=== PATIENT | male | born 1945 | race Caucasian/White ===

== ENCOUNTER 2020-09-08 10:10 | Outpatient (CLI) | payer MEDICARE, SELFPAY | END 2020-09-08 10:11 | disposition home or self-care (01) | LOC: ANHCOVIDVC 10:10 | PROVIDERS: PCP Family Medicine | DX: Z23 Encounter for immunization (principal) | CPT/HCPCS: 0001A; 91300 ==

== ENCOUNTER 2020-09-29 10:01 | Outpatient (CLI) | payer MEDICARE, SELFPAY | END 2020-09-29 10:02 | disposition home or self-care (01) | LOC: ANHCOVIDVC 10:01 | PROVIDERS: PCP Family Medicine | DX: Z23 Encounter for immunization (principal) | CPT/HCPCS: 0002A; 91300 ==

== ENCOUNTER → 2020-11-18 06:29 | Outpatient (CLI) | payer MEDICARE, SELFPAY ==
[2020-11-21 12:21] LABS: SARS-CoV-2 RNA PCR Positive
== END ==
PROVIDERS: PCP Family Medicine; Visit Provider Family Medicine
DX: U07.1 COVID-19 (principal)
CPT/HCPCS: C9803; U0003; U0005

== ENCOUNTER → 2021-01-30 07:10 | Outpatient (CLI) | payer MEDICARE, SELFPAY ==
[2021-01-30 18:17] LABS: SARS-CoV-2 RNA PCR Negative
== END ==
PROVIDERS: PCP Family Medicine; Visit Provider Family Medicine
DX: R05 Cough (principal); Z20.822 Contact with and (suspected) exposure to COVID-19
CPT/HCPCS: C9803; U0003; U0005

== ENCOUNTER → 2021-07-16 14:21 | Outpatient (CLI) | payer MEDICARE, SELFPAY ==
--- NOTE | ~2021-07-16 | XR_ITS ---
EXAMINATION: XR chest 2V DATE: 07/16/2021 14:53 INDICATION: Cough. TECHNIQUE: Frontal and lateral views of the chest were obtained. COMPARISON: Chest single view 10/08/2018, PET CT 08/11/2013 FINDINGS: There are small pleural effusions. There are airspace opacities in right lung base. No pneu mothorax. Cardiomegaly is noted. Median sternotomy wires and mediastinal surgical clips are seen, lik rod from prior coronary artery bypass grafting. There is a left chest wall pacer with leads in the ri ght atrium and right ventricle. There are healed right rib fractures. There is mild chronic anterior wedging of multiple thoracic vertebral bodies. IMPRESSION: 1. Small pleural effusions. 2. Airspace opacities at right lung base, consistent with atelectasis versus pneumonia. 3. Cardiomegaly. Reviewed, dictated and finalized at location A. HATCHERY SPECIALIST IMPRESSION: 1. Small pleural effusions. 2. Airspace opacities at right lung base, consistent with atelectasis versus pn eumonia. 3. Cardiomegaly.
== END ==
PROVIDERS: PCP Family Medicine; Visit Provider Family Medicine
DX: R05.9 Cough, unspecified (principal); J90 Pleural effusion, not elsewhere classified; I51.7 Cardiomegaly; R91.8 Other nonspecific abnormal finding of lung field
CPT/HCPCS: 71046

== ENCOUNTER 2021-11-19 13:16 | Inpatient (IN) | payer MEDICARE, SELFPAY ==
[2021-11-19] VITALS (13 sets, daily range): BP systolic 102–117; BP diastolic 66–85; PULSE 68–81; RESP 13–24; TEMP 35.7–36.8; O2SAT 88–100; BMI 26.9
--- NOTE | ~2021-11-19 | CT_ITS ---
EXAMINATION: CT chest abdomen pelvis w con DATE: 11/19/2021 16:15 INDICATION: Rule out pneumonia, ascites . TECHNIQUE: Computed tomography (CT) of the chest, abdomen, and pelvis was performed with 75 mL Omnipa que 300 intravenous contrast. Automated exposure control and iterative reconstruction technique were employed. The dose-length product was 1019.50 mGy-cm. COMPARISON: PET CT 08/11/2013. FINDINGS: Early phase of contrast injection, with prominent right heart and pulmonary arterial enhancement. Braenna m hardening artifact from arm down positioning. Thoracic aorta: 4.7 cm fusiform ascending thoracic aortic aneurysm. Atherosclerotic arch calcificatio ns. Mild ectasia. Lung parenchyma and airways: Emphysematous and senescent changes. Right lower lobe mass, stable since 2013. Mild bibasilar atelectasis. Thoracic inlet, axillae and chest wall: No thyroid or sofft tissue mass. No axillary lymphadenopathy. Mediastinum: No mass or lymphadenopathy. Pulmonary arteries are well opacified without embolus. Pulmo nary artery dilation as can be seen with pulmonary arterial hypertension. Heart and pericardium: Cardiomegaly. No pericardial effusion. Prior CABG. Coronary artery calcifications: Heavy. Pleura: Small bilateral effusions. Thoracic bones: No acute osseous finding in the chest. ABDOMEN/PELVIS: There is essentially no contrast enhancement in the abdomen. Beam hardening artifact from arm positio n. Liver: Faint arterial phase enhancement. Hepatic vein reflux. Left lobe cyst. Biliary/Gallbladder: Gallbladder is absent. No bile duct dilation. Pancreas: No mass or duct dilation. Spleen: Normal. Adrenals:No mass. Kidneys: Multiple right renal cysts. No stone or hydronephrosis. GI tract: No small or large bowel dilation. Normal appendix. Mesentery/Peritoneum: Moderate volume intraperineal fluid. Retroperitoneum: No mass. Heavy abdominal aortic calcification. 3.5 cm fusiform abdominal aortic aneu rysm. Bilateral common iliac artery aneurysms measuring 3.4 cm on the left and 2.3 cm on the right. L arge left internal iliac artery aneurysm measuring 5.7 cm transverse by 7.[address] ents at the bifurcation feeding aortobifemoral graft, patency not assessed. IVC filter. Pelvis: Uterus not visualized. Bilateral common femoral artery aneurysms with heavy femoral artery ca lcifications and aortobifemoral grafts. Graft patency not assessed. Soft Tissues: Diffuse body wall edema. Left gluteal intramuscular lipoma measuring 11.6 cm in greates t dimension. Abdominopelvic bones: No acute osseous finding in the abdomen/pelvis. IMPRESSION: 1. Limited examinations of the chest and abdomen as described above. 2. No definite CT evidence of pneumonia 3. 4.7 cm ascending thoracic aortic aneurysm, consider CT angiography of the chest in 2-3 years to as sess stability 4. Small bilateral pleural effusions 5. Cardiomegaly with evidence of right heart failure and pulmonary arterial hypertension. 6. Anasarca with moderate ascites. 7. 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 8. 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 Reviewed, dictated and finalized at location K. IMPRESSION: 1. Limited examinations of the chest and abdomen as described above. 2. No definite CT evidence of pneumonia 3. 4.7 cm ascending thoracic aortic aneurysm, consider CT angiography of the ch est in 2-3 years to assess stability 4. Small bilateral pleural effusions 5. Cardiomegaly with evidence of right heart failure and pulmonary arterial hyp ertension. 6. Anasarca with moderate ascites. 7. 5.7 x 7.4 cm left internal iliac aneurysm, consider surgica
--- NOTE | ~2021-11-19 | XR_ITS ---
XR chest 2V 11/24/2021 16:19 Indication: CHF Procedure: PA and lateral views of the chest Comparison: Comparison to multiple prior studies sequentially, with oldest reviewed study dated 02/2012. Findings: Status post median sternotomy for CABG. Moderate cardiomegaly. Pacemaker leads are stable. Chronic right pleural effusion versus pleural thickening. There is right basilar airspace disease whi ch may represent atelectasis, scarring or pneumonia. Multiple healed right rib fractures. The lungs are hyperinflated which is consistent with, but not diagnostic of chronic obstructive pulmo nary disease. There is a partially visualized IVC filter in the upper abdomen. Impression: 1: Right basilar airspace disease is not significantly changed, most likely atelectasis/scarring. Pne umonia less favored. 2: Small right pleural effusion versus pleural thickening. Reviewed, dictated and finalized at location A. Impression: 1: Right basilar airspace disease is not significantly changed, most likely ate lectasis/scarring. Pneumonia less favored. 2: Small right pleural effusion versus pleural thickening.
--- NOTE | ~2021-11-19 | US_ITS ---
EXAMINATION: US paracentesis abd w/image DATE: 11/20/2021 11:41 INDICATION: Ascites. TECHNIQUE: The procedure and its risks, benefits, and alternatives were discussed with the patient. P otential risks discussed included bleeding and infection. The skin was prepped and draped in sterile fashion. 1% lidocaine was used for local anesthesia. Under ultrasound guidance, a 5 Fr catheter with trochar was advanced into the ascites in the left lower quadrant. Fluid was aspirated. The catheter w as removed, and a dressing was applied. There were no immediate complications. FINDINGS: Ultrasound images demonstrate ascites and the catheter within the fluid. IMPRESSION: 1. Successful ultrasound-guided paracentesis yielding 1800 mL of clear, yellow fluid. Reviewed, dictated and finalized at location A.
--- NOTE | ~2021-11-19 | XR_ITS ---
EXAMINATION: XR chest 1V portable DATE: 11/19/2021 13:47 INDICATION: Shortness of breath TECHNIQUE: frontal view of the chest was obtained. COMPARISON: Chest radiograph dated 07/16/2021 FINDINGS: Cardiomegaly. Median sternotomy wires and mediastinal surgical clips are seen, likely from prior lamar nary artery bypass grafting. Three lead pacemaker/AICD seen with leads projecting over the expected l ocations of the right atrial appendage, apex of the right ventricle and overlying the left ventricle likely having traversed the coronary sinus. Slight increase in opacities in the right mid and lower lung zone with blunting at the costophrenic a ngle consistent with decreasing small left pleural effusion with associated atelectasis or pneumonia. Left lung remains clear with no pleural effusion. No pneumothorax. Multiple old right rib fractures. IMPRESSION: 1. Increasing small right pleural effusion with associated atelectasis or pneumonia in the mid and lo wer lung zones. 2. Cardiomegaly. Reviewed, dictated and finalized at location B. IMPRESSION: 1. Increasing small right pleural effusion with associated atelectasis or pneum onia in the mid and lower lung zones. 2. Cardiomegaly.
--- NOTE | 2021-11-19 13:31 | ECG_ITS ---
Measurements Intervals [place] Rate: 73 P: PA: 0 QRS: -22 QRSD: 181 T: 151 QT: 493 QTc: 546 Interpretive Statements ELECTRONIC VENTRICULAR PACEMAKER VENTRICULAR PREMATURE COMPLEX BASELINE ARTIFACT- I, II, III, AVR, AVL NO FURTHER INTERPRETATION IS POSSIBLE ATYPICAL ECG Electronically Signed On 11-19-2021 14:09:42 CDT by Jon Carlos D.O.
[2021-11-19 14:01] LABS: Basophils Percent Auto 0.5 % (0.2-1.2); Eosinophils Percent Auto 0.7 % (0-4.4); Hematocrit 35.2 % (42.0-52.0); Hemoglobin 11.6 g/dL (14.0-18.0); Immature Granulocyte Absolute 0.03 K/mm3 (0.00-0.031); Immature Granulocyte Percent A 0.5 % (0-0.5); Lymphocytes Absolute Auto 0.25 K/mm3 (0.9-3.2); Lymphocytes Percent Auto 4.2 % (18.3-44.2); Mean Corpuscular Hemoglobin 35.6 pg (26-34); Mean Platelet Volume 10.1 fl (7.4-10.4); Monocytes Absolute Auto 0.9 K/mm3 (0.1-0.6); Monocytes Percent Auto 15.1 % (2.6-8.5); Neutrophils Absolute Auto 4.8 K/mm3 (1.3-6.7); Platelet Count Result 155 k/mm3 (150-375); Red Blood Count 3.26 M/mm3 (4.6-6.20); Red Cell Distribution Width 15.9 % (11.5-14.5)
[2021-11-19 14:12] LABS: Alanine Aminotransferase 23 U/L (6-50); Albumin Level 3.6 g/dL (3.5-5.1); Alkaline Phosphatase 123 U/L (38-126); Anion Gap 5 mmol/L (8-16); Aspartate Amino Transferase 38 U/L (17-59); Blood Urea Nitrogen 28 mg/dL (9-20); Calcium 8.3 mg/dL (8.4-10.2); Carbon Dioxide 31 mmol/L (22-30); Chloride 95 mmol/L (98-107); Estimated Glomerular Filt Rate > 60; Glucose 121 mg/dL (65-110); Potassium 4.6 mmol/L (3.4-5.0); Sodium 131 mmol/L (137-145)
--- NOTE | 2021-11-19 14:16 | ED.GENADULT ---
HPI - General Adult General Chief complaint: Weakness Stated complaint: short of breath Time Seen by Provider: 11/19/21 13:28 Source: patient and family Limitations: no limitations History of Present Illness HPI narrative: Patient is 76 years old white male presented to the ED with gradual progression of shortness of breath on exertion, swelling of the lower extremities, spells of coughing lasted 10 to 15 minutes. Patient was seen his family physician 1 week ago, Lasix was increased and spironolactone was started. History of COVID infection March 2020, hypertension, hyperlipidemia, CABG x2, 8 stent lower extremity and aortic aneurysm. Patient currently on Plavix, he does not smoke and drinks occasionally. He denies any fever, chills, nausea, vomiting, diarrhea, constipation. Related Data Home Medications Medication Instructions Recorded Confirmed carvedilol 11/19/21 clopidogrel 11/19/21 dapagliflozin [Farxiga] mg 11/19/21 furosemide 11/19/21 nitroglycerin mg 11/19/21 pantoprazole PO 11/19/21 simvastatin mg 11/19/21 spironolactone 11/19/21 Allergies Allergy/AdvReac Type Severity Reaction Status Date / Time No Known Allergies Allergy Unknown Verified 11/19/21 13:34 Review of Systems Review of Systems: All systems reviewed & are unremarkable except as noted in HPI and below PMFSH Past Medical History Medical History AAA (abdominal aortic aneurysm) 07/1998 Surgical History Surgical History History of coronary artery bypass graft History of endarterectomy Social History Social History Smoking status: Never smoker Alcohol intake: current Substance use: never Substance use type: does not use Exam Narrative: General appearance: Well-developed, well-nourished Skin: Normal color, 4+ edema lower extremity bilaterally Head: Normocephalic, nontraumatic Eyes: Clear conjunctiva ENT: Oropharynx normal, ears normal, nose normal Neck: Supple, nontender Chest and respiratory: Airway patent, no respiratory distress, no accessory muscle use Heart: Regular rate/rhythm Abdomen: Soft, nontender, no organomegaly, quiet bowel sounds, large ascites Vascular: Normal peripheral pulses, normal capillary refill. Musculoskeletal: Normal range of motion, nontender back Neurologic: Alert and oriented ?3, [employer] is normal as tested, no gross motor deficit Course Vital Signs Vital signs: Vital Signs Temperature 35.7 C L 11/19/21 13:19 Pulse Rate 68 11/19/21 13:19 Respiratory Rate 24 H 11/19/21 13:19 Blood Pressure 103/71 11/19/21 13:19 Pulse Oximetry 88 L 11/19/21 13:19 Temperature 35.7 C L 11/19/21 13:19 Pulse Rate 71 11/19/21 16:34 Respiratory Rate 20 11/19/21 16:34 Blood Pressure 107/74 11/19/21 16:34 Pulse Oximetry 100 11/19/21 16:34 Medical Decision Making Vital Signs Vital Signs: Vital Signs Temperature 35.7 C L 11/19/21 13:19 Pulse Rate 68 11/19/21 13:19 Respiratory Rate 24 H 11/19/21 13:19 Blood Pressure 103/71 11/19/21 13:19 Pulse Oximetry 88 L 11/19/21 13:19 Temperature 35.7 C L 11/19/21 13:19 Pulse Rate 71 11/19/21 16:34 Respiratory Rate 20 11/19/21 16:34 Blood Pressure 107/74 11/19/21 16:34 Pulse Oximetry 100 11/19/21 16:34 Lab Data Result diagrams: 11/19/21 13:51 11/19/21 13:51 Labs: Lab Results 11/19/21 11/19/21 11/19/21 Range/Units 13:51 13:51 13:51 WBC 6.0 (4.5-10.0) K/mm3 RBC 3.26 L (4.6-6.20) M/mm3 Hgb 11.6 L (14.0-18.0) g/d
[2021-11-19 14:20] LABS: INR 1.4; NT Pro B Type Natriuretic Pept 23100 pg/mL (5-100); Partial Thromboplastin Time 37.2 SECONDS (22.3-36.8); Prothrombin Time 16.5 Seconds (11.1-14.7)
[2021-11-19 14:26] LABS: Troponin I 0.015 ng/mL (0.000-0.034)
[2021-11-19 14:35] LABS: Alveolar/Arterial O2 Gradient 21.8 mmHg; Base Excess ABG 1.4 mEq/l (+/-2.0); Fractional Inspired Oxygen 21 %; HCO3 ABG 25.7 mEq/l (22.0-26.0); Oxygen Content ABG 16.5 %vol (16.0-22.0); Oxygen Saturation ABG 96.2 % (95.0-100.0); Oxyhemoglobin 94.2 % THb (90.0-100.0); PCO2 ABG 39.6 mmHg (35.0-45.0); PO2 ABG 80.5 mmHg (80.0-100.0); PO2 FiO2 Ratio Arterial Blood 3.83 %; Total Hemoglobin 12.4 g/dL (12.0-18.0)
[2021-11-19 15:02] LABS: Appearance Urine Clear (Clear); Bilirubin Urine Negative (Negative); Blood Urine Negative (Negative); Color Urine Yellow (Yellow); Glucose Urine UA 1+ mg/dL (Negative); Ketones Urine Negative (Negative); Leukocyte Esterase Ur Negative LEU/UL (Negative); Nitrate Urine Negative (Negative); Protein Urine Negative (Negative); Urobilinogen Urine 0.2 mg/dL (<2.0)
[2021-11-19 15:04] LABS: Add Urine Microscopic? NO
[2021-11-19 15:07] LABS: SARS-CoV-2 RNA PCR Negative
[2021-11-19] MEDS: FUROSEMIDE INJ 40 MG/4 ML VIAL 60 MG IV PUSH (15:21)
[2021-11-19 15:35] LABS: CRP < 0.5 mg/dL (<1.0)
[2021-11-19 16:03] LABS: Lactic Acid Reflex 1.2 mmol/L (0.7-2.0)
[2021-11-19 17:19] LABS: Troponin I 0.014 ng/mL (0.000-0.034)
--- NOTE | 2021-11-19 19:00 | ADMGEN ---
This patient, Bairon Rodas, was admitted to IMU Room 201-01. Patient/family oriented to hospital policies and general routines including ID bracelet, bed and alarms, visiting hours, pain management, procedures, bathroom and other care routines, personal items, smoking policy, room service/diet, and visiting hours. Information on how to activate the Rapid Response Team has been discussed. Patient/Family are encouraged to report perceived risks to care and to ask questions if they do not understand what they are told or what they should do.
[2021-11-19 19:50] LABS: Troponin I 0.021 ng/mL (0.000-0.034)
--- NOTE | 2021-11-19 21:13 | PM.IMHP ---
H&P: HPI History of Present Illness Date/Time: 11/19/21 21:13 Chief Complaint: Shortness of breath. Narrative: This is a 76-year-old male with past medical history significant for systolic heart failure ejection fraction calculated 15% to 18%, AICD, peripheral arterial vascular disease, abdominal aortic aneurysm, coronary artery disease status post coronary artery bypass graft, type 2 diabetes mellitus, GERD. Patient presents to the emergency room due to shortness of breath which is present at rest initially present only at exertion but then with minimal activity now at rest, PND, orthopnea, patient reclines in his bed, bilateral lower extremity swelling, increased abdominal girth, which has made the patient very uncomfortable. Patient denies any chest pain, cough, sputum production, fevers, chills, rigors, syncope, near syncope, dizziness, lightheadedness. Preliminary workup was significant for brain natriuretic peptide 23 cell sent, CT of abdomen and pelvis with moderate amount of ascites. Patient has been admitted for further evaluation management and treatment. Review of Systems Review of Systems: Bilateral lower extremity swelling, increased abdominal girth, PND, orthopnea, shortness of breath. Constitutional: Comments: No fevers, no rigors, no chills, weight gain. Eyes: Comments: Denies any vision changes ENT: Denies dysphagia, Denies vertigo, Denies dizziness, Denies dry mouth, Denies nasal congestion, Denies nasal discharge, Denies neck pain, Denies odynophagia and Denies sore throat Comments: Denies Cardiovascular: Cardiovascular: Denies chest pain, Denies syncope, Reports pedal edema, Reports edema, Denies irregular heart rhythm, Denies claudication, Reports leg edema, Denies lightheadedness, Denies radiating jaw, neck or arm pain, Reports dyspnea, Reports dyspnea on exertion, Reports orthopnea and Reports paroxysmal nocturnal dyspnea Respiratory: Respiratory: Denies change in phlegm color, Denies chest congestion, Reports cough and Denies excessive phlegm production Gastrointestinal: Gastrointestinal: Reports bloating, Denies dyspepsia, Denies heartburn, Denies diarrhea, Denies nausea and Denies vomiting Genitourinary: Genitourinary: Denies dysuria Musculoskeletal: Musculoskeletal: Denies myalgias Integumentary/Breasts: Skin/Breast: Denies rash Neurologic: Denies vertigo, Denies dizziness, Denies focal weakness and Denies Sensory deficit (Neuro) Endocrine: Endocrine: Denies cold intolerance, Denies fatigue, Denies flushing, Denies heat intolerance, Denies polyphagia, Denies polydipsia, Denies polyuria and Denies palpitations Hematologic/Lymphatic: Hematologic/Lymphatic: Reports no additional hematologic/lymphatic complaints and Reports as per HPI Allergic/Immunologic: Allergic/Immunologic: Reports no additional allergic/immunologic complaints and Reports as per HPI PMFSH Past Medical History Medical History (Updated 11/20/21 @ 12:16 by Kenneth Mcclain MD) AAA (abdominal aortic aneurysm) 07/1998 CAD (coronary artery disease) CHF (congestive heart failure) Surgical History Surgical History History of coronary artery bypass graft History of endarterectomy Social History Social History Smoking packs per day: 2 Smoking cigarettes per day: 40.0 Years smoked: 30 Smoking pack-years: 60.00 Smoking status: Former smoker Tobacco type: cigarettes Alcohol intake: current Drinks per week: 7 Substance use: never Substance use type: does not use Spiritual care concerns: Yes (Rastafarian) Meds Home Medications and Allergies Home Medications Medication Instructions Recorded Confirmed Type carvedilol 12.5 mg tablet (Coreg) 12.5 mg PO DAILY 11/19/21 11/19/21 History carvedilol 25 mg tablet 25 mg PO HS 11/19/21 11/19/21 History clopidogrel 75 mg tablet 75 mg PO HS 11/19/21 11/19/21 Histor
[2021-11-19] MEDS: FUROSEMIDE INJ 40 MG/4 ML VIAL IV PUSH (22:00)
[2021-11-19] MEDS: carvediloL 25 MG TABLET PO (23:38)
[2021-11-19] MEDS: TIZANIDINE HCL 4 MG TABLET PO (23:38)
[2021-11-19] MEDS: SIMVASTATIN 20 MG TABLET PO (23:38)
[2021-11-19] MEDS: CLOPIDOGREL BISULFATE 75 MG TABLET PO (23:39)
[2021-11-19] MEDS: SACUBITRIL/VALSARTAN 24-26 MG TABLET 1 TAB PO (23:39)
[2021-11-20] VITALS (19 sets, daily range): BP systolic 99–108; BP diastolic 58–74; PULSE 70–82; RESP 16–26; TEMP 36.3–37.2; O2SAT 91–99
--- NOTE | 2021-11-20 | ECHO_ITS ---
Patient Info Name: Bairon Rodas Age: 76 years : 1945 Gender: Male Ht: 70 in Wt: 187 lbs BSA: 2.06 m2 HR: 71 bpm BP: 102 / 68 mmHg Heart Rhythm: Sinus Arrhythmia Technical Quality: Fair Exam Date: 11/20/2021 7:46 AM Exam Location: [facility] Patient Status: Inpatient Admit Date: 11/19/2021 Staff Ordering Physician: Monica Fountain MD Chief Information Security Officer: Judy Pierce RDCS Attending Provider: Elmer Tobias MD Referring Physician: Essie LUCIANO; Exam Type: CA echo doppler color flow Study Info Indications - CHF Complete two-dimensional, color flow and Doppler transthoracic echocardiogram is performed. Summary 1. Complete two-dimensional, color flow and Doppler transthoracic echocardiogram is performed. 2. Moderate to severe LV enlargement, mild LVH, severe global LV systolic dysfunction, ejection fraction less than 15%. Diastolic dysfunction with elevated left atrial pressures. RV enlargement with systolic dysfunction. Severe biatrial enlargement. ICD/pacemaker leads in RA/RV. Mitral valve leaflets mildly thickened, mild MR. Normal aortic valve, no stenosis, mild aortic regurgitation. Moderate tricuspid regurgitation, moderate pulmonary hypertension, RVSP 46 mmHg. Mild pulmonic regurgitation. Dilated IVC without respiratory collapse. Left pleural effusion. Left Ventricle Left ventricular chamber dimension is moderately enlarged. Left ventricular systolic function is severely reduced, estimated at <15%. There is mildly increased left ventricular wall thickness. The left ventricular diastolic function is abnormal. E/e' 21.4 is abnormal. Right Ventricle Right ventricular chamber dimension is moderately enlarged. Linear artifact in right ventricle suggestive of catheter(s), pacemaker lead(s), or ICD lead(s). Left Atria Left atrial chamber dimension is severely enlarged. Right Atria Right atrial chamber dimension is moderately enlarged. Linear artifact in the right atrium suggestive of catheter(s), pacemaker lead(s), or ICD lead(s). Aortic Valve The aortic valve is normal. There is mild aortic valve stenosis with a peak velocity of 109 cm/s, mean gradient of 3 mmHg, and aortic valve area of 2.0 cm2. There is trace aortic valve regurgitation. Pulmonic Valve The pulmonic valve is not well visualized. There is mild pulmonic regurgitation. Mitral Valve The mitral valve has thickened leaflets. There is mild mitral valve regurgitation. Tricuspid Valve The tricuspid valve leaflets are normal. There is moderate tricuspid valve regurgitation. Moderate pulmonary hypertension, estimated pulmonary arterial systolic pressure is 46 mmHg. Pericardium/Pleural The pericardium appears normal. There is no pericardial effusion. Inferior Vena Cava Dilated inferior vena cava with no collapse upon inspiration consistent with elevated right atrial pressure, 15 mmHg. Aorta The aortic root size at the sinus of Valsalva is normal. Left Ventricular Outflow Tract Name Value Normal LVOT 2D LVOT Diameter 2.4 cm LVOT Doppler LVOT Peak Gradient 1 mmHg LVOT
[2021-11-20 06:40] LABS: Anion Gap 6 mmol/L (8-16); Blood Urea Nitrogen 31 mg/dL (9-20); Calcium 8.4 mg/dL (8.4-10.2); Carbon Dioxide 31 mmol/L (22-30); Chloride 93 mmol/L (98-107); Estimated CRCL calculation 56 ml/min; Estimated Glomerular Filt Rate 59; Glucose 97 mg/dL (65-110); Potassium 4.1 mmol/L (3.4-5.0); Sodium 130 mmol/L (137-145)
[2021-11-20 07:37] LABS: Device ROOM AIR; Modified Allen's Test Pass; Site Drawn RIGHT RADIAL
--- NOTE | 2021-11-20 08:18 | PM.CNCAR ---
Assessment and Plan Assessment and plan (1) Acute on chronic systolic CHF (congestive heart failure), NYHA class 4: Code(s): I50.23 - Acute on chronic systolic (congestive) heart failure Status: Acute Assessment and Plan: 76-year-old male with CAD, history of CABG x2 in November 1998 at [facility] (unknown grafts, operative report not available); history of PCI/stenting; CHF with severely reduced ejection fraction status post Bi V ICD placement; PAD, history of AAA repair/aortobifemoral bypass graft; history of tobacco abuse. Patient has baseline NYHA functional class III symptoms, admitted to the hospital with acute on chronic CHF with reduced ejection fraction with symptoms of worsening shortness of breath, abdominal distention and lower extremity swelling. Bedside echocardiogram on my preliminary evaluation shows severe biventricular enlargement and systolic dysfunction. Symptoms of dyspnea have modestly improved with IV diuresis. -continue IV diuresis with furosemide. May need ionotropic support if necessary. -decrease dose of carvedilol to 6.25 mg p.o. b.i.d. for now, may optimize dose when patient is out of decompensated state. -continue sacubitril/valsartan, spironolactone. Resume SGLT2 inhibitor. -discussed with patient about his severe ischemic cardiomyopathy. He has severe biventricular failure with baseline functional class III symptoms. His previous MPI has shown severe LV systolic dysfunction with fixed defect. May consider outpatient viability test to see if there is any salvageable myocardium. Once patient is out of decompensated state, it would be reasonable to refer patient to Heart failure Clinic at a tertiary care center to check his candidacy for mechanical support device (destination versus bridge). Patient's prognosis guarded. (2) CAD (coronary artery disease): Code(s): I25.10 - Atherosclerotic heart disease of [place] coronary artery without angina pectoris Status: Acute Assessment and Plan: Continue clopidogrel, statin. (3) PAD (peripheral artery disease): Code(s): I73.9 - Peripheral vascular disease, unspecified Status: Acute Assessment and Plan: Continue clopidogrel, statin. Additional Plan DVT prophylaxis. History of Present Illness History of Present Illness Consult date/time: 11/20/21 08:18 DATE OF CONSULT: 11/20/2021 REASON FOR CONSULT: CHF REQUESTING PHYSICIAN:Bhakti Chun MD CHIEF COMPLAINT: Worsening shortness of breath HPI: 76-year-old male with CAD, history of CABG x2 in November 1998 at [facility] (unknown grafts, operative report not available); history of PCI/stenting; CHF with severely reduced ejection fraction status post Bi V ICD placement; PAD, history of AAA repair/aortobifemoral bypass graft; history of tobacco abuse. Patient follows-up with Dr. Stark for cardiovascular care. He [facility] Room on 11/19/2021 with complaints of worsening shortness of breath, abdominal distension and lower extremity swelling. At baseline, patient has NYHA functional class 3 symptoms. He has dyspnea with minimal exertion. He reports worsening dyspnea for last 6 weeks with dyspnea at rest associated with weight gain. He denies chest pain. He denies palpitations, dizziness or syncope. Denies any ICD shocks. Patient states that he was on anticoagulation in the past for AFib but stopped taking it for some unknown reasons, and has been only on single antiplatelet treatment with clopidogrel. EKG on my personal evaluation showed ventricular paced rhythm. Serial troponins [place] [id number]. Chest x-ray shows increasing small right pleural effusion with associated atelectasis or pneumonia in the mid and lower lung zones, cardiomegaly. CT chest abdomen, pelvis shows 4.7 cm ascending thoracic aortic aneurysm,small bilateral pleural effusion, cardiomegaly with evidence of ri
[2021-11-20] MEDS: SACUBITRIL/VALSARTAN 24-26 MG TABLET 1 TAB PO ×2 (09:13→20:20)
[2021-11-20] MEDS: SPIRONOLACTONE 25 MG TABLET PO (09:13)
[2021-11-20] MEDS: FUROSEMIDE INJ 40 MG/4 ML VIAL IV PUSH ×2 (09:13→20:19)
[2021-11-20] MEDS: PANTOPRAZOLE 40 MG TABLET PO (09:13)
[2021-11-20 09:22] LABS: Alanine Aminotransferase 20 U/L (6-50); Albumin Level 3.2 g/dL (3.5-5.1); Alkaline Phosphatase 113 U/L (38-126); Aspartate Amino Transferase 32 U/L (17-59); Bilirubin,Total 1.2 mg/dL (0.2-1.3)
--- NOTE | 2021-11-20 10:52 | PC.NURSE ---
Patient transporting to ultrasound for paracentesis. Physician order that nurse does not have to accompany.
--- NOTE | 2021-11-20 11:46 | PC.NURSE ---
[facility] flyer was given to patient.
--- NOTE | 2021-11-20 12:01 | PM.IMPN ---
Progress Note: A&P Assessment and Plan (1) CHF (congestive heart failure): Qualifiers: Heart failure chronicity: unspecified Heart failure type: unspecified Qualified Code(s): I50.9 - Heart failure, unspecified Code(s): I50.9 - Heart failure, unspecified Status: Acute Assessment and Plan: Patient with Acute on Chronic Systolic and Diastolic CHF exacerbation. Patient presents with weakness, abdominal bloating leg edema consistent with fluid overload. Chest x-ray showing increasing right pleural effusion and cardiomegaly. CT of the chest, abdomen pelvis was performed which did have some limitations showing small bilateral pleural effusions and ascites. BNP was 23K. Troponin negative x3. EKG showed paced rhythm. Echocardiogram showed severe LV enlargement with severe global LV systolic dysfunction and EF of less than 15% as well as abnormal diastolic function. He also has RV enlargement with right ventricular systolic dysfunction and severe biatrial enlargement. Mild valvular disease as well as moderate TR and moderate pulmonary hypertension. Patient on admission was on spironolactone, Entresto, Lasix, dapagliflozin and Coreg. Patient has been started on IV diuretics. He is having clinical improvement. Monitor renal function closely given the high risk for cardiorenal syndrome. PT/OT (2) Anasarca: Code(s): R60.1 - Generalized edema Status: Acute Assessment and Plan: Patient with anasarca. This is related to CHF. Renal functions normal so doubt related kidney issues. Liver appears normal on imaging. Albumin is 3.2 so felt unlikely that his anasarca is related to liver failure. patient noted to have ascites again felt related to the CHF. Paracentesis has been ordered. Will add labs to this. Follow-up on these results but suspect this will be transudative from his CHF. Continue current diuresis. Monitor closely. (3) AAA (abdominal aortic aneurysm): Code(s): I71.4 - Abdominal aortic aneurysm, without rupture Status: Inactive Assessment and Plan: CT of the chest on admission shows a 4.7 cm fusiform ascending thoracic aortic aneurysm. Given the severity of his cardiac condition however, it is unlikely that this will be repaired given the high risk. Blood pressure remains well controlled. 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 Also of note is the aortobifemoral graft but patency was not assessed this imaging study. 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 Surgical referral was recommended but patient is being followed by Cardiology. He may be able to undergo stent placement but will defer to Cardiology. Continue Plavix and Zocor. (5) CAD (coronary artery disease): Code(s): I25.10 - Atherosclerotic heart disease of [place] coronary artery without angina pectoris Status: Acute Assessment and Plan: Stable. Most recent Lexiscan was in 2019 showed no reversible ischemia did have fixed inferior defect and his EF was 26%. He has a history of [place] 1998 with another one at some later but not certain time. Underwent 2 vessel CABG in 1998 with MIXON to the LAD and a vein graft to the occluded RCA. He did have severe LV dysfunction at that time but it improved. unclear if ischemia is contributing to his worsening EF but troponin is negative and no complaints of chest pain. EKG showing paced rhythm. Subjective Date/time seen: 11/20/21 12:01 Interval history: 76yo male with CHF, PAD and CAD here for weakness, abdominal bloating and leg edema. He has been havi
[2021-11-20 12:37] LABS: Appearance Peritoneal Fluid Cloudy (Clear); Source Peritoneal Fluid Peritoneal Fluid
[2021-11-20 12:38] LABS: Color Peritoneal Fluid Brown (Colorless); Lymphocytes Peritoneal Fluid 57 %; Macrophages Peritoneal Fluid 7 %; Mesothelial Cells Peritoneal Fluid 1 %; Monocytes Peritoneal Fluid 13 %; Neutrophils Peritoneal Fluid 22 % (0-25); Nucleated Cells Peritoneal Flu 72 /uL (0-500); RBC Peritoneal Fluid 2370 /uL (0-100000)
[2021-11-20] MEDS: CLOPIDOGREL BISULFATE 75 MG TABLET PO (20:19)
[2021-11-20] MEDS: SIMVASTATIN 20 MG TABLET PO (20:19)
[2021-11-20] MEDS: carvediloL 6.25 MG TABLET PO (20:19)
[2021-11-21] VITALS (16 sets, daily range): BP systolic 102–113; BP diastolic 64–83; PULSE 70–83; RESP 16–18; TEMP 36.1–37.1; O2SAT 92–100
[2021-11-21 04:45] LABS: Basophils Percent Auto 0.5 % (0.2-1.2); Eosinophils Percent Auto 0.5 % (0-4.4); Hematocrit 33.9 % (42.0-52.0); Hemoglobin 11.4 g/dL (14.0-18.0); Immature Granulocyte Absolute 0.04 K/mm3 (0.00-0.031); Immature Granulocyte Percent A 0.7 % (0-0.5); Lymphocytes Percent Auto 7.1 % (18.3-44.2); Mean Corpuscular HGB Conc 33.6 g/dl (32-36); Mean Corpuscular Hemoglobin 35.5 pg (26-34); Mean Corpuscular Volume 105.6 fl (80-100); Mean Platelet Volume 9.9 fl (7.4-10.4); Monocytes Percent Auto 17.3 % (2.6-8.5); Neutrophils Absolute Auto 4.1 K/mm3 (1.3-6.7); Neutrophils Percent Auto 73.9 % (45.5-73.1); Platelet Count Result 156 k/mm3 (150-375); Red Blood Count 3.21 M/mm3 (4.6-6.20); Red Cell Distribution Width 15.9 % (11.5-14.5); White Blood Count 5.6 K/mm3 (4.5-10.0)
[2021-11-21 04:57] LABS: Alanine Aminotransferase 20 U/L (6-50); Albumin Level 3.5 g/dL (3.5-5.1); Alkaline Phosphatase 115 U/L (38-126); Anion Gap 4 mmol/L (8-16); Aspartate Amino Transferase 33 U/L (17-59); Bilirubin,Total 1.5 mg/dL (0.2-1.3); Blood Urea Nitrogen 35 mg/dL (9-20); Calcium 8.6 mg/dL (8.4-10.2); Carbon Dioxide 31 mmol/L (22-30); Chloride 91 mmol/L (98-107); Estimated CRCL calculation 48 ml/min; Estimated Glomerular Filt Rate 50; Glucose 110 mg/dL (65-110); Potassium 4.5 mmol/L (3.4-5.0); Sodium 126 mmol/L (137-145)
[2021-11-21 06:05] LABS: Folic Acid 19.4 ng/mL (2.76->20)
--- NOTE | 2021-11-21 08:51 | PM.PNCARD ---
Progress Note: A&P Assessment and Plan (1) CHF (congestive heart failure): Qualifiers: Heart failure chronicity: unspecified Heart failure type: unspecified Qualified Code(s): I50.9 - Heart failure, unspecified Code(s): I50.9 - Heart failure, unspecified Status: Acute Plan 76-year-old man with profound ischemic cardiomyopathy. For a number of years he had been quite stable on good medical regimen with his Bi V ICD he now is decompensated for the last month or so with significant volume overload. I am going to start a low dose of IV dobutamine to try to facilitate his diuresis. Agree that he would benefit from referral to the Heart failure [facility] at [place]. Will facilitate this referral. Prognosis of course is guarded given his very poor ejection fraction/low output Elmer Stark MD [facility] Time Spent With Patient Time with patient: 15 - 25 minutes Subjective Date/time seen: Date of service: 11/21/21 08:51 Interval history: Follow-up visit in this 76-year-old man with: Profound ischemic cardiomyopathy despite appropriate medical therapy and Bi V ICD he presents with significant decompensation with volume overload. Feeling better following paracentesis of 1800 cc yesterday. Still has moderate lower extremity edema. Sitting in the chair at the bedside otherwise essentially comfortable Exam Const: General: comfortable and no acute distress HENMT: Mouth: Yes moist mucous membranes Eyes: Sclera: sclerae normal Pupils: Equal, round and reactive pupils present Neck: Neck: supple Other: Normal carotid upstrokes diminished volume. About 3 cm of jugular venous distention noted Resp: Effort & Inspection: normal respiratory effort Other: Rales noted at the left base Cardio: Rate: regular rate Rhythm: regular rhythm Other: PMI enlarged and laterally displaced, no audible murmur GI: GI Palp: Yes Soft to palpation Auscultation: normal bowel sounds Skin: General skin exam: normal color Neuro: Other: Normal cognition Extrem: Other: 2 to 3+ soft pitting edema up to the knees Objective Data Vital Signs Vital Signs: Vital Signs - 24 hr 11/20/21 12:00 11/20/21 10:00 11/20/21 12:00 Temperature 37.2 C Pulse Rate 73 72 75 Respiratory Rate 16 Blood Pressure 102/58 L Pulse Oximetry 91 Oxygen Delivery Fraction of Inspired Oxygen 11/20/21 12:00 11/20/21 14:00 11/20/21 16:00 Temperature 37.0 C Pulse Rate 74 71 Respiratory Rate 16 Blood Pressure 103/66 Pulse Oximetry 91 Oxygen Delivery Room Air Fraction of Inspired Oxygen 11/20/21 16:00 11/20/21 16:00 11/20/21 18:00 Temperature Pulse Rate 73 82 Respiratory Rate Blood Pressure Pulse Oximetry Oxygen Delivery Room Air Fraction of Inspired Oxygen 11/20/21 20:00 11/20/21 20:19 11/20/21 20:00 Temperature 36.6 C Pulse Rate 75 73 73 Respiratory Rate 18 Blood Pressure 99/69 L Pulse Oximetry 99 Oxygen Delivery Fraction of Inspired Oxygen 11/20/21 20:00 11/20/21 21:44 11/20/21 21:52 Temperature Pulse Rate 71 79 Respiratory Rate 18 22 H Blood Pressure Pulse Oximetry 99 97 Oxygen Delivery Room Air CPAP Fraction of Inspired Oxygen 11/20/21 21:53 11/20/21 23:33 11/20/21 23:33 Temperature Pulse Rate 71 79 Respiratory Rate 22 H Blood Pressure Pulse Oximetry 97 97 Oxygen Delivery CPAP Room Air Fraction of Inspired Oxygen 11/21/21 00:00 11/21/21 02:00 11/21/21 04:00 Temperature 36.1 C L Pulse Rate 74 72 73 Respiratory Rate 16 Blood Pressure 105/68 Pulse Oximetry 99 Oxygen Delivery Fraction of Inspired Oxygen 11/21/21 04:00 11/21/21 04:00 11/21/21 05:57 Temperature 36.2 C L Pulse Rate 73 73 72 Respiratory Rate 16 18 Blood Pressure 102/70 Pulse Oximetry 99 98 Oxygen Delivery Room Air Fraction of Inspired Oxygen 11/21/21 08:00 Temperature 36.4 C Pulse Rate 73
[2021-11-21] MEDS: SPIRONOLACTONE 25 MG TABLET PO (09:13)
[2021-11-21] MEDS: ENOXAPARIN 40 MG/0.4 ML SYRINGE SUB-Q (09:13)
[2021-11-21] MEDS: PANTOPRAZOLE 40 MG TABLET PO (09:14)
[2021-11-21] MEDS: SACUBITRIL/VALSARTAN 24-26 MG TABLET 1 TAB PO ×2 (09:14→20:26)
[2021-11-21] MEDS: carvediloL 6.25 MG TABLET PO ×2 (09:14→20:25)
[2021-11-21] MEDS: EMPAGLIFLOZIN 10 MG TABLET PO (09:14)
[2021-11-21] MEDS: FUROSEMIDE INJ 40 MG/4 ML VIAL IV PUSH ×2 (09:14→20:25)
[2021-11-21] MEDS: DOBUTamine 250 MG/D5W 250 ML 250 MG/250 ML BAG 12.21 MG IV CONT (10:14)
--- NOTE | 2021-11-21 11:50 | PM.IMPN ---
Progress Note: A&P Assessment and Plan (1) CHF (congestive heart failure): Qualifiers: Heart failure chronicity: unspecified Heart failure type: unspecified Qualified Code(s): I50.9 - Heart failure, unspecified Code(s): I50.9 - Heart failure, unspecified Status: Acute Assessment and Plan: Patient with Acute on Chronic Systolic and Diastolic CHF exacerbation. Patient presents with weakness, abdominal bloating leg edema consistent with fluid overload. Chest x-ray showing increasing right pleural effusion and cardiomegaly. CT of the chest, abdomen pelvis was performed which did have some limitations showing small bilateral pleural effusions and ascites. BNP was 23K. Troponin negative x3. EKG showed paced rhythm. Echocardiogram showed severe LV enlargement with severe global LV systolic dysfunction and EF of less than 15% as well as abnormal diastolic function. He also has RV enlargement with right ventricular systolic dysfunction and severe biatrial enlargement. Mild valvular disease as well as moderate TR and moderate pulmonary hypertension. Patient on admission was on spironolactone, Entresto, Lasix, dapagliflozin and Coreg. Patient was started on IV diuretics with good UOP and negative fluid balance. He is having clinical improvement. Cr up to 1.4 and Na down to 126. Monitor renal function closely given the high risk for cardiorenal syndrome. Dobutamine started at low dose. Continue to monitor. (2) Anasarca: Code(s): R60.1 - Generalized edema Status: Acute Assessment and Plan: Patient with anasarca. This is related to CHF. Renal function was normal aso doubt related to kidney issues. Liver appears normal on imaging, LFTs normal and Albumin is 3.2 so felt unlikely that his anasarca is related to liver failure. Patient noted to have ascites again felt related to the CHF. Paracentesis was performed 11/20 showing cloudy fluid but only 72 WBC. Peritoneal fluid pathology negative for malignancy. Blood cultures no growth to date. Peritoneal fluid culture pending. Continue current diuresis. Monitor closely. (3) AAA (abdominal aortic aneurysm): Code(s): I71.4 - Abdominal aortic aneurysm, without rupture Status: Inactive Assessment and Plan: CT of the chest on admission shows a 4.7 cm fusiform ascending thoracic aortic aneurysm. Given the severity of his cardiac condition however, it is unlikely that this will be repaired given the high risk. Blood pressure remains well controlled. 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 Also of note is the aortobifemoral graft but patency was not assessed with this imaging study. 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 Surgical referral was recommended but patient is being followed by Cardiology. He may be able to undergo stent placement in the future but will defer to Cardiology. Continue Plavix and Zocor. (5) CAD (coronary artery disease): Code(s): I25.10 - Atherosclerotic heart disease of [place] coronary artery without angina pectoris Status: Acute Assessment and Plan: Stable. Most recent Lexiscan was in 2019 showed no reversible ischemia did have fixed inferior defect and his EF was 26%. He has a history of [place] 1998 with another one at some later but not certain time. Underwent 2 vessel CABG in 1998 with MIXON to the LAD and a vein graft to the occluded RCA. He did have severe LV dysfunction at that time but it improved. unclear if ischemia is contributing to his worsening EF this admission but troponin is negative and no complaints o
[2021-11-21] MEDS: PROMETHAZINE HCL 12.5 MG TABLET PO (16:49)
[2021-11-21] MEDS: CLOPIDOGREL BISULFATE 75 MG TABLET PO (20:26)
[2021-11-21] MEDS: SIMVASTATIN 20 MG TABLET PO (20:26)
--- NOTE | 2021-11-21 22:54 | PCRCNOTE ---
Pt refusing CPAP. Pt states that the mask is uncomfortable and he is not able to sleep with it on. Pt was advised to let his nurse know if he changes his mind or notices any trouble with his breathing.
[2021-11-22] VITALS (18 sets, daily range): BP systolic 89–124; BP diastolic 52–76; PULSE 70–82; RESP 16–18; TEMP 36–36.7; O2SAT 90–100
[2021-11-22] MEDS: DOBUTamine 250 MG/D5W 250 ML 250 MG/250 ML BAG 12.21 MG IV CONT ×2 (03:55→23:21)
[2021-11-22 05:15] LABS: Hematocrit 31.7 % (42.0-52.0); Immature Platelet Fraction Pct 5.4 % (0.9-11.2); Mean Corpuscular HGB Conc 34.7 g/dl (32-36); Mean Corpuscular Hemoglobin 36.2 pg (26-34); Mean Corpuscular Volume 104.3 fl (80-100); Mean Platelet Volume 10.3 fl (7.4-10.4); Platelet Count Result 150 k/mm3 (150-375); Red Blood Count 3.04 M/mm3 (4.6-6.20); Red Cell Distribution Width 15.6 % (11.5-14.5); White Blood Count 5.5 K/mm3 (4.5-10.0)
[2021-11-22 05:22] LABS: Albumin Level 3.3 g/dL (3.5-5.1); Anion Gap 5 mmol/L (8-16); Blood Urea Nitrogen 38 mg/dL (9-20); Calcium 8.6 mg/dL (8.4-10.2); Carbon Dioxide 30 mmol/L (22-30); Chloride 93 mmol/L (98-107); Estimated CRCL calculation 43 ml/min; Estimated Glomerular Filt Rate 50; Glucose 93 mg/dL (65-110); Magnesium 2.1 mg/dL (1.6-2.3); Phosphorus 3.7 mg/dL (2.5-4.5); Potassium 4.1 mmol/L (3.4-5.0); Sodium 128 mmol/L (137-145)
--- NOTE | 2021-11-22 08:21 | PM.PNCARD ---
Progress Note: A&P Assessment and Plan (1) CHF (congestive heart failure): Qualifiers: Heart failure chronicity: unspecified Heart failure type: unspecified Qualified Code(s): I50.9 - Heart failure, unspecified Code(s): I50.9 - Heart failure, unspecified Status: Acute Assessment and Plan: Severe ischemic cardiomyopathy, EF 15%. Presents in decompensated heart failure. Improving with addition of inotrope to augment diuresis Continue low dose Dobutamine at 2.5mcg/kg/min Continue IV lasix 40mg b.i.d Will give metolazone 2.5mg x1 with evening dose of lasix 1.8L fluid restriction ELLIOTT hose Daily standing weight Closely monitor renal function and electrolytes with daily BMP Referral to the Advanced Heart Failure clinic has been initiated for consideration of advanced heart failure therapies. (2) CAD (coronary artery disease): Code(s): I25.10 - Atherosclerotic heart disease of [place] coronary artery without angina pectoris Status: Acute Assessment and Plan: Continue plavix, statin (3) PAD (peripheral artery disease): Code(s): I73.9 - Peripheral vascular disease, unspecified Status: Acute Assessment and Plan: Continue plavix, statin Subjective Date/time seen: 11/22/21 08:21 Interval history: Follow-up visit in this 76-year-old man with: Profound ischemic cardiomyopathy despite appropriate medical therapy and Bi V ICD he presents with significant decompensation with volume overload. Feeling better following paracentesis of 1800 cc yesterday. Still has moderate lower extremity edema. Sitting in the chair at the bedside otherwise essentially comfortable Date of service 11/22/2021: Feels okay this morning - didn't sleep well last night because he was up frequently to urinate. He is diuresing well. Still has significant LE edema but improving. No chest pain, palpitations. Has BEAR Exam Const: General: comfortable and no acute distress Other: Elderly gentleman lying comfortably in bed in no distress HENMT: Mouth: Yes moist mucous membranes Eyes: Sclera: sclerae normal Pupils: Equal, round and reactive pupils present Neck: Neck: supple Carotids: no bruits Resp: Effort & Inspection: normal respiratory effort Auscultation: rales (bases) bilateral Cardio: Jugular venous distension: JVD Rate: regular rate Rhythm: regular rhythm GI: Auscultation: normal bowel sounds Skin: General skin exam: normal color Neuro: Cranial nerves: Yes Equal, round and reactive pupils present Other: Normal cognition Extrem: Other: 2 to 3+ soft pitting edema up to the knees Objective Data Vital Signs Vital Signs: Vital Signs - 24 hr 11/21/21 09:14 11/21/21 10:14 11/21/21 10:00 Temperature Pulse Rate 75 70 72 Respiratory Rate Blood Pressure Pulse Oximetry Oxygen Delivery Fraction of Inspired Oxygen 11/21/21 09:10 11/21/21 12:00 11/21/21 12:35 Temperature 36.2 C L Pulse Rate 70 Respiratory Rate 18 Blood Pressure 113/64 Pulse Oximetry 98 Oxygen Delivery Room Air Room Air Fraction of Inspired Oxygen 11/21/21 12:00 11/21/21 14:00 11/21/21 16:06 Temperature Pulse Rate 71 76 71 Respiratory Rate Blood Pressure Pulse Oximetry Oxygen Delivery Fraction of Inspired Oxygen 11/21/21 16:00 11/21/21 16:00 11/21/21 16:00 Temperature 36.1 C L Pulse Rate 72 79 Respiratory Rate 18 Blood Pressure 105/67 Pulse Oximetry 98 Oxygen Delivery Room Air Fraction of Inspired Oxygen 11/21/21 20:00 11/21/21 20:25 11/21/21 20:00 Temperature 37.1 C Pulse Rate 75 73 83 Respiratory Rate 16 Blood Pressure 103/83 Pulse Oximetry 100 Oxygen Delivery Fraction of Inspired Oxygen 11/21/21 20:00 11/21/21 21:16 11/21/21 22:54 Temperature Pulse Rate 83 80 73 Respiratory Rate 16 Blood Pressure Pulse Oximetry 100 92 Oxygen Delivery Room Air Room Air Fract
[2021-11-22] MEDS: SPIRONOLACTONE 25 MG TABLET PO (08:45)
[2021-11-22] MEDS: carvediloL 6.25 MG TABLET PO ×2 (08:45→20:18)
[2021-11-22] MEDS: SACUBITRIL/VALSARTAN 24-26 MG TABLET 1 TAB PO ×2 (08:46→20:18)
[2021-11-22] MEDS: FUROSEMIDE INJ 40 MG/4 ML VIAL IV PUSH ×2 (08:46→21:15)
[2021-11-22] MEDS: ENOXAPARIN 40 MG/0.4 ML SYRINGE SUB-Q (08:46)
[2021-11-22] MEDS: PANTOPRAZOLE 40 MG TABLET PO (08:46)
[2021-11-22] MEDS: EMPAGLIFLOZIN 10 MG TABLET PO (08:46)
--- NOTE | 2021-11-22 10:34 | PM.IMPN ---
Progress Note: A&P Assessment and Plan (1) CHF (congestive heart failure): Qualifiers: Heart failure chronicity: unspecified Heart failure type: unspecified Qualified Code(s): I50.9 - Heart failure, unspecified Code(s): I50.9 - Heart failure, unspecified Status: Acute Assessment and Plan: Patient with Acute on Chronic Systolic and Diastolic CHF exacerbation with a component of right sided failure. Patient presents with weakness, abdominal bloating leg edema consistent with fluid overload.? Chest x-ray showing increasing right pleural effusion and cardiomegaly.? CT of the chest, abdomen pelvis was performed which did have some limitations showing small bilateral pleural effusions and ascites.? BNP was 23K.? Troponin negative x3.? EKG showed paced rhythm.? Echocardiogram showed severe LV enlargement with severe global LV systolic dysfunction and EF of less than 15% as well as abnormal diastolic function.? He also has RV enlargement with right ventricular systolic dysfunction and severe biatrial enlargement.? Mild valvular disease as well as moderate TR and moderate pulmonary hypertension.? Patient on admission was on spironolactone, Entresto, Lasix, dapagliflozin and Coreg.? Patient was started on IV diuretics with good UOP and negative fluid balance (-4.8L thus far). He is having clinical improvement. Cr up to 1.4 but stable. Na better at 128. Monitor renal function closely given the high risk for cardiorenal syndrome. Continue Dobutamine. Continue to monitor. Appreciate Cardiology input. (2) Anasarca: Code(s): R60.1 - Generalized edema Status: Acute Assessment and Plan: Patient with anasarca and ascites related to CHF. Renal functions normal so doubt related kidney issues. Liver appears normal on imaging and Albumin 3.2 so felt unlikely that his anasarca is related to liver failure. Paracentesis was performed 11/20 showing cloudy fluid but only 72 WBC. Peritoneal fluid pathology negative for malignancy.? Blood cultures no growth to date.? Peritoneal fluid culture NGTD. Continue current diuresis.? Monitor closely. Abx remain on hold. (3) AAA (abdominal aortic aneurysm): Code(s): I71.4 - Abdominal aortic aneurysm, without rupture Status: Inactive Assessment and Plan: CT of the chest on admission shows a 4.7 cm fusiform ascending thoracic aortic aneurysm.? Given the severity of his cardiac condition however, it is unlikely that this will be repaired given the high risk.? Blood pressure remains well controlled. 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 Also of note is the aortobifemoral graft but patency was not assessed with this imaging study. 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 Surgical referral was recommended but patient is being followed by Cardiology. He may be able to undergo stent placement in the future but will defer to Cardiology. Continue Plavix and Zocor. (5) CAD (coronary artery disease): Code(s): I25.10 - Atherosclerotic heart disease of [place] coronary artery without angina pectoris Status: Acute Assessment and Plan: Stable.? Most recent Lexiscan was in 2019 showed no reversible ischemia did have fixed inferior defect and his EF was 26%.? He has a history of [place] 1998 with another one at some later but not certain time.? Underwent 2 vessel CABG in 1998 with MIXON to the LAD and a vein graft to the occluded RCA.? He did have severe LV dysfunction at that time but it improved. unclear if ischemia is contributing to his worsening EF this admission but troponin is negative
[2021-11-22 11:25] LABS: Anion Gap 7 mmol/L (8-16); Blood Urea Nitrogen 37 mg/dL (9-20); Calcium 8.8 mg/dL (8.4-10.2); Carbon Dioxide 31 mmol/L (22-30); Chloride 91 mmol/L (98-107); Estimated CRCL calculation 40 ml/min; Estimated Glomerular Filt Rate 46; Glucose 139 mg/dL (65-110); Potassium 4.2 mmol/L (3.4-5.0); Sodium 129 mmol/L (137-145)
[2021-11-22] MEDS: CLOPIDOGREL BISULFATE 75 MG TABLET PO (20:17)
[2021-11-22] MEDS: metOLazone 2.5 MG TABLET PO (20:17)
[2021-11-22] MEDS: SIMVASTATIN 20 MG TABLET PO (20:18)
[2021-11-23] VITALS (18 sets, daily range): BP systolic 100–136; BP diastolic 57–98; PULSE 55–79; RESP 16–20; TEMP 36.1–36.8; O2SAT 94–100
[2021-11-23 04:55] LABS: Hematocrit 32.5 % (42.0-52.0); Hemoglobin 11.1 g/dL (14.0-18.0); Immature Platelet Fraction Pct 4.9 % (0.9-11.2); Mean Corpuscular HGB Conc 34.2 g/dl (32-36); Mean Corpuscular Hemoglobin 35.4 pg (26-34); Mean Corpuscular Volume 103.5 fl (80-100); Mean Platelet Volume 10.1 fl (7.4-10.4); Platelet Count Result 153 k/mm3 (150-375); Red Blood Count 3.14 M/mm3 (4.6-6.20); Red Cell Distribution Width 15.6 % (11.5-14.5); White Blood Count 5.3 K/mm3 (4.5-10.0)
[2021-11-23 05:06] LABS: Alanine Aminotransferase 19 U/L (6-50); Albumin Level 3.4 g/dL (3.5-5.1); Alkaline Phosphatase 99 U/L (38-126); Aspartate Amino Transferase 37 U/L (17-59); Bilirubin,Total 1.4 mg/dL (0.2-1.3); Magnesium 2.1 mg/dL (1.6-2.3)
[2021-11-23 07:03] LABS: Anion Gap 6 mmol/L (8-16); Blood Urea Nitrogen 41 mg/dL (9-20); Calcium 8.9 mg/dL (8.4-10.2); Carbon Dioxide 31 mmol/L (22-30); Chloride 89 mmol/L (98-107); Estimated CRCL calculation 38 ml/min; Estimated Glomerular Filt Rate 42; Glucose 100 mg/dL (65-110); Sodium 126 mmol/L (137-145)
--- NOTE | 2021-11-23 08:13 | PM.IMPN ---
Progress Note: A&P Assessment and Plan (1) CHF (congestive heart failure): Qualifiers: Heart failure chronicity: unspecified Heart failure type: unspecified Qualified Code(s): I50.9 - Heart failure, unspecified Code(s): I50.9 - Heart failure, unspecified Status: Acute Assessment and Plan: Patient with Acute on Chronic Systolic and Diastolic CHF exacerbation with a component of right sided failure. Patient presents with weakness, abdominal bloating leg edema consistent with fluid overload.? Chest x-ray showing increasing right pleural effusion and cardiomegaly.?CT of the chest, abdomen pelvis was performed with contrast which did have some limitations showing small bilateral pleural effusions and ascites.?BNP was 23K.?Troponin negative x3.? EKG showed paced rhythm.? Echo showed severe LV enlargement with severe global LV systolic dysfunction and EF of less than 15% as well as abnormal diastolic function.? He also has RV enlargement with right ventricular systolic dysfunction and severe biatrial enlargement.? Mild valvular disease as well as moderate TR and moderate pulmonary hypertension.? Patient on admission was on spironolactone, Entresto, Lasix, dapagliflozin and Coreg.? Patient was started on IV diuretics with good UOP. Metolazone added x 2 doses with excellent response. Negative fluid balance -7.6L thus far. He is having clinical improvement. Cr up to 1.6 and Na down again to 126 but not unexpected given the severity of his heart condition. Monitor renal function closely given the high risk for cardiorenal syndrome. Continue Dobutamine. Continue to monitor. Appreciate Cardiology input. (2) MORAIMA (acute kidney injury): Code(s): N17.9 - Acute kidney failure, unspecified Status: Acute Assessment and Plan: As above. Cr up to 1.6 related to diuresis and poor EF. Not unexpected as he is diuresed. Follow closely. (3) Hyponatremia: Code(s): E87.1 - Hypo-osmolality and hyponatremia Status: Acute Assessment and Plan: Patient with chronic hyponatremia. Na low on admission at 131 felt related to poor renal perfusion from his poor EF. Na dropped to 126 related to above. Follow for now. (4) Anasarca: Code(s): R60.1 - Generalized edema Status: Acute Assessment and Plan: Patient with anasarca and ascites related to CHF. Renal functions normal so doubt related kidney issues. Liver appears normal on imaging and Albumin 3.2 so felt unlikely related to liver failure. Paracentesis was performed 11/20 showing cloudy fluid but only 72 WBC. Peritoneal fluid pathology negative for malignancy.? Blood cultures no growth to date.? Peritoneal fluid culture NGTD. Continue current diuresis.? Monitor closely. (5) AAA (abdominal aortic aneurysm): Code(s): I71.4 - Abdominal aortic aneurysm, without rupture Status: Inactive Assessment and Plan: CT of the chest on admission shows a 4.7 cm fusiform ascending thoracic aortic aneurysm.? Given the severity of his cardiac condition however, it is unlikely that this will be repaired given the high risk.? Blood pressure remains well controlled. 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 Also of note is the aortobifemoral graft but patency was not assessed with this imaging study. 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 Surgical referral was recommended but patient is being followed by Cardiology. He may be able to undergo stent placement in the future but will defer to Cardiology. Continue Plavix and Zocor. (7) CAD (coronary artery disea
[2021-11-23] MEDS: SACUBITRIL/VALSARTAN 24-26 MG TABLET 1 TAB PO ×2 (09:07→21:34)
[2021-11-23] MEDS: ENOXAPARIN 40 MG/0.4 ML SYRINGE SUB-Q (09:07)
[2021-11-23] MEDS: carvediloL 6.25 MG TABLET PO ×2 (09:07→21:34)
[2021-11-23] MEDS: FUROSEMIDE INJ 40 MG/4 ML VIAL IV PUSH ×2 (09:07→21:34)
[2021-11-23] MEDS: EMPAGLIFLOZIN 10 MG TABLET PO (09:07)
[2021-11-23] MEDS: PANTOPRAZOLE 40 MG TABLET PO (09:08)
[2021-11-23] MEDS: SPIRONOLACTONE 25 MG TABLET PO (09:08)
[2021-11-23 15:48] LABS: Glucose Peritoneal Fluid 96 mg/dL; LDH Peritoneal Fluid 91 U/L (<63); Total Protein Peritoneal Fluid 3.6 g/dL
--- NOTE | 2021-11-23 16:47 | PM.PNCARD ---
Progress Note: A&P Assessment and Plan (1) CHF (congestive heart failure): Qualifiers: Heart failure chronicity: unspecified Heart failure type: unspecified Qualified Code(s): I50.9 - Heart failure, unspecified Code(s): I50.9 - Heart failure, unspecified Status: Acute Plan Patient is nearing a state of volume optimization. Will plan on stopping the dobutamine infusion tomorrow morning and consider discharge in the next 24-48 hours. The heart failure center at [place] has contacted him for short interval referral there was a new patient to consider advanced support measures. Elmer Stark MD [facility] Subjective Date/time seen: Date of service: 11/23/21 16:47 Interval history: Follow-up visit in this 76-year-old man with severe ischemic cardiomyopathy despite good medical therapy presented with decompensated volume overload/CHF. Patient has been responding very well to IV furosemide in combination with low-dose dobutamine. Continues to feel better day by day still noticing some lower extremity edema also treating that with compression hose. I 0 continues to be significantly negative more than 5 L in the last 24 hours Exam Const: General: comfortable and no acute distress Other: Patient ambulating in his room with his dobutamine infusion does not appear to be in any distress at all offers no other complaints HENMT: Mouth: Yes moist mucous membranes Eyes: Sclera: sclerae normal Pupils: Equal, round and reactive pupils present Neck: Neck: supple Other: Jugular veins are no longer distended Resp: Effort & Inspection: normal respiratory effort Other: Breath sounds are largely clear they may be a few scant crackles remaining Cardio: Rate: regular rate Rhythm: regular rhythm Other: Paced rhythm GI: GI Palp: Yes Soft to palpation Auscultation: normal bowel sounds Neuro: Other: Normal cognition Extrem: Other: Mild bilateral edema persists Objective Data Vital Signs Vital Signs: Vital Signs - 24 hr 11/22/21 18:00 11/22/21 20:00 11/22/21 20:18 Temperature 36.3 C L Pulse Rate 82 71 72 Respiratory Rate 16 Blood Pressure 124/73 Pulse Oximetry 100 Oxygen Delivery Fraction of Inspired Oxygen 11/22/21 20:00 11/22/21 20:00 11/22/21 21:51 Temperature Pulse Rate 74 74 72 Respiratory Rate 16 Blood Pressure Pulse Oximetry 100 Oxygen Delivery Room Air Fraction of Inspired Oxygen 11/22/21 23:21 11/22/21 23:42 11/22/21 23:42 Temperature Pulse Rate 72 71 72 Respiratory Rate 16 Blood Pressure Pulse Oximetry 100 Oxygen Delivery CPAP Fraction of Inspired Oxygen 11/23/21 00:00 11/23/21 01:58 11/23/21 04:00 Temperature 36.4 C Pulse Rate 70 72 70 Respiratory Rate 16 Blood Pressure 107/67 Pulse Oximetry 99 Oxygen Delivery Fraction of Inspired Oxygen 11/23/21 04:00 11/23/21 04:00 11/23/21 05:36 Temperature 36.2 C L Pulse Rate 70 68 76 Respiratory Rate 16 16 Blood Pressure 100/64 Pulse Oximetry 99 100 Oxygen Delivery CPAP Fraction of Inspired Oxygen 11/23/21 08:00 11/23/21 09:07 11/23/21 08:00 Temperature 36.1 C L Pulse Rate 55 L 73 71 Respiratory Rate 16 Blood Pressure 105/57 L Pulse Oximetry 94 Oxygen Delivery Fraction of Inspired Oxygen 11/23/21 10:00 11/23/21 08:00 11/23/21 12:00 Temperature 36.3 C L Pulse Rate 77 79 Respiratory Rate 18 Blood Pressure 105/71 Pulse Oximetry 100 Oxygen Delivery Room Air Fraction of Inspired Oxygen 11/23/21 12:00 11/23/21 14:00 11/23/21 12:00 Temperature Pulse Rate 74 74 Respiratory Rate Blood Pressure Pulse Oximetry Oxygen Delivery Room Air Fraction of Inspired Oxygen 11/23/21 16:00 Temperature 36.1 C L Pulse Rate 71 Respiratory Rate 20 Blood Pressure 105/65 Pulse Oximetry 100 Oxygen Delivery Fraction of Inspired Oxygen Intake/Output Intake/Output: Intake
[2021-11-23] MEDS: DOBUTamine 250 MG/D5W 250 ML 250 MG/250 ML BAG 12.21 MG IV CONT (16:53)
[2021-11-23] MEDS: CLOPIDOGREL BISULFATE 75 MG TABLET PO (21:34)
[2021-11-23] MEDS: SIMVASTATIN 20 MG TABLET PO (21:34)
[2021-11-24] VITALS (18 sets, daily range): BP systolic 75–113; BP diastolic 51–76; PULSE 69–80; RESP 18–20; TEMP 35.5–36.6; O2SAT 87–100
[2021-11-24 05:16] LABS: Anion Gap 4 mmol/L (8-16); Blood Urea Nitrogen 47 mg/dL (9-20); Calcium 9.1 mg/dL (8.4-10.2); Carbon Dioxide 35 mmol/L (22-30); Chloride 85 mmol/L (98-107); Estimated CRCL calculation 40 ml/min; Estimated Glomerular Filt Rate 46; Glucose 102 mg/dL (65-110); Potassium 4.1 mmol/L (3.4-5.0); Sodium 124 mmol/L (137-145)
[2021-11-24] MEDS: PANTOPRAZOLE 40 MG TABLET PO (08:35)
[2021-11-24] MEDS: SACUBITRIL/VALSARTAN 24-26 MG TABLET 1 TAB PO ×2 (08:37→20:32)
[2021-11-24] MEDS: EMPAGLIFLOZIN 10 MG TABLET PO (08:37)
[2021-11-24] MEDS: TIZANIDINE HCL 4 MG TABLET PO (08:37)
[2021-11-24] MEDS: SPIRONOLACTONE 25 MG TABLET PO (08:37)
[2021-11-24] MEDS: ENOXAPARIN 40 MG/0.4 ML SYRINGE SUB-Q (08:38)
[2021-11-24] MEDS: carvediloL 6.25 MG TABLET PO ×2 (08:38→20:32)
[2021-11-24] MEDS: FUROSEMIDE INJ 40 MG/4 ML VIAL IV PUSH ×2 (08:38→17:31)
--- NOTE | 2021-11-24 11:25 | PM.IMPN ---
Progress Note: A&P Assessment and Plan (1) CHF (congestive heart failure): Qualifiers: Heart failure chronicity: acute on chronic Heart failure type: systolic Qualified Code(s): I50.23 - Acute on chronic systolic (congestive) heart failure Code(s): I50.9 - Heart failure, unspecified Status: Acute Assessment and Plan: Patient with Acute on Chronic Systolic and Diastolic CHF exacerbation with a component of right sided failure. Patient presents with weakness, abdominal bloating leg edema consistent with fluid overload.? Chest x-ray showing increasing right pleural effusion and cardiomegaly.?CT of the chest, abdomen pelvis was performed with contrast which did have some limitations showing small bilateral pleural effusions and ascites.?BNP was 23K.?Troponin negative x3.? EKG showed paced rhythm.? Echo showed severe LV enlargement with severe global LV systolic dysfunction and EF of less than 15% as well as abnormal diastolic function.? He also has RV enlargement with right ventricular systolic dysfunction and severe biatrial enlargement.? Mild valvular disease as well as moderate TR and moderate pulmonary hypertension.? Patient on admission was on spironolactone, Entresto, Lasix, dapagliflozin and Coreg.? Patient was started on IV diuretics with good UOP. Metolazone added x 2 doses with excellent response. Negative fluid balance -7.6L thus far. He is having clinical improvement. Cr up to 1.6 and Na down again to 126 but not unexpected given the severity of his heart condition. Monitor renal function closely given the high risk for cardiorenal syndrome. Continue Dobutamine. Continue to monitor. Appreciate Cardiology input. (2) MORAIMA (acute kidney injury): Code(s): N17.9 - Acute kidney failure, unspecified Status: Acute Assessment and Plan: As above. Cr up to 1.6 related to diuresis and poor EF. Not unexpected as he is diuresed. Follow closely. (3) Hyponatremia: Code(s): E87.1 - Hypo-osmolality and hyponatremia Status: Acute Assessment and Plan: Patient with chronic hyponatremia. Na low on admission at 131 felt related to poor renal perfusion from his poor EF. Na dropped to 126 related to above. Follow for now. (4) Anasarca: Code(s): R60.1 - Generalized edema Status: Acute Assessment and Plan: Patient with anasarca and ascites related to CHF. Renal functions normal so doubt related kidney issues. Liver appears normal on imaging and Albumin 3.2 so felt unlikely related to liver failure. Paracentesis was performed 11/20 showing cloudy fluid but only 72 WBC. Peritoneal fluid pathology negative for malignancy.? Blood cultures no growth to date.? Peritoneal fluid culture NGTD. Continue current diuresis.? Monitor closely. (5) AAA (abdominal aortic aneurysm): Code(s): I71.4 - Abdominal aortic aneurysm, without rupture Status: Inactive Assessment and Plan: CT of the chest on admission shows a 4.7 cm fusiform ascending thoracic aortic aneurysm.? Given the severity of his cardiac condition however, it is unlikely that this will be repaired given the high risk.? Blood pressure remains well controlled. 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 Also of note is the aortobifemoral graft but patency was not assessed with this imaging study. 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 Surgical referral was recommended but patient is being followed by Cardiology. He may be able to undergo stent placement in the future but will defer to Cardiology. Continue Plavix and Zocor. (
[2021-11-24 12:36] LABS: Albumin Peritoneal Fluid 2.1 g/dL
--- NOTE | 2021-11-24 14:54 | PM.PNCARD ---
Progress Note: A&P Assessment and Plan (1) CHF (congestive heart failure): Qualifiers: Heart failure chronicity: acute on chronic Heart failure type: systolic Qualified Code(s): I50.23 - Acute on chronic systolic (congestive) heart failure Code(s): I50.9 - Heart failure, unspecified Status: Acute Assessment and Plan: Discontinue dobutamine. Monitor volume status closely. Continue accurate input and output, daily weight. Continue IV Lasix. Move evening Lasix to approximately 3:00 p.m. in order to allow patient less interrupted sleep. Discussed implication if volume status worsens off dobutamine. Outpatient referral to Heart failure Clinic at [place]. Severe LV systolic dysfunction. Continue spironolactone, carvedilol, Jardiance, Entresto. Remains on clopidogrel. DVT prophylaxis. Thus far he is -14.3 L very nice response thus far. Discussed at length plan of care. Patient verbalized understanding and agreed. (2) PAD (peripheral artery disease): Code(s): I73.9 - Peripheral vascular disease, unspecified Status: Acute Assessment and Plan: Stable, denies claudication. Continue medical therapy. (3) CAD (coronary artery disease): Qualifiers: Coronary Disease-Associated Artery/Lesion type: [place] artery [place] vs. transplanted heart: [place] heart Associated angina: without angina Qualified Code(s): I25.10 - Atherosclerotic heart disease of [place] coronary artery without angina pectoris Code(s): I25.10 - Atherosclerotic heart disease of [place] coronary artery without angina pectoris Status: Acute Assessment and Plan: No angina. Continue medical therapy. Statin, clopidogrel for (4) Chronic kidney disease, stage 3: Code(s): N18.30 - Chronic kidney disease, stage 3 unspecified Status: Acute Assessment and Plan: Renal function stable. Monitor BMP. Will monitor response to diuretic therapy off dobutamine. Subjective Date/time seen: Date of service: 11/24/21 14:54 Interval history: Follow-up visit in this 76-year-old man with severe ischemic cardiomyopathy despite good medical therapy presented with decompensated volume overload/CHF. Patient has been responding very well to IV furosemide in combination with low-dose dobutamine. States he continues to feel better although notes fullness in his abdomen. Edema was better while lying down worse upright. Walking around much better without significant shortness of breath. Denies significant dizziness, chest pain. Still making good urine. Complained about receiving Lasix late at night making it very difficult to sleep. Review of Systems Review of Systems: All systems reviewed & are unremarkable except as noted in HPI and below Constitutional: Constitutional: Reports as per HPI and Reports no additional constitutional complaints Comments: No fevers, chills, palpitations chest pain. Eyes: Eyes: Reports as per HPI and Reports no additional eye complaints ENT: Reports system reviewed and no additional complaints, except as documented and Reports as per HPI Cardiovascular: Cardiovascular: Reports as per HPI and Reports no additional cardiovascular complaints Respiratory: Respiratory: Reports as per HPI and Reports no additional respiratory complaints Gastrointestinal: Gastrointestinal: Reports as per HPI and Reports no additional gastrointestinal complaints Genitourinary: Genitourinary: Reports no additional male genitourinary complaints and Reports as per HPI Musculoskeletal: Musculoskeletal: Reports no additional musculoskeletal complaints and Reports as per HPI Integumentary/Breasts: Skin/Breast: Reports system reviewed and no additional complaints, except as docu and Reports as per HPI Neurologic: Reports system reviewed and no additional complaints, except as documented and Reports as per HPI Psychiatric: Psychiatric: Reports no additional psychiatric complaints and Re
[2021-11-24] MEDS: CLOPIDOGREL BISULFATE 75 MG TABLET PO (20:32)
[2021-11-24] MEDS: SIMVASTATIN 20 MG TABLET PO (20:32)
[2021-11-25] VITALS (9 sets, daily range): BP systolic 018–106; BP diastolic 64–73; PULSE 70–92; RESP 16–18; TEMP 36.3–36.6; O2SAT 90
[2021-11-25 07:45] LABS: Anion Gap 3 mmol/L (8-16); Blood Urea Nitrogen 44 mg/dL (9-20); Carbon Dioxide 36 mmol/L (22-30); Chloride 85 mmol/L (98-107); Estimated CRCL calculation 43 ml/min; Estimated Glomerular Filt Rate 50; Glucose 87 mg/dL (65-110); Sodium 124 mmol/L (137-145)
[2021-11-25] MEDS: SPIRONOLACTONE 25 MG TABLET PO (09:00)
[2021-11-25] MEDS: SACUBITRIL/VALSARTAN 24-26 MG TABLET 1 TAB PO ×2 (09:00→20:32)
[2021-11-25] MEDS: EMPAGLIFLOZIN 10 MG TABLET PO (09:00)
[2021-11-25] MEDS: ENOXAPARIN 40 MG/0.4 ML SYRINGE SUB-Q (09:00)
[2021-11-25] MEDS: PANTOPRAZOLE 40 MG TABLET PO (09:01)
[2021-11-25] MEDS: carvediloL 6.25 MG TABLET PO ×2 (09:01→20:32)
[2021-11-25] MEDS: FUROSEMIDE INJ 40 MG/4 ML VIAL IV PUSH ×2 (09:04→17:38)
--- NOTE | 2021-11-25 09:10 | P.PNIM_ITS ---
Progress Note: A&P Assessment and Plan (1) CHF (congestive heart failure): Qualifiers: Heart failure chronicity: acute on chronic Heart failure type: systolic Qualified Code(s): I50.23 - Acute on chronic systolic (congestive) heart failure Code(s): I50.9 - Heart failure, unspecified Status: Acute Assessment and Plan: Patient with Acute on Chronic Systolic and Diastolic CHF exacerbation with a component of right sided failure. Patient presents with weakness, abdominal bloating leg edema consistent with fluid overload.? Chest x-ray showing increasing right pleural effusion and cardiomegaly.?CT of the chest, abdomen pelvis was performed with contrast which did have some limitations showing small bilateral pleural effusions and ascites.?BNP was 23K.?Troponin negative x3.? EKG showed paced rhythm.? Echo showed severe LV enlargement with severe global LV systolic dysfunction and EF of less than 15% as well as abnormal diastolic function.? He also has RV enlargement with right ventricular systolic dysfunction and severe biatrial enlargement.? Mild valvular disease as well as moderate TR and moderate pulmonary hypertension.? Patient on admission was on spironolactone, Entresto, Lasix, dapagliflozin and Coreg.? Patient was started on IV diuretics with good UOP. Metolazone added x 2 doses with excellent response. Negative fluid balance -7.6L thus far. He is having clinical improvement. Cr up to 1.6 and Na down again to 126 but not unexpected given the severity of his heart condition. Monitor renal function closely given the high risk for cardiorenal syndrome. Continue Dobutamine. Continue to monitor. Appreciate Cardiology input. (2) MORAIMA (acute kidney injury): Code(s): N17.9 - Acute kidney failure, unspecified Status: Acute Assessment and Plan: As above. Cr up to 1.6 related to diuresis and poor EF. Not unexpected as he is diuresed. Follow closely. (3) Hyponatremia: Code(s): E87.1 - Hypo-osmolality and hyponatremia Status: Acute Assessment and Plan: Patient with chronic hyponatremia. Na low on admission at 131 felt related to poor renal perfusion from his poor EF. Na dropped to 126 related to above. Follow for now. (4) Anasarca: Code(s): R60.1 - Generalized edema Status: Acute Assessment and Plan: Patient with anasarca and ascites related to CHF. Renal functions normal so doubt related kidney issues. Liver appears normal on imaging and Albumin 3.2 so felt unlikely related to liver failure. Paracentesis was performed 11/20 showing cloudy fluid but only 72 WBC. Peritoneal fluid pathology negative for malignancy.? Blood cultures no growth to date.? Peritoneal fluid culture NGTD. Continue current diuresis.? Monitor closely. (5) AAA (abdominal aortic aneurysm): Code(s): I71.4 - Abdominal aortic aneurysm, without rupture Status: Inactive Assessment and Plan: CT of the chest on admission shows a 4.7 cm fusiform ascending thoracic aortic aneurysm.? Given the severity of his cardiac condition however, it is unlikely that this will be repaired given the high risk.? Blood pressure remains well controlled. 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 Also of note is the aortobifemoral graft but patency was not
--- NOTE | 2021-11-25 13:37 | PM.PNCARD ---
Progress Note: A&P Assessment and Plan (1) CHF (congestive heart failure): Qualifiers: Heart failure chronicity: acute on chronic Heart failure type: systolic Qualified Code(s): I50.23 - Acute on chronic systolic (congestive) heart failure Code(s): I50.9 - Heart failure, unspecified Status: Acute Assessment and Plan: Doing well dobutamine thus far. Monitor volume status closely. Continue accurate input and output, daily weight. Discontinue IV Lasix after this evening's dose, transition to Lasix 80 mg p.o. b.i.d. starting tomorrow morning. Monitor tolerance. Outpatient referral to Heart failure Clinic at [place]. Severe LV systolic dysfunction. He remains on a good medical regimen including spironolactone, carvedilol, Jardiance, Entresto. DVT prophylaxis. Thus far he is >-15 L. Discussed at length plan of care. Patient verbalized understanding and agreed. Discussed metolazone is suboptimal response with oral Lasix. Bumex or torsemide off remain alternatives. Reassess volume status in a.m.. Anticipate discharge within the next 24 hours. Check BMP in a.m.. (2) Ischemic cardiomyopathy: Code(s): I25.5 - Ischemic cardiomyopathy Status: Acute Assessment and Plan: Severe LV systolic dysfunction EF 50%, status post biventricular ICD. Ventricular paced rhythm. (3) CAD (coronary artery disease): Qualifiers: Coronary Disease-Associated Artery/Lesion type: [place] artery [place] vs. transplanted heart: [place] heart Associated angina: without angina Qualified Code(s): I25.10 - Atherosclerotic heart disease of [place] coronary artery without angina pectoris Code(s): I25.10 - Atherosclerotic heart disease of [place] coronary artery without angina pectoris Status: Acute Assessment and Plan: No angina. Continue medical therapy. Statin, clopidogrel. (4) PAD (peripheral artery disease): Code(s): I73.9 - Peripheral vascular disease, unspecified Status: Acute Assessment and Plan: Stable, denies claudication. Continue medical therapy. (5) Chronic kidney disease, stage 3: Code(s): N18.30 - Chronic kidney disease, stage 3 unspecified Status: Acute Assessment and Plan: Renal function stable. Monitor BMP. Will monitor response to diuretic therapy off dobutamine. Subjective Date/time seen: Date of service: 11/25/21 10:37 Follow-up for CHF, cardiomyopathy Interval history: Follow-up visit in this 76-year-old man with severe ischemic cardiomyopathy despite good medical therapy presented with decompensated volume overload/CHF. Patient has been responding very well to IV furosemide in combination with low-dose dobutamine. Feels fairly well. Edema improved, abdomen LEs full. Ambulating with slightly less short of breath doing fairly well walk around on the floor. No dizziness lightheadedness. No chest pain. Dobutamine stopped yesterday. Telemetry Ventricular paced. Slept much better overnight less urination as his Lasix was given earlier in the afternoon which he greatly appreciated. Review of Systems Review of Systems: All systems reviewed & are unremarkable except as noted in HPI and below Constitutional: Constitutional: Reports as per HPI and Reports no additional constitutional complaints Eyes: Eyes: Reports as per HPI and Reports no additional eye complaints ENT: Reports system reviewed and no additional complaints, except as documented and Reports as per HPI Cardiovascular: Cardiovascular: Reports as per HPI and Reports no additional cardiovascular complaints Respiratory: Respiratory: Reports as per HPI and Reports no additional respiratory complaints Gastrointestinal: Gastrointestinal: Reports as per HPI and Reports no additional gastrointestinal complaints Genitourinary: Genitourinary: Reports no additional male genitourinary complaints and Reports as per HPI Musculoskeletal: Musculoskeletal:
--- NOTE | 2021-11-25 13:38 | PM.CNNEP ---
Assessment and Plan Assessment and plan (1) MORAIMA (acute kidney injury): Code(s): N17.9 - Acute kidney failure, unspecified Status: Acute Assessment and Plan: likely due to the necessity diuresis/IV diuretics suspect a possible component of cardiorenal syndrome decreased perfusion to kidneys due to depressed EF leading to chronic prerenal azotemia worsened by the necessity of diuretic therapy to maintain/achieve euvolemia I wonder if his admission creatinine of 1.1 - 1.2mg/dl are dilutional values and his current creatinine is his true creatinine when he is close to optimal volume status follow trend of repeat labs and UOP (2) Hyponatremia: Code(s): E87.1 - Hypo-osmolality and hyponatremia Status: Acute Assessment and Plan: acute on chronic seems to run 127 - 131mmol/L at best since at least 2019 probably a manifestation of his fluctuating volume status in relation to his CHF and need for diuresis HOWEVER, his previous dobutamine gtt was using D5W as a carrier fluid which might explain his drop in sodium as well could add salt tabs but hesitant to do so given #3 (3) Acute on chronic systolic CHF (congestive heart failure), NYHA class 4: Code(s): I50.23 - Acute on chronic systolic (congestive) heart failure Status: Acute Assessment and Plan: clinical improvement noted with interventions to date off inontropic support transitioning to oral diuretics tomorrow remains on entresto, spironolactone, and jardiance Cardiology following (4) Anasarca: Code(s): R60.1 - Generalized edema Status: Acute Assessment and Plan: due to #3 doing better with current interventions (dobutamine gtt, IV diuretics, paracentesis...etc) follow volume status I suspect it may take a few days for his sodium level to even out following this hospitalization requiring IV diuretics and multiple medication adjustments and interventions to try and optimize his volume status. Assuming his sodium level stays stable tomorrow, I would not be opposed discharge assuming he has close follow-up and repeat labs done in the next few days to ensure his sodium level remains stable if not improves. Will continue to follow. History of Present Illness Reason for Consult Consult date: 11/25/21 Reason for consult: acute renal failure and hyponatremia Chief Complaint Chief complaint: CHF, Anasarca History of Present Illness Narrative: The patient is a 76-year-old male with extensive past medical history as outlined below who presented to [facility] Emergency room several days ago due to shortness of breath. The shortness of breath initially started with exertional activities but slowly progressed to the point where it was quite noticeable even at rest. Associated symptoms included paroxysmal nocturnal dyspnea, orthopnea, increase in lower extremity edema and increased abdominal girth all of which have contributed to his shortness of breath as well as his general sense of being uncomfortable. He reported no chest pain, cough, fever, chills, rigors, dizziness, lightheadedness, or palpitations. Given these constellation of symptoms in conjunction with his known history, he presented to the hospital emergency room for further evaluation. Workup and testing done in the emergency room demonstrated an extremely elevated BNP, with routine blood tests demonstrating mild hyponatremia but otherwise no other significant findings. A CT scan of his abdomen pelvis demonstrated moderate ascites but no other acute intra-abdominal pathology. His chest x-ray also showed evidence of pulmonary vascular congestion and his physical exam was consistent with generalized anasarca. Given all these findings, it was felt that his volume overload status is secondary to a CHF exacerbation and he was subsequently admitted to the hospital for further treatment/intervention. Since his admission, he has
[2021-11-25] MEDS: SIMVASTATIN 20 MG TABLET PO (20:32)
[2021-11-25] MEDS: CLOPIDOGREL BISULFATE 75 MG TABLET PO (20:32)
[2021-11-26] VITALS (13 sets, daily range): BP systolic 106–108; BP diastolic 64–70; PULSE 70–97; RESP 15–16; TEMP 36.3–36.9; O2SAT 90–100
[2021-11-26 06:13] LABS: Alanine Aminotransferase 17 U/L (6-50); Albumin Level 3.6 g/dL (3.5-5.1); Alkaline Phosphatase 117 U/L (38-126); Anion Gap 7 mmol/L (8-16); Aspartate Amino Transferase 33 U/L (17-59); Bilirubin,Total 1.3 mg/dL (0.2-1.3); Blood Urea Nitrogen 43 mg/dL (9-20); Carbon Dioxide 32 mmol/L (22-30); Chloride 85 mmol/L (98-107); Estimated CRCL calculation 43 ml/min; Estimated Glomerular Filt Rate 50; Glucose 93 mg/dL (65-110); Potassium 3.9 mmol/L (3.4-5.0); Sodium 124 mmol/L (137-145)
[2021-11-26] MEDS: ENOXAPARIN 40 MG/0.4 ML SYRINGE SUB-Q (08:15)
[2021-11-26] MEDS: carvediloL 6.25 MG TABLET PO ×2 (08:16→20:37)
[2021-11-26] MEDS: PANTOPRAZOLE 40 MG TABLET PO (08:18)
[2021-11-26] MEDS: SPIRONOLACTONE 25 MG TABLET PO (08:18)
[2021-11-26] MEDS: FUROSEMIDE 80 MG TABLET PO ×2 (08:18→16:47)
[2021-11-26] MEDS: SACUBITRIL/VALSARTAN 24-26 MG TABLET 1 TAB PO ×2 (08:18→20:37)
[2021-11-26] MEDS: EMPAGLIFLOZIN 10 MG TABLET PO (08:18)
--- NOTE | 2021-11-26 12:11 | PM.PNNEP ---
Progress Note: A&P Assessment and Plan (1) MORAIMA (acute kidney injury): Code(s): N17.9 - Acute kidney failure, unspecified Status: Acute Assessment and Plan: likely due to the necessity diuresis/IV diuretics suspect a possible component of cardiorenal syndrome decreased perfusion to kidneys due to depressed EF leading to chronic prerenal azotemia worsened by the necessity of diuretic therapy to maintain/achieve euvolemia I wonder if his admission creatinine of 1.1 - 1.2mg/dl are dilutional values and his current creatinine is his true creatinine when he is close to optimal volume status follow trend of repeat labs and UOP (2) Hyponatremia: Code(s): E87.1 - Hypo-osmolality and hyponatremia Status: Acute Assessment and Plan: acute on chronic seems to run 127 - 131mmol/L at best since at least 2019 probably a manifestation of his fluctuating volume status in relation to his CHF and need for diuresis HOWEVER, his previous dobutamine gtt was using D5W as a carrier fluid which might explain his drop in sodium as well consider adding salt tabs but hesitant to do so given #3 (3) Acute on chronic systolic CHF (congestive heart failure), NYHA class 4: Code(s): I50.23 - Acute on chronic systolic (congestive) heart failure Status: Acute Assessment and Plan: clinical improvement noted with interventions to date off inontropic support transitioning to oral diuretics today remains on entresto, spironolactone, and jardiance Cardiology following (4) Anasarca: Code(s): R60.1 - Generalized edema Status: Acute Assessment and Plan: due to #3 doing better with current interventions (dobutamine gtt, IV diuretics, paracentesis...etc) follow volume status I suspect it may take a few days for his sodium level to even out following this hospitalization requiring IV diuretics and multiple medication adjustments and interventions to try and optimize his volume status. I would not be opposed discharge assuming he has close follow-up and repeat labs done in the next few days to ensure his sodium level remains stable if not improves. Will continue to follow. Subjective Date/time seen: 11/26/21 12:11 Appears to be doing well today - started on oral diuretic therapy today; remains in negative fluid balance; sodium still low but stable and does not appear symptomatic at this time. Exam Narrative: General: WD/WN female in NAD Heart: normal S1 and S2; no rub Lungs: clear anteriorly Abdomen: soft, nontender, nondistended, positive bowel sounds Extremities: no cyanosis or clubbing; no edema Skin: warm and dry Objective Data Vital Signs Vital Signs: Vital Signs Temp Pulse Resp BP Pulse Ox O2 Del Method 11/26/21 08:00 72 11/26/21 08:00 Room Air 11/26/21 08:16 74 11/26/21 06:00 36.9 C 72 16 106/64 90 11/26/21 04:00 72 11/26/21 00:00 70 11/25/21 20:00 71 11/25/21 22:00 36.6 C 70 16 106/64 90 11/25/21 20:00 Room Air 11/25/21 20:32 82 11/25/21 16:00 92 11/25/21 14:00 36.3 C L 74 16 103/73 90 Intake/Output Intake/Output: Intake & Output 11/23/21 11/24/21 11/25/21 11/26/21 23:59 23:59 23:59 23:59 Intake Total 2697 480 1570 690 Output Total 9750 2900 2600 1650 [facility] -7053 -2420 -1030 -960 Meds/Results Medications: Active Medications Generic Name Dose Route Start Last Admin Trade Name Richard PRN Reason Stop Dose Admin Acetaminophen 650 mg 11/19/21 17:41 Acetaminophen 325 Mg Tablet PO Q4H PRN Mild Pain (1-3) or Fever Carvedilol 6.25 mg 11/20/21 21:00 11/26/21 08:16 Carvedilol 6.25 Mg Tablet PO 6.25 mg Q12HR ESDRAS Administration Clopidogrel Bisulfate 75 mg 11/19/21 23:05 11/25/21 20:32 Clopidogrel Bisulfate 75 Mg Tablet PO 75 mg HS ESDRAS Administration Empagliflozin 10 mg 11/21/21 09:00 11/26/21 08:18 Emp
--- NOTE | 2021-11-26 12:11 | P.PNNP_ITS ---
Progress Note: A&P Assessment and Plan (1) MORAIMA (acute kidney injury): Code(s): N17.9 - Acute kidney failure, unspecified Status: Acute Assessment and Plan: * likely due to the necessity diuresis/IV diuretics * suspect a possible component of cardiorenal syndrome * decreased perfusion to kidneys due to depressed EF leading to chronic prerenal azotemia worsened by the necessity of diuretic therapy to maintain/achieve euvolemia * I wonder if his admission creatinine of 1.1 - 1.2mg/dl are dilutional values and his current creatinine is his true creatinine when he is close to optimal volume status * follow trend of repeat labs and UOP (2) Hyponatremia: Code(s): E87.1 - Hypo-osmolality and hyponatremia Status: Acute Assessment and Plan: * acute on chronic * seems to run 127 - 131mmol/L at best since at least 2018 * probably a manifestation of his fluctuating volume status in relation to his CHF and need for diuresis * HOWEVER, his previous dobutamine gtt was using D5W as a carrier fluid which might explain his drop in sodium as well * consider adding salt tabs but hesitant to do so given #3 (3) Acute on chronic systolic CHF (congestive heart failure), NYHA class 4: Code(s): I50.23 - Acute on chronic systolic (congestive) heart failure Status: Acute Assessment and Plan: * clinical improvement noted with interventions to date * off inontropic support * transitioning to oral diuretics today * remains on entresto, spironolactone, and jardiance * Cardiology following (4) Anasarca: Code(s): R60.1 - Generalized edema Status: Acute Assessment and Plan: * due to #3 * doing better with current interventions (dobutamine gtt, IV diuretics, paracentesis...etc) * follow volume status I suspect it may take a few days for his sodium level to even out following this hospitalization requiring IV diuretics and multiple medication adjustments and interventions to try and optimize his volume status. I would not be opposed discharge assuming he has close follow-up and repeat labs done in the next few days to ensure his sodium level remains stable if not improves. Will continue to follow. Subjective Date/time seen: 11/26/21 12:11 Appears to be doing well today - started on oral diuretic therapy today; remains in negative fluid balance; sodium still low but stable and does not appear sympt omatic at this time. Exam Narrative: General: WD/WN female in NAD Heart: normal S1 and S2; no rub Lungs: clear anteriorly Abdomen: soft, nontender, nondistended, positive bowel sounds Extremities: no cyanosis or clubbing; no edema Skin: warm and dry Objective Data Vital Signs Vital Signs: Vital Signs Temp Pulse Resp BP Pulse Ox O2 Del Method 11/26/21 08:00 72 11/26/21 08:00 Room Air 11/26/21 08:16 74 11/26/21 06:00 36.9 C 72 16 106/64 90 11/26/21 04:00 72 11/26/21 00:00 70 11/25/21 20:00 71 11/25/21 22:00 36.6 C 70 16 106/64 90 11/25/21 20:00 Room Air 11/25/21 20:32 82 11/25/21 16:00 92 11/25/21 14:00 36.3 C L 74 16 103/73 90 Intake/Output Intake/Output: Intake & Output 11/23/21 11/24/21 11/25/21 11/26/21 23:59 23:59 2
--- NOTE | 2021-11-26 15:08 | PM.PNCARD ---
Progress Note: A&P Assessment and Plan (1) CHF (congestive heart failure): Qualifiers: Heart failure chronicity: acute on chronic Heart failure type: systolic Qualified Code(s): I50.23 - Acute on chronic systolic (congestive) heart failure Code(s): I50.9 - Heart failure, unspecified Status: Acute Assessment and Plan: Doing well dobutamine thus far. Monitor volume status closely. Continue accurate input and output, daily weight. Tolerating Lasix 80 mg p.o. b.i.d. Monitor tolerance. Outpatient referral to Heart failure Clinic at [place]. Severe LV systolic dysfunction. He remains on a good medical regimen including spironolactone, carvedilol, Jardiance, Entresto. DVT prophylaxis. Thus far he is >-16.6 L. Discussed at length plan of care. Patient verbalized understanding and agreed. Reassess volume status in a.m.. Anticipate discharge once hyponatremia has stabilized. Patient is fairly well compensated in able to be discharged from a CHF perspective (2) Ischemic cardiomyopathy: Code(s): I25.5 - Ischemic cardiomyopathy Status: Acute Assessment and Plan: Severe LV systolic dysfunction EF 50%, status post biventricular ICD. Ventricular paced rhythm. (3) Hyponatremia: Code(s): E87.1 - Hypo-osmolality and hyponatremia Status: Acute Assessment and Plan: Sodium declining likely related to diuresis, medications. Appreciate Nephrology recommendations and involvement. Recheck in a.m. for stability/improvement. Continue current medical therapy for the time being. (4) CAD (coronary artery disease): Qualifiers: Coronary Disease-Associated Artery/Lesion type: [place] artery [place] vs. transplanted heart: [place] heart Associated angina: without angina Qualified Code(s): I25.10 - Atherosclerotic heart disease of [place] coronary artery without angina pectoris Code(s): I25.10 - Atherosclerotic heart disease of [place] coronary artery without angina pectoris Status: Acute Assessment and Plan: No angina. Continue medical therapy. Statin, clopidogrel. (5) PAD (peripheral artery disease): Code(s): I73.9 - Peripheral vascular disease, unspecified Status: Acute Assessment and Plan: Stable, denies claudication. Continue medical therapy. (6) Chronic kidney disease, stage 3: Code(s): N18.30 - Chronic kidney disease, stage 3 unspecified Status: Acute Assessment and Plan: Renal function stable. Monitor BMP. Will monitor response to diuretic therapy off dobutamine. Subjective Date/time seen: Date of service: 11/26/21 15:08 Follow-up for CHF, cardiomyopathy Patient feeling a lot better overall. Again less short of breath, less lower extremity edema. Abdomen does not feel distended. Good urine output overnight. Sodium dropped remains low 124. Tolerating medical therapy denies dizziness or lightheadedness. No chest pain. Review of Systems Review of Systems: All systems reviewed & are unremarkable except as noted in HPI and below Constitutional: Constitutional: Reports as per HPI and Reports no additional constitutional complaints Eyes: Eyes: Reports as per HPI and Reports no additional eye complaints ENT: Reports system reviewed and no additional complaints, except as documented and Reports as per HPI Cardiovascular: Cardiovascular: Reports as per HPI and Reports no additional cardiovascular complaints Respiratory: Respiratory: Reports as per HPI and Reports no additional respiratory complaints Gastrointestinal: Gastrointestinal: Reports as per HPI and Reports no additional gastrointestinal complaints Genitourinary: Genitourinary: Reports no additional male genitourinary complaints and Reports as per HPI Musculoskeletal: Musculoskeletal: Reports no additional musculoskeletal complaints and Reports as per HPI Integumentary/Breasts: Skin/Breast: Reports system reviewed and no additiona
[2021-11-26] MEDS: SIMVASTATIN 20 MG TABLET PO (20:36)
[2021-11-26] MEDS: CLOPIDOGREL BISULFATE 75 MG TABLET PO (20:37)
[2021-11-27] VITALS (7 sets, daily range): BP systolic 100–104; BP diastolic 68–69; PULSE 72–92; RESP 16; TEMP 36.6; O2SAT 96–98
[2021-11-27 06:49] LABS: Anion Gap 6 mmol/L (8-16); Blood Urea Nitrogen 44 mg/dL (9-20); Calcium 8.7 mg/dL (8.4-10.2); Carbon Dioxide 29 mmol/L (22-30); Chloride 89 mmol/L (98-107); Estimated CRCL calculation 45 ml/min; Estimated Glomerular Filt Rate 54; Glucose 98 mg/dL (65-110); Sodium 124 mmol/L (137-145)
[2021-11-27] MEDS: ENOXAPARIN 40 MG/0.4 ML SYRINGE SUB-Q (08:53)
[2021-11-27] MEDS: SACUBITRIL/VALSARTAN 24-26 MG TABLET 1 TAB PO (08:54)
[2021-11-27] MEDS: carvediloL 6.25 MG TABLET PO (08:54)
[2021-11-27] MEDS: PANTOPRAZOLE 40 MG TABLET PO (08:54)
[2021-11-27] MEDS: EMPAGLIFLOZIN 10 MG TABLET PO (08:54)
[2021-11-27] MEDS: FUROSEMIDE 80 MG TABLET PO (08:54)
[2021-11-27] MEDS: SPIRONOLACTONE 25 MG TABLET PO (08:54)
[2021-11-27] MEDS: SODIUM CHLORIDE 500 MG TABLET PO (08:55)
--- NOTE | 2021-11-27 09:01 | PM.PNCARD ---
Progress Note: A&P Assessment and Plan (1) CHF (congestive heart failure): Qualifiers: Heart failure chronicity: acute on chronic Heart failure type: systolic Qualified Code(s): I50.23 - Acute on chronic systolic (congestive) heart failure <CHRIS Romano - Last Filed: 11/27/21 13:27> Code(s): I50.9 - Heart failure, unspecified <CHRIS Romano - Last Filed: 11/27/21 13:27> Status: Acute <CHRIS Romano - Last Filed: 11/27/21 13:27> Assessment and Plan: Diuresed well on Dobutamine. Has been transitioned to oral furosemide at this point. Continue furosemide 80mg daily at discharge Continue accurate input and output Will stop sodium tabs on discharge BMP in one week as outpatient He remains on a good medical regimen for his cardiomyopathy including spironolactone, carvedilol, Jardiance, Entresto. DVT prophylaxis. OK for discharge today from a cardiac perspective. <CHRIS Romano - Last Filed: 11/27/21 13:27> (2) Ischemic cardiomyopathy: Code(s): I25.5 - Ischemic cardiomyopathy <CHRIS Romano - Last Filed: 11/27/21 13:27> Status: Acute <CHRIS Romano - Last Filed: 11/27/21 13:27> Assessment and Plan: Severe LV systolic dysfunction EF 15%, status post biventricular ICD. Ventricular paced rhythm. <CHRIS Romano - Last Filed: 11/27/21 13:27> (3) Hyponatremia: Code(s): E87.1 - Hypo-osmolality and hyponatremia <CHRIS Romano - Last Filed: 11/27/21 13:27> Status: Acute <CHRIS Romano - Last Filed: 11/27/21 13:27> Assessment and Plan: Sodium declining likely related to diuresis, medications. Appreciate Nephrology recommendations and involvement. Stable today. BMP in one week as outpatient <CHRIS Romano - Last Filed: 11/27/21 13:27> (4) CAD (coronary artery disease): Qualifiers: Associated angina: without angina Coronary Disease-Associated Artery/Lesion type: [place] artery [place] vs. transplanted heart: [place] heart Qualified Code(s): I25.10 - Atherosclerotic heart disease of [place] coronary artery without angina pectoris <DAPHNIE RomanoC - Last Filed: 11/27/21 13:27> Code(s): I25.10 - Atherosclerotic heart disease of [place] coronary artery without angina pectoris <DAPHNIE RomanoC - Last Filed: 11/27/21 13:27> Status: Acute <CHRIS Romano - Last Filed: 11/27/21 13:27> Assessment and Plan: No angina. Continue medical therapy. Statin, clopidogrel. <DAPHNIE RomanoC - Last Filed: 11/27/21 13:27> (5) PAD (peripheral artery disease): Code(s): I73.9 - Peripheral vascular disease, unspecified <DAPHNIE RomanoC - Last Filed: 11/27/21 13:27> Status: Acute <CHRIS Romano - Last Filed: 11/27/21 13:27> Assessment and Plan: Stable, denies claudication. Continue medical therapy. <CHRIS Romano - Last Filed: 11/27/21 13:27> (6) Chronic kidney disease, stage 3: Code(s): N18.30 - Chronic kidney disease, stage 3 unspecified <DAPHNIE RomanoC - Last Filed: 11/27/21 13:27> Status: Acute <CHRIS Romano - Last Filed: 11/27/21 13:27> Assessment and Plan: Renal function stable. Monitor BMP. Will monitor response to diuretic therapy off dobutamine. <CHRIS Romano - Last Filed: 11/27/21 13:27> Additional Plan Attending addendum: I agree with the above documentation and plan of care as outlined. <Eleuterio Gaspar MD - Last Filed: 11/27/21 17:25> Subjective Date/time seen: 11/27/21 09:01 Cardiology follow up for CHF Continues to improve. He has been up walking around the unit this morning with minimal shortness of breath. Still has some swelling but has improved significantly. Urine output good. <CHRIS Romano - Last Filed: 11/27/21 13:27> Review of Syste
--- NOTE | 2021-11-27 11:15 | P.PNNP_ITS ---
Progress Note: A&P Assessment and Plan (1) MORAIMA (acute kidney injury): Code(s): N17.9 - Acute kidney failure, unspecified Status: Acute Assessment and Plan: * likely due to the necessity diuresis/IV diuretics * suspect a possible component of cardiorenal syndrome * decreased perfusion to kidneys due to depressed EF leading to chronic prerenal azotemia worsened by the necessity of diuretic therapy to maintain/achieve euvolemia * I wonder if his admission creatinine of 1.1 - 1.2mg/dl are dilutional values and his current creatinine is his true creatinine when he is close to optimal volume status * follow trend of repeat labs and UOP (2) Hyponatremia: Code(s): E87.1 - Hypo-osmolality and hyponatremia Status: Acute Assessment and Plan: * acute on chronic * seems to run 127 - 131mmol/L at best since at least 2019 * probably a manifestation of his fluctuating volume status in relation to his CHF and need for diuresis * HOWEVER, his previous dobutamine gtt was using D5W as a carrier fluid which might explain his drop in sodium as well * adding salt tabs today due to persistence of this issue (3) Acute on chronic systolic CHF (congestive heart failure), NYHA class 4: Code(s): I50.23 - Acute on chronic systolic (congestive) heart failure Status: Acute Assessment and Plan: * clinical improvement noted with interventions to date * off inontropic support * transitioning to oral diuretics today * remains on entresto, spironolactone, and jardiance * Cardiology following (4) Anasarca: Code(s): R60.1 - Generalized edema Status: Acute Assessment and Plan: * due to #3 * doing better with current interventions (dobutamine gtt, IV diuretics, paracentesis...etc) * follow volume status Will continue to follow. Subjective Date/time seen: 11/27/21 11:15 Continues to do quite well with regarding to swelling/edema and respiratory status; sodium remains unchanged but no attributable symptoms from this electrolytes abnormality; no issues/events overnight or earlier this morning. Exam Narrative: General: WD/WN male in NAD Heart: normal S1 and S2; no rub Lungs: clear anteriorly Abdomen: soft, nontender, nondistended, positive bowel sounds Extremities: no cyanosis or clubbing; no edema Skin: warm and intact Objective Data Vital Signs Vital Signs: Vital Signs Temp Pulse Resp BP Pulse Ox O2 Del Method 11/27/21 08:00 83 11/27/21 08:53 72 104/69 11/27/21 08:36 96 Room Air 11/27/21 06:00 36.6 C 72 16 100/68 98 11/26/21 20:00 76 11/27/21 00:00 81 11/27/21 04:00 72 11/27/21 02:45 CPAP 11/26/21 21:50 95 Room Air 11/26/21 21:08 36.7 C 76 16 108/69 100 11/26/21 20:00 Room Air 11/26/21 20:37 78 11/26/21 16:00 74 11/26/21 14:00 36.3 C L 97 15 106/70 100 11/26/21 14:35 97 Room Air Intake/Output Intake/Output: Intake & Output 11/24/21 11/25/21 11/26/21 11/27/21 23:59 23:59 23:59 23:59 Intake Total 480 1570 1975 50 Output Total 2900 2600 3200 1100 Balance -2420 -1030 -1225 -1050 Meds/Results Medications:
--- NOTE | 2021-11-27 11:15 | PM.PNNEP ---
Progress Note: A&P Assessment and Plan (1) MORAIMA (acute kidney injury): Code(s): N17.9 - Acute kidney failure, unspecified Status: Acute Assessment and Plan: likely due to the necessity diuresis/IV diuretics suspect a possible component of cardiorenal syndrome decreased perfusion to kidneys due to depressed EF leading to chronic prerenal azotemia worsened by the necessity of diuretic therapy to maintain/achieve euvolemia I wonder if his admission creatinine of 1.1 - 1.2mg/dl are dilutional values and his current creatinine is his true creatinine when he is close to optimal volume status follow trend of repeat labs and UOP (2) Hyponatremia: Code(s): E87.1 - Hypo-osmolality and hyponatremia Status: Acute Assessment and Plan: acute on chronic seems to run 127 - 131mmol/L at best since at least 2019 probably a manifestation of his fluctuating volume status in relation to his CHF and need for diuresis HOWEVER, his previous dobutamine gtt was using D5W as a carrier fluid which might explain his drop in sodium as well adding salt tabs today due to persistence of this issue (3) Acute on chronic systolic CHF (congestive heart failure), NYHA class 4: Code(s): I50.23 - Acute on chronic systolic (congestive) heart failure Status: Acute Assessment and Plan: clinical improvement noted with interventions to date off inontropic support transitioning to oral diuretics today remains on entresto, spironolactone, and jardiance Cardiology following (4) Anasarca: Code(s): R60.1 - Generalized edema Status: Acute Assessment and Plan: due to #3 doing better with current interventions (dobutamine gtt, IV diuretics, paracentesis...etc) follow volume status Will continue to follow. Subjective Date/time seen: 11/27/21 11:15 Continues to do quite well with regarding to swelling/edema and respiratory status; sodium remains unchanged but no attributable symptoms from this electrolytes abnormality; no issues/events overnight or earlier this morning. Exam Narrative: General: WD/WN male in NAD Heart: normal S1 and S2; no rub Lungs: clear anteriorly Abdomen: soft, nontender, nondistended, positive bowel sounds Extremities: no cyanosis or clubbing; no edema Skin: warm and intact Objective Data Vital Signs Vital Signs: Vital Signs Temp Pulse Resp BP Pulse Ox O2 Del Method 11/27/21 08:00 83 11/27/21 08:53 72 104/69 11/27/21 08:36 96 Room Air 11/27/21 06:00 36.6 C 72 16 100/68 98 11/26/21 20:00 76 11/27/21 00:00 81 11/27/21 04:00 72 11/27/21 02:45 CPAP 11/26/21 21:50 95 Room Air 11/26/21 21:08 36.7 C 76 16 108/69 100 11/26/21 20:00 Room Air 11/26/21 20:37 78 11/26/21 16:00 74 11/26/21 14:00 36.3 C L 97 15 106/70 100 11/26/21 14:35 97 Room Air Intake/Output Intake/Output: Intake & Output 11/24/21 11/25/21 11/26/21 11/27/21 23:59 23:59 23:59 23:59 Intake Total 480 1570 1975 50 Output Total 29[address] [place] [address] -2420 -1030 -1225 -1050 Meds/Results Medications: Active Medications Generic Name Dose Route Start Last Admin Trade Name Freq PRN Reason Stop Dose Admin Acetaminophen 650 mg 11/19/21 17:41 Acetaminophen 325 Mg Tablet PO Q4H PRN Mild Pain (1-3) or Fever Carvedilol 6.25 mg 11/20/21 21:00 11/27/21 08:54 Carvedilol 6.25 Mg Tablet PO 6.25 mg Q12HR ESDRAS Administration Clopidogrel Bisulfate 75 mg 11/19/21 23:05 11/26/21 20:37 Clopidogrel Bisulfate 75 Mg Tablet PO 75 mg HS ESDRAS Administration Empagliflozin 10 mg 11/21/21 09:00 11/27/21 08:54 Empagliflozin 10 Mg Tablet PO 10 mg QAM ESDRAS Administration Enoxaparin Sodium 40 mg 11/20/21 09:00 11/27/21 08:53 Enoxaparin 40 Mg/0.4 Ml Syringe SUB-Q 40 mg DAILY ESDRAS Administration Furosemide 80 mg 11/26/21 09
--- NOTE | 2021-11-27 14:38 | PM.DS ---
DS: Admitting Diagnosis Discharge Date 11/27/21 Admitting Diagnosis Weakness DS: Discharge Diagnosis Discharge Diagnosis (1) CHF (congestive heart failure): Qualifiers: Heart failure chronicity: acute on chronic Heart failure type: systolic Qualified Code(s): I50.23 - Acute on chronic systolic (congestive) heart failure Code(s): I50.9 - Heart failure, unspecified Status: Acute Assessment and Plan: Patient with Acute on Chronic Systolic and Diastolic CHF exacerbation with a component of right sided failure. Patient presented with weakness, abdominal bloating and leg edema consistent with fluid overload.?CXR showed increasing right pleural effusion and cardiomegaly.?CT of the chest, abdomen pelvis was performed with contrast which did have some limitations showing small bilateral pleural effusions and ascites.?BNP was 23K.?Troponin negative x3.? EKG showed paced rhythm.? Echo showed severe LV enlargement with severe global LV systolic dysfunction and EF of less than 15% as well as abnormal diastolic function.? He also has RV enlargement with right ventricular systolic dysfunction and severe biatrial enlargement.? Mild valvular disease as well as moderate TR and moderate pulmonary hypertension.? Patient on admission was on spironolactone, Entresto, Lasix, dapagliflozin and Coreg.? Patient was started on IV diuretics with good UOP. Metolazone added x 2 doses with excellent response. Negative fluid balance -17.7L He required Dobutamine infusion to help with fluid management. He had clinical improvement. He is up walking in the halls and able to walk further before he becomes SOB. Cr up to 1.6 but better at 1.3 today. Na dropped to 124. Concern for cardiorenal syndrome. Appreciate Cardiology and nephrology input. (2) MORAIMA (acute kidney injury): Code(s): N17.9 - Acute kidney failure, unspecified Status: Acute Assessment and Plan: As above. Cr up to 1.6 related to diuresis and poor EF. Not unexpected as he is diuresed. Improved at time of discharge. (3) Hyponatremia: Code(s): E87.1 - Hypo-osmolality and hyponatremia Status: Acute Assessment and Plan: Patient with chronic hyponatremia. Na low on admission at 131 felt related to poor renal perfusion from his poor EF. Na dropped to 124 related to above. Nephrology made adjustments but Na level was relatively unchanged. NaCl tabs started but not continued at discharge given the low EF. Kell the hyponatremia should improve with time and fluid status improves. (4) Anasarca: Code(s): R60.1 - Generalized edema Status: Acute Assessment and Plan: Patient with anasarca and ascites related to CHF. Renal function was normal on admission so doubt related kidney issues. Liver appears normal on imaging and Albumin 3.2 so felt unlikely related to liver failure. Paracentesis was performed 11/20 showing cloudy fluid but only 72 WBC. Peritoneal fluid pathology negative for malignancy.? Blood cultures negative.? Peritoneal fluid culture negative. As above. (5) AAA (abdominal aortic aneurysm): Code(s): I71.4 - Abdominal aortic aneurysm, without rupture Status: Inactive Assessment and Plan: CT of the chest on admission shows a 4.7 cm fusiform ascending thoracic aortic aneurysm.? Given the severity of his cardiac condition however, it is unlikely that this will be repaired given the high risk.? Blood pressure remained well controlled. Further management per Cardiology. 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 Also of note is the aortobifemoral graft but patency
== END 2021-11-27 15:45 | disposition home or self-care (01) | DRG 291 ==
LOC: ANHED 17:49 → ANHIMU 18:19 → ANH3MEDSUR 11-27 14:50 → ANHIMU 11-28 17:05
PROVIDERS: Internal Medicine; Nurse Practitioner; Admitting Provider Chiropractor; Emergency Provider Emergency Medicine; PCP Family Medicine; Visit Provider Internal Medicine
DX: I13.0 Hypertensive heart and chronic kidney disease with heart failure and stage 1 through stage 4 chronic kidney disease, or unspecified chronic kidney disease (principal); I50.43 Acute on chronic combined systolic (congestive) and diastolic (congestive) heart failure; N17.9 Acute kidney failure, unspecified; E87.1 Hypo-osmolality and hyponatremia; I50.813 Acute on chronic right heart failure; E11.51 Type 2 diabetes mellitus with diabetic peripheral angiopathy without gangrene; E11.22 Type 2 diabetes mellitus with diabetic chronic kidney disease; N18.30 Chronic kidney disease, stage 3 unspecified; I25.5 Ischemic cardiomyopathy; Z20.822 Contact with and (suspected) exposure to COVID-19; I71.4 Abdominal aortic aneurysm, without rupture; I25.10 Atherosclerotic heart disease of native coronary artery without angina pectoris; K21.9 Gastro-esophageal reflux disease without esophagitis; E78.5 Hyperlipidemia, unspecified; I25.2 Old myocardial infarction; Z79.899 Other long term (current) drug therapy; Z86.16 Personal history of COVID-19; Z87.891 Personal history of nicotine dependence; Z95.1 Presence of aortocoronary bypass graft; Z95.810 Presence of automatic (implantable) cardiac defibrillator; Z95.828 Presence of other vascular implants and grafts
CPT/HCPCS: 36415; 36600; 49083; 71045; 71046; 71260; 74177; 80048; 80053; 80069; 80076; 81003; 82042; 82607; 82746; 82805; 82945; 83605; 83615; 83735; 83880; 84100; 84157; 84443; 84484; 85025; 85027; 85055; 85610; 85730; 86140; 87040; 87070; 87075; 87205; 88104; 88108; 88305; 89051; 93005; 93306; 96372; 96374; 96376; 97161; 97165; 99285; A9270; C9803; G0378; J1250; J1650; J1940; Q9967; U0003; U0005

== ENCOUNTER 2022-01-31 08:29 | Outpatient (CLI) | payer MEDICARE, SELFPAY ==
--- NOTE | ~2022-01-31 | US_ITS ---
EXAMINATION: US paracentesis abd w/image DATE: 01/31/2022 11:08 INDICATION: Ascites. TECHNIQUE: The procedure and its risks, benefits, and alternatives were discussed with the patient. P otential risks discussed included bleeding and infection. The skin was prepped and draped in sterile fashion. 1% lidocaine was used for local anesthesia. Under ultrasound guidance, a 5 Fr catheter with trochar was advanced into the ascites in the right lower quadrant. Fluid was aspirated. The catheter was removed, and a dressing was applied. There were no immediate complications. FINDINGS: Ultrasound images demonstrate ascites and the catheter within the fluid. IMPRESSION: 1. Successful ultrasound-guided paracentesis yielding 2600 mL of apoorva-colored fluid. Reviewed, dictated and finalized at location A.
[2022-01-31 09:51] LABS: Immature Platelet Fraction Pct 6.2 % (0.9-11.2); Mean Platelet Volume 10.1 fl (7.4-10.4); Platelet Count Result 148 k/mm3 (150-375)
[2022-01-31 10:01] LABS: INR 1.3
== END 2022-01-31 08:30 | disposition home or self-care (01) ==
PROVIDERS: Radiology Diagnostic Radiology; PCP Family Medicine; Visit Provider Family Medicine
DX: R18.8 Other ascites (principal)
CPT/HCPCS: 36415; 49083; 85049; 85055; 85610

== ENCOUNTER 2022-03-12 09:44 | Outpatient (CLI) | payer MEDICARE, SELFPAY ==
--- NOTE | ~2022-03-12 | US_ITS ---
EXAMINATION: US paracentesis abd w/image DATE: 03/12/2022 10:45 INDICATION: Ascites due to congestive heart failure. TECHNIQUE: The procedure and its risks and benefits were discussed with the patient. Potential risks discussed included bleeding and infection. The skin was prepped and draped in sterile fashion. 1% lid ocaine was used for local anesthesia. Under ultrasound guidance, a 5 Fr catheter with trochar was adv anced into the ascites in the left lower quadrant. Fluid was aspirated into vacuum bottles. The cassie ter was removed, and a dressing was applied. There were no immediate complications. FINDINGS: Ultrasound images demonstrate ascites and the catheter within the fluid. IMPRESSION: 1. Successful ultrasound-guided paracentesis yielding 2250 mL of clear yellow fluid. Reviewed, dictated and finalized at location A.
== END 2022-03-12 09:45 | disposition home or self-care (01) ==
LOC: ANHIMG 09:47
PROVIDERS: PCP Family Medicine; Visit Provider Family Medicine
DX: I50.810 Right heart failure, unspecified (principal)
CPT/HCPCS: 49083

== ENCOUNTER 2022-04-16 09:18 | Outpatient (CLI) | payer MEDICARE, SELFPAY ==
--- NOTE | ~2022-04-16 | US_ITS ---
EXAMINATION: US paracentesis abd w/image DATE: 04/16/2022 10:50 INDICATION: Ascites. TECHNIQUE: The procedure and its risks and benefits were discussed with the patient. Potential risks discussed included bleeding and infection. The skin was prepped and draped in sterile fashion. 1% lid ocaine was used for local anesthesia. Under ultrasound guidance, a 5 Fr catheter with trochar was adv anced into the ascites in the left lower quadrant. Fluid was aspirated into vacuum bottles. The cassie ter was removed, and a dressing was applied. There were no immediate complications. FINDINGS: Ultrasound images demonstrate ascites and the catheter within the fluid. Incidentally noted is a 2 cm hyperechoic lesion at the junction of the left and right hepatic lobes. There is a nodular liver yoko face consistent with cirrhosis. IMPRESSION: 1. Successful ultrasound-guided paracentesis yielding 3200 mL of cloudy orange fluid. 2. Subtle nodular liver surface suspicious for cirrhosis with indeterminate 2.0 cm hyperechoic hepati c lesion. Although hyperechoic liver lesions are typical for hemangiomas would consider further evalu ation with pre and postcontrast MRI or CT. Reviewed, dictated and finalized at location A. IMPRESSION: 1. Successful ultrasound-guided paracentesis yielding 3200 mL of cloudy orange fluid. 2. Subtle nodular liver surface suspicious for cirrhosis with indeterminate 2.0 cm hyperechoic hepatic lesion. Although hyperechoic liver lesions are typical for hemangiomas would consider further evaluation with pre and postcontrast MRI or CT.
== END 2022-04-16 09:19 | disposition home or self-care (01) ==
PROVIDERS: PCP Family Medicine; Visit Provider Family Medicine
DX: R18.8 Other ascites (principal)
CPT/HCPCS: 49083

== ENCOUNTER 2022-05-14 09:18 | Outpatient (CLI) | payer MEDICARE, SELFPAY ==
--- NOTE | ~2022-05-14 | US_ITS ---
EXAMINATION: US paracentesis abd w/image DATE: 05/14/2022 11:00 INDICATION: Ascites. TECHNIQUE: The procedure and its risks, benefits, and alternatives were discussed with the patient. P otential risks discussed included bleeding and infection. The skin was prepped and draped in sterile fashion. 1% lidocaine was used for local anesthesia. Under ultrasound guidance, a 5 Fr catheter with trochar was advanced into the ascites in the left lower quadrant. Fluid was aspirated. The catheter w as removed, and a dressing was applied. There were no immediate complications. FINDINGS: Ultrasound images demonstrate ascites and the catheter within the fluid. IMPRESSION: 1. Successful ultrasound-guided paracentesis yielding 3000 mL of clear, yellow fluid. Reviewed, dictated and finalized at location A. ED GOODS INSPECTOR TRIMMER
== END 2022-05-14 09:19 | disposition home or self-care (01) ==
PROVIDERS: PCP Family Medicine; Visit Provider Family Medicine
DX: I50.9 Heart failure, unspecified (principal); R18.8 Other ascites
CPT/HCPCS: 49083

== ENCOUNTER 2022-05-28 11:56 | Inpatient (IN) | payer MEDICARE, SELFPAY ==
[2022-05-28] VITALS (11 sets, daily range): BP systolic 98–164; BP diastolic 65–105; PULSE 70–89; RESP 14–20; TEMP 36.3–36.8; O2SAT 96–100; BMI 30.5
--- NOTE | ~2022-05-28 | US_ITS ---
EXAMINATION: US paracentesis abd w/image DATE: 06/03/2022 15:07 INDICATION: Ascites. TECHNIQUE: The procedure and its risks and benefits were discussed with the patient. Potential risks discussed included bleeding and infection. The skin was prepped and draped in sterile fashion. 1% lid ocaine was used for local anesthesia. Under ultrasound guidance, a 5 Fr catheter with trochar was adv anced into the ascites in the right lower quadrant. Fluid was aspirated into vacuum bottles. The cath eter was removed, and a dressing was applied. There were no immediate complications. FINDINGS: Ultrasound images demonstrate ascites and the catheter within the fluid. IMPRESSION: 1. Successful ultrasound-guided paracentesis yielding 2100 mL of clear yellow fluid. Reviewed, dictated and finalized at location A. R ENGINEER
--- NOTE | ~2022-05-28 | US_ITS ---
EXAMINATION: US abdomen limited DATE: 05/29/2022 09:51 INDICATION: Thrombocytopenia. Ascites. TECHNIQUE: Multiple grayscale and Doppler ultrasound images of the abdomen were obtained. COMPARISON: CT abdomen and pelvis 11/19/2021 FINDINGS: There are cysts in the liver measuring up to 3.5 cm. The spleen is normal in size. There is bidirectional flow in main portal vein. There is a large volume of ascites. IMPRESSION: 1. Large volume of ascites. Reviewed, dictated and finalized at location A. R HEAD IMPRESSION: 1. Large volume of ascites.
--- NOTE | ~2022-05-28 | US_ITS ---
EXAMINATION:US venous doppler LE BI INDICATION:Leg edema TECHNIQUE: Multiple grayscale, color flow and Doppler images of the right and left lower extremity de ep venous systems were obtained and reviewed. COMPARISON:No prior studies for comparison. FINDINGS: The common femoral, superficial femoral and popliteal veins demonstrate normal respiratory variation, augmentation and compressibility. Color flow is also seen within the posterior tibial, pe roneal, greater saphenous and profunda veins. IMPRESSION: 1: No lower extremity deep venous thrombosis. Reviewed, dictated and finalized at location A. CH CHIEF
--- NOTE | ~2022-05-28 | CT_ITS ---
EXAMINATION: CT brain wo con DATE: 05/28/2022 12:32 INDICATION: Status post fall. Patient on Plavix. TECHNIQUE: Computed tomography (CT) of the head was performed without intravenous contrast. The dose- length product was 605.33 mGy-cm. Automated exposure control and iterative reconstruction technique were employed. COMPARISON: None FINDINGS: Mild generalized atrophy. No ventriculomegaly or midline shift. There are scattered mild pe riventricular and subcortical white matter changes, most likely related to small vessel ischemic dise ase (microangiopathy). No acute intracranial hemorrhage, infarction, mass or mass effect. No ventricu lomegaly or midline shift. There is intracranial atherosclerosis. Small mucous retention cyst right m axillary sinus. Mastoids are pneumatized. No depressed skull fractures. IMPRESSION: 1. No acute intracranial abnormality. 2: Chronic age-related findings. Reviewed, dictated and finalized at location A. ALS INTELLIGENCE ANALYST
--- NOTE | ~2022-05-28 | US_ITS ---
EXAMINATION: US venous doppler UE DATE: 06/02/2022 12:45 INDICATION: Left upper extremity edema TECHNIQUE: Kang scale images with and without compression and Doppler images of the left upper extrem ity veins were obtained. COMPARISON: None. FINDINGS: The left internal jugular vein, subclavian vein, axillary vein, brachial veins, basilic vein, cephali c vein, radial vein, and ulnar vein are patent. IMPRESSION: 1. Patent left upper extremity veins. No evidence of deep venous thrombosis. Reviewed, dictated and finalized at location A. D DIRECTOR
--- NOTE | ~2022-05-28 | XR_ITS ---
XR chest 1V 05/28/2022 12:35 Indication: Recurring falls. CHF. Procedure: AP portable chest Comparison: Comparison to multiple prior studies sequentially, with oldest reviewed study dated 10/08. Findings: Status post median sternotomy for CABG. Pacemaker leads are stable. Cardiomegaly. Right ple ural effusion. Mild interstitial edema. There are healed right rib fractures. No pneumothorax. No acu te osseous abnormality. Impression: 1: Cardiomegaly with mild interstitial edema. 2: Small chronic right pleural effusion. Reviewed, dictated and finalized at location A. ST SCIENTIFIC Impression: 1: Cardiomegaly with mild interstitial edema. 2: Small chronic right pleural effusion.
--- NOTE | ~2022-05-28 | CT_ITS ---
EXAMINATION: CT cervical spine wo con DATE: 05/28/2022 12:32 INDICATION: Head injury. TECHNIQUE: Computed tomography (CT) of the cervical spine was performed without intravenous contrast. Automated exposure control and iterative reconstruction technique were employed. The dose-length pro duct was 299.91 mGy-cm. COMPARISON: None FINDINGS: There are bilateral pleural effusions. There is 7 degrees levocurvature of cervical spine. Vertebral body heights are normal. Intervertebral disc heights are normal. The following disc levels are specifically discussed: C2-C3: There is no uncovertebral joint osteoarthritis. There is severe right and mild left facet join t osteoarthritis. There is no neural foraminal stenosis. There is no central canal stenosis. C3-C4: There is mild bilateral uncovertebral joint osteoarthritis. There is no facet joint osteoarthr itis. There is no neural foraminal stenosis. There is no central canal stenosis. C4-C5: There is mild bilateral uncovertebral joint osteoarthritis. There is mild bilateral facet join t osteoarthritis. There is no neural foraminal stenosis. There is no central canal stenosis. C5-C6: There is mild right and severe left uncovertebral joint osteoarthritis. There is mild bilatera l facet joint osteoarthritis. There is mild left neural foraminal stenosis. There is mild central can al stenosis. C6-C7: There is no uncovertebral joint osteoarthritis. There is no facet joint osteoarthritis. There is no neural foraminal stenosis. There is no central canal stenosis. C7-T1: There is no uncovertebral joint osteoarthritis. There is moderate right and mild left facet sully int osteoarthritis. There is no neural foraminal stenosis. There is no central canal stenosis. IMPRESSION: 1. No fracture. 2. Mild cervical spondylosis. Reviewed, dictated and finalized at location A. IBILITY TECHNICIAN
--- NOTE | 2022-05-28 12:10 | ECG_ITS ---
Measurements Intervals Picher Rate: 69 P: PA: 0 QRS: 222 QRSD: 198 T: 42 QT: 539 QTc: 581 Interpretive Statements ELECTRONIC VENTRICULAR PACEMAKER BASELINE ARTIFACT- I, III, AVR, AVL, AVF NO FURTHER INTERPRETATION IS POSSIBLE ATYPICAL ECG COMPARED TO ECG 11/19/2021 14:05:27 Electronically Signed On 05-28-2022 14:06:06 STEAMBLASTER by Jon Carlos D.O.
--- NOTE | 2022-05-28 12:12 | ED.GENADULT ---
HPI - General Adult General Chief complaint: Fall Stated complaint: fall, hit head History of Present Illness HPI narrative: This is a 76-year-old male presenting ED following a fall. Patient has history of severe CHF can only ambulate about 10 steps for his out of breath. Patient has notes that he is having severe pitting edema of his lower extremities and distention of his abdomen. He has been taking his medications as directed. Last night he bent over to tie his shoe lost his balance and fell forward and struck his head. He did not come to the ER at this time. Today he was walking when he tripped over his own shoes and fell forward. He struck his head. He did not lose consciousness. He did have significant skin tears over his right forearm and left arm. EMS was called and patient was then brought to hospital. At this time the patient is denying chest pain, his shortness of breath is at its baseline, denies abdominal pain, fever, chills, nausea vomiting or diarrhea. Related Data Home Medications Medication Instructions Recorded Confirmed nitroglycerin 0.4 mg sublingual 0.4 mg sublingual PRN PRN Chest 11/19/21 11/19/21 tablet Pain pantoprazole 40 mg tablet,delayed 40 mg PO DAILY 11/19/21 11/19/21 release simvastatin 20 mg tablet 20 mg PO HS 11/19/21 11/19/21 tizanidine 4 mg tablet 4 mg PO HS PRN Muscle Spasm 11/19/21 11/19/21 Allergies Allergy/AdvReac Type Severity Reaction Status Date / Time No Known Allergies Allergy Unknown Verified 11/19/21 13:34 Review of Systems Review of Systems: CONSTITUTIONAL: Denies night sweats. EYES: No eye pain ENT: Denies rhinorrhea CARDIOVASCULAR: Denies palpitations RESPIRATORY: Denies hemoptysis GASTROINTESTINAL: Denies hematemesis GENITOURINARY: Denies hematuria. SKIN: Denies rash MUSCULOSKELETAL: Denies myalgia. NEUROLOGIC: Denies weakness. PSYCHIATRIC: Denies delusions [facility] Past Medical History Medical History AAA (abdominal aortic aneurysm) 07/1998 CAD (coronary artery disease) CHF (congestive heart failure) Surgical History Surgical History History of coronary artery bypass graft History of endarterectomy Social History Social History Smoking packs per day: 2 Smoking cigarettes per day: 40.0 Years smoked: 30 Smoking pack-years: 60.00 Smoking status: Former smoker Tobacco type: cigarettes Alcohol intake: current Drinks per week: 7 Substance use: never Substance use type: does not use Spiritual care concerns: Yes (Episcopalian) Exam Narrative: APPEARANCE: No apparent distress. Patient is polite laughing during the interview Head: Bruising over the patient's right forehead with small Patric not requiring suture repair. EYES: EOMI, NOSE: Atraumatic NECK: Trachea midline RESPIRATORY: No increased rate of breathing CARDIOVASCULAR: patient has pitting edema to the hips with a distended abdomen. ABDOMINAL: Distended, nontender no guarding or rebound MUSCULOSKELETAl: No obvious deformities NEURO: Alert. Cranial nerves 2-12 grossly intact. Sensation light touch, motor function cerebellar function intact for 4 extremities. Gait exam was deferred SKIN:: Skin tear over the right forearm that is 3 in x 3 in. The skin flap is completely avulsed. Multiple minor skin tears on the left arm PSYCHIATRIC: Normal affect Course Vital Signs Vital signs: Vital Signs Temperature 98.2 F 05/28/22 12:14 Pulse Rate 71 05/28/22 12:14 Respiratory Rate 18 05/28/22 12:14 Blood Pressure 164/105 H 05/28/22 12:14 Pulse Oximetry 100 05/28/22 12:14 Oxygen Delivery Room Air 05/28/22 12:14 Temperature 98.2 F 05/28/22 12:14 Pulse Rate 71 05/28/22 12:14 Respiratory Rate 18 05/28/22 12:14 Blood Pressure 164/105 H 05/28/22 12:14 Pulse Oximetry 100
[2022-05-28 12:37] LABS: Basophils Percent Auto 0.5 % (0.2-1.2); Eosinophils Percent Auto 0.8 % (0-4.4); Hematocrit 36.4 % (42.0-52.0); Hemoglobin 12.4 g/dL (14.0-18.0); Immature Granulocyte Absolute 0.03 K/mm3 (0.00-0.031); Immature Granulocyte Percent A 0.8 % (0-0.5); Immature Platelet Fraction Pct 7.7 % (0.9-11.2); Lymphocytes Absolute Auto 0.29 K/mm3 (0.9-3.2); Lymphocytes Percent Auto 7.5 % (18.3-44.2); Mean Corpuscular HGB Conc 34.1 g/dl (32-36); Mean Corpuscular Hemoglobin 35.2 pg (26-34); Mean Corpuscular Volume 103.4 fl (80-100); Mean Platelet Volume 11.3 fl (7.4-10.4); Monocytes Absolute Auto 0.5 K/mm3 (0.1-0.6); Monocytes Percent Auto 13.7 % (2.6-8.5); Neutrophils Percent Auto 76.7 % (45.5-73.1); Platelet Count Result 111 k/mm3 (150-375); Red Blood Count 3.52 M/mm3 (4.6-6.20); Red Cell Distribution Width 16.6 % (11.5-14.5); White Blood Count 3.9 K/mm3 (4.5-10.0)
[2022-05-28 12:46] LABS: Alanine Aminotransferase 27 U/L (6-50); Alkaline Phosphatase 125 U/L (38-126); Anion Gap 7 mmol/L (8-16); Aspartate Amino Transferase 48 U/L (17-59); Bilirubin,Total 1.3 mg/dL (0.2-1.3); Blood Urea Nitrogen 49 mg/dL (9-20); Calcium 8.3 mg/dL (8.4-10.2); Carbon Dioxide 28 mmol/L (22-30); Chloride 99 mmol/L (98-107); Estimated Glomerular Filt Rate 46; Glucose 87 mg/dL (65-110); Lipase 108 U/L (23-300); Magnesium 1.9 mg/dL (1.6-2.3); Potassium 4.1 mmol/L (3.4-5.0); Sodium 134 mmol/L (137-145)
[2022-05-28 12:46] LABS: INR 1.4; Partial Thromboplastin Time 35.9 SECONDS (22.3-36.8); Prothrombin Time 16.5 Seconds (11.1-14.7)
[2022-05-28 12:56] LABS: Troponin I 0.023 ng/mL (0.000-0.034)
[2022-05-28] MEDS: FUROSEMIDE INJ 100 MG/10 ML VIAL 80 MG IV PUSH (13:26)
[2022-05-28] MEDS: TETANUS,DIPHTHERIA,AC PERTUSSIS ADULT (0.5 ML) BOOSTRIX IM (13:27)
[2022-05-28] MEDS: ACETAMINOPHEN 500 MG TABLET 1000 MG PO (13:27)
[2022-05-28 13:53] LABS: Glucose Point of Care 98 mg/dl (65-105)
[2022-05-28 14:09] LABS: Influenza A QL RT-PCR Negative (Negative); Influenza B QL RT-PCR Negative (Negative); SARS-CoV-2 RNA PCR Negative
[2022-05-28 16:08] LABS: Troponin I 0.023 ng/mL (0.000-0.034)
--- NOTE | 2022-05-28 16:20 | PM.IMHP ---
H&P: HPI History of Present Illness Date/Time: 05/28/22 16:20 Chief Complaint: Fall x2 and shortness of breath. Narrative: This is a very pleasant 76-year-old male with heart failure with reduced ejection fraction (EF less than 15% on echocardiogram in October 2021), coronary artery disease, peripheral vascular disease, ischemic cardiomyopathy status post biventricular ICD, sleep apnea, and chronic kidney disease who presented to the emergency department via EMS from home for evaluation of shortness of breath and fall x2. He has had 2 falls in last 24 hours, last night he fell forward while bending over to pick something up off of the floor and this morning he lost his balance and got tripped up in his shoes and fell forward striking his head on the ground. He did sustain a shallow laceration over the right forehead but denies any other injuries in the fall. There was no loss of consciousness and he denies prodrome prior to the fall, stating he just lost his balance. Additionally he reports at least a 20 pound weight gain over the last several months with pitting edema up to the abdomen. His abdomen is swollen and he thinks he needs a paracentesis. He also reports chronic orthopnea and increasing dyspnea on lesser and lesser exertion. He denies lightheadedness, dizziness, auditory and visual changes, focal weakness, paresthesias, cold and flu symptoms, chest pain, pleuritic pain, palpitations, cough, nausea, and vomiting. In the emergency department the wound on his forehead was cleaned and reapproximated with Steri-Strips. CT of the head and neck showed no acute findings. Chest x-ray showed cardiomegaly with mild interstitial edema. He was given a dose of IV Lasix in the emergency department and he is being admitted in this setting for diuresis, paracentesis, and PT/OT evaluation. Review of Systems Review of Systems: Twelve systems were reviewed and are negative except for as per HPI. [facility] Past Medical History Medical History (Updated 05/29/22 @ 00:01 by Patricia Hoyt PA-C) Abdominal aortic aneurysm (07/1998) Basal cell carcinoma (BCC) of skin of nose Chronic anemia Chronic kidney disease, stage 3 Congestive heart failure Coronary artery disease GI bleed Secondary to colonic angiodysplasias. Heart failure with reduced ejection fraction Ischemic cardiomyopathy Obstructive sleep apnea on CPAP Peripheral arterial disease with history of revascularization Surgical History Surgical History (Updated 05/28/22 @ 23:54 by Patricia Hoyt PA-C) History of abdominal aortic aneurysm repair History of coronary artery bypass graft (1998) History of endarterectomy History of vascular surgery Bilateral lower extremity stents. Status post biventricular cardiac pacemaker insertion Family History Family History Other Acute myocardial infarction Cerebrovascular accident Peripheral vascular disease Social History Social History (Updated 05/28/22 @ 23:55 by Patricia Hoyt PA-C) Social History: Surrogate medical decision maker: Code status: Full code. Smoking packs per day: 2 Smoking cigarettes per day: 40.0 Years smoked: 30 Smoking pack-years: 60.00 Smoking status: Former smoker Alcohol intake: current Drinks per week: 7 Substance use: never Substance use type: does not use Lack of Transportation: No Lack of Food: Never True Current Housing: I Have Housing Concerned About Future Housing: No Difficulty Paying Gas/Electric Bills: No Difficulty Paying for Meds: No Currently Unemployed: No Education: Associate Degree Difficulty w/ Childcare or Family Care: No Additional living arrangements comments: The patient lives with his of 55 years. 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 Spiritual care concerns: No Meds Home Medications and Allergies Home Medications Medication
--- NOTE | 2022-05-28 17:20 | ADMGEN ---
This patient, Bairon Rodas, was admitted to Medical Room 245. Patient/family oriented to hospital policies and general routines including ID bracelet, bed and alarms, visiting hours, pain management, procedures, bathroom and other care routines, personal items, smoking policy, room service/diet, and visiting hours. Information on how to activate the Rapid Response Team has been discussed. Patient/Family are encouraged to report perceived risks to care and to ask questions if they do not understand what they are told or what they should do.
[2022-05-29] VITALS (16 sets, daily range): BP systolic 95–102; BP diastolic 54–66; PULSE 64–78; RESP 16–20; TEMP 36–36.7; O2SAT 94–98
[2022-05-29] MEDS: SACUBITRIL/VALSARTAN 24-26 MG TABLET 1 TAB PO ×3 (00:53→21:04)
[2022-05-29] MEDS: SIMVASTATIN 20 MG TABLET PO ×2 (00:53→21:04)
[2022-05-29] MEDS: carvediloL 6.25 MG TABLET PO (00:53)
[2022-05-29] MEDS: CLOPIDOGREL BISULFATE 75 MG TABLET PO (00:53)
[2022-05-29 02:17] LABS: Iron 66 ug/dL (49-181)
[2022-05-29 02:22] LABS: Percent Iron Saturation 24 % (20-50)
[2022-05-29] MEDS: guaiFENesin/DEXTROMETHORPHAN 10 ML UDC PO (02:26)
--- NOTE | 2022-05-29 02:33 | PCRCNOTE ---
PT WILL BRING CPAP FROM HOME HE HAS TRIED OURS IN THE PAST AND DONT LIKE
[2022-05-29 04:49] LABS: Folic Acid 9.2 ng/mL (2.76->20)
[2022-05-29 05:13] LABS: Free T4 Free Thyroxine Reflex 1.37 ng/dL (0.78-2.19); Total Triiodothyronine (T3) 0.58 NG/ML (0.97-1.69)
[2022-05-29] MEDS: SPIRONOLACTONE 25 MG TABLET PO (08:41)
[2022-05-29] MEDS: PANTOPRAZOLE 40 MG TABLET PO (08:41)
[2022-05-29] MEDS: carvediloL 3.125 MG TABLET PO ×2 (10:19→21:04)
[2022-05-29] MEDS: FUROSEMIDE INJ 40 MG/4 ML VIAL IV PUSH (10:57)
--- NOTE | 2022-05-29 11:03 | PM.CNCAR ---
Assessment and Plan Assessment and plan (1) Peripheral arterial disease with history of revascularization: Code(s): I73.9 - Peripheral vascular disease, unspecified; Z98.890 - Other specified postprocedural states Status: Acute (2) Acute on chronic systolic heart failure: Code(s): I50.23 - Acute on chronic systolic (congestive) heart failure Status: Acute (3) Heart failure with reduced ejection fraction: Code(s): I50.20 - Unspecified systolic (congestive) heart failure Status: Acute (4) Chronic kidney disease, stage 3: Code(s): N18.30 - Chronic kidney disease, stage 3 unspecified Status: Acute (5) Ischemic cardiomyopathy: Code(s): I25.5 - Ischemic cardiomyopathy Status: Acute (6) Coronary artery disease: Code(s): I25.10 - Atherosclerotic heart disease of [place] coronary artery without angina pectoris Status: Acute Plan Continue with IV diuresis. Monitor strict I/Os. Patient was taking Lasix 40mg BID at home - he may need a higher dose of Lasix upon discharge or can consider Bumex/Torsemide instead of Lasix. Continue with Entresto, Coreg, and Aldactone. Will have his device interrogated. History of Present Illness History of Present Illness Consult date/time: 05/29/22 11:03 Requesting physician: Patricia Hoyt PA-C Consult reason: congestive heart failure Reason For Visit: Fall Narrative: We are being consulted for decompensated heart failure. This is patient of Dr. Stark'naida. He has a history of CAD s/p CABG x 2 in November 1998 at [facility], history of PCI/stenting, HFrEF with severely reduced ejection fraction s/p BiV ICD, PAD, history of AAA repair/aortobifemoral bypass graft. Patient was last admitted here in October 2021 for decompensated heart failure. He presents this time with progressive swelling, especially in his bilateral lower legs. He also reports two falls. He fell forward when bending over to pick something off the floor. He got tripped up and hit his head; sustained a shallow laceration. Denies any lightheadedness/dizziness, palpitations, chest pain or other symptoms prior to fall. ED evaluation showed two negative troponins. BNP elevated at 23,100. CXR showing edema. Patient started in IV Lasix. Review of Systems Review of Systems: 12-point ROS obtained. Negative, unless stated in HPI. [facility] Past Medical History Medical History Abdominal aortic aneurysm (07/1998) Basal cell carcinoma (BCC) of skin of nose Chronic anemia Chronic kidney disease, stage 3 Congestive heart failure Coronary artery disease GI bleed Secondary to colonic angiodysplasias. Heart failure with reduced ejection fraction Ischemic cardiomyopathy Obstructive sleep apnea on CPAP Peripheral arterial disease with history of revascularization Surgical History Surgical History History of abdominal aortic aneurysm repair History of coronary artery bypass graft (1998) History of endarterectomy History of vascular surgery Bilateral lower extremity stents. Status post biventricular cardiac pacemaker insertion Family History Family History Other Acute myocardial infarction Cerebrovascular accident Peripheral vascular disease Social History Social History Social History: Surrogate medical decision maker: Code status: Full code. Smoking packs per day: 2 Smoking cigarettes per day: 40.0 Years smoked: 30 Smoking pack-years: 60.00 Smoking status: Former smoker Alcohol intake: current Drinks per week: 7 Substance use: never Substance use type: does not use Lack of Transportation: No Lack of Food: Never True Current Housing: I Have Housing Concerned About Future Housing: No Difficulty Paying Gas/Electr
--- NOTE | 2022-05-29 11:18 | PM.IMPN ---
Progress Note: A&P Assessment and Plan (1) Acute on chronic systolic CHF (congestive heart failure), NYHA class 4: Code(s): I50.23 - Acute on chronic systolic (congestive) heart failure Status: Acute Assessment and Plan: Acute on chronic exacerbation HFrEF (EF<15% in October 2021). He presented to the emergency department with complaints of falls and increasing shortness of breath. Chest x-ray did show cardiomegaly with mild interstitial edema. His had a 20 lb weight gain since his prior admission. He has ICD/pacemaker He does were endorse taking Lasix 40 mg b.i.d. with occasional missed evening does, however discharge notes from October 2021 showed patient was discharged on 80 mg of p.o. once daily in the morning. Patient may need higher doses of oral Lasix or medication change to Bumex or torsemide if he is unable to tolerate this. Change Lasix to Bumex 1 g IV b.i.d. Continue coreg, entresto and spironolactone at home doses as BP allows. Daily weights and monitor strict I's and O's Aidan wraps and elevate bilateral lower extremities to assist with edema Monitor renal function daily and electrolytes while diuresing Check BNP Cardiology following and appreciate recommendations (2) Fall from ground level: Code(s): W18.30XA - Fall on same level, unspecified, initial encounter Status: Acute Assessment and Plan: He reports positional dizziness that may be contributing to falls. Check orthostatic BP Fall precautions PT OT evaluation (3) Thrombocytopenia: Code(s): D69.6 - Thrombocytopenia, unspecified Status: Acute Assessment and Plan: Platelets noted to be 148 on admission. Unknown etiology, may be reactive. Monitor CBC. patient is on plavix for CAD (4) Chronic kidney disease, stage 3: Qualifiers: Chronic kidney disease stage 3 subtype: stage 3a (GFR 45-59) Qualified Code(s): N18.31 - Chronic kidney disease, stage 3a Code(s): N18.30 - Chronic kidney disease, stage 3 unspecified Status: Chronic Assessment and Plan: Chronic, stable. BUN 49, creatinine 1.5, GFR 46, appears similar to prior hospitalization. Monitor on diuretics. Daily chemistry and electrolytes. Consider consulting Nephrology if worsening renal function with diuresis (5) Chronic anemia: Code(s): D64.9 - Anemia, unspecified Status: Chronic Assessment and Plan: chronic, stable. H/H 12.4/36.4%, appears at baseline Iron panel, ferritin, B12, folate within normal limits No acute bleeding noted (6) Coronary artery disease: Qualifiers: Coronary Disease-Associated Artery/Lesion type: bypass graft [place] vs. transplanted heart: [place] heart Associated angina: without angina Qualified Code(s): I25.810 - Atherosclerosis of coronary artery bypass graft(s) without angina pectoris Code(s): I25.10 - Atherosclerotic heart disease of [place] coronary artery without angina pectoris Status: Chronic Assessment and Plan: Chronic, stable, no active chest pain. History of CABG Continue simvastatin, Plavix, Coreg at home doses (7) Ischemic cardiomyopathy: Code(s): I25.5 - Ischemic cardiomyopathy Status: Chronic Assessment and Plan: As above (8) Obstructive sleep apnea on CPAP: Code(s): G47.33 - Obstructive sleep apnea (adult) (pediatric); Z99.89 - Dependence on other enabling machines and devices Status: Chronic Assessment and Plan: Continue CPAP overnight at home settings (9) Elevated TSH: Code(s): R79.89 - Other specified abnormal findings of blood chemistry Status: Acute Assessment and Plan: TSH 6.16, free T4 1.37 and within normal range, total T3 0.58 patient is admitted to the hospital currently. Recheck thyroid panel in 2 weeks Plan Code status: Full code Disposition: Estimated length of stay more than 3 midnights, plans to discharge home with quintin
[2022-05-29] MEDS: POTASSIUM CHLORIDE 20 MEQ TABLET.ER PO (16:56)
[2022-05-29] MEDS: BUMETANIDE INJ 1 MG/4 ML VIAL IV PUSH (16:56)
[2022-05-30] VITALS (15 sets, daily range): BP systolic 64–101; BP diastolic 24–65; PULSE 69–80; RESP 16–18; TEMP 36.3–36.7; O2SAT 88–100
[2022-05-30 05:55] LABS: Hematocrit 35.5 % (42.0-52.0); Hemoglobin 12.2 g/dL (14.0-18.0); Mean Corpuscular HGB Conc 34.4 g/dl (32-36); Mean Corpuscular Hemoglobin 34.6 pg (26-34); Mean Corpuscular Volume 100.6 fl (80-100); Mean Platelet Volume 11.2 fl (7.4-10.4); Platelet Count Result 124 k/mm3 (150-375); Red Blood Count 3.53 M/mm3 (4.6-6.20); Red Cell Distribution Width 16.7 % (11.5-14.5); White Blood Count 3.8 K/mm3 (4.5-10.0)
[2022-05-30 06:15] LABS: NT Pro B Type Natriuretic Pept > 35000 pg/mL (5-100)
[2022-05-30 06:16] LABS: Alanine Aminotransferase 27 U/L (6-50); Albumin Level 3.1 g/dL (3.5-5.1); Alkaline Phosphatase 133 U/L (38-126); Anion Gap 5 mmol/L (8-16); Aspartate Amino Transferase 41 U/L (17-59); Bilirubin,Total 1.3 mg/dL (0.2-1.3); Blood Urea Nitrogen 49 mg/dL (9-20); Calcium 8.5 mg/dL (8.4-10.2); Carbon Dioxide 30 mmol/L (22-30); Chloride 99 mmol/L (98-107); Estimated CRCL calculation 36 ml/min; Estimated Glomerular Filt Rate 40; Glucose 98 mg/dL (65-110); Magnesium 1.9 mg/dL (1.6-2.3); Potassium 4.4 mmol/L (3.4-5.0); Sodium 134 mmol/L (137-145)
[2022-05-30] MEDS: SACUBITRIL/VALSARTAN 24-26 MG TABLET 1 TAB PO ×2 (08:56→21:22)
[2022-05-30] MEDS: BUMETANIDE INJ 1 MG/4 ML VIAL IV PUSH (08:56)
[2022-05-30] MEDS: carvediloL 3.125 MG TABLET PO ×2 (08:56→21:21)
[2022-05-30] MEDS: POTASSIUM CHLORIDE 20 MEQ TABLET.ER PO ×2 (08:56→16:59)
[2022-05-30] MEDS: PANTOPRAZOLE 40 MG TABLET PO (08:56)
[2022-05-30] MEDS: SPIRONOLACTONE 25 MG TABLET PO (08:57)
--- NOTE | 2022-05-30 11:37 | PM.PNCARD ---
Progress Note: A&P Assessment and Plan (1) Acute on chronic systolic CHF (congestive heart failure), NYHA class 4: Code(s): I50.23 - Acute on chronic systolic (congestive) heart failure Status: Acute (2) Coronary artery disease: Qualifiers: Coronary Disease-Associated Artery/Lesion type: bypass graft [place] vs. transplanted heart: [place] heart Associated angina: without angina Qualified Code(s): I25.810 - Atherosclerosis of coronary artery bypass graft(s) without angina pectoris Code(s): I25.10 - Atherosclerotic heart disease of [place] coronary artery without angina pectoris Status: Chronic (3) Ischemic cardiomyopathy: Code(s): I25.5 - Ischemic cardiomyopathy Status: Chronic (4) Chronic kidney disease, stage 3: Qualifiers: Chronic kidney disease stage 3 subtype: stage 3a (GFR 45-59) Qualified Code(s): N18.31 - Chronic kidney disease, stage 3a Code(s): N18.30 - Chronic kidney disease, stage 3 unspecified Status: Chronic (5) Obstructive sleep apnea on CPAP: Code(s): G47.33 - Obstructive sleep apnea (adult) (pediatric); Z99.89 - Dependence on other enabling machines and devices Status: Chronic (6) Peripheral arterial disease with history of revascularization: Code(s): I73.9 - Peripheral vascular disease, unspecified; Z98.890 - Other specified postprocedural states Status: Chronic Plan Continue with IV diuresis. Monitor strict I/Os. Continue with Entresto, Coreg, and Aldactone. Will have his device interrogated. Subjective Date/time seen: 05/30/22 11:37 Interval history: Reason for visit: Decompensated heart failure HPI: This is patient of Dr. Galindo. He has a history of CAD s/p CABG x 2 in November 1998 at [facility], history of PCI/stenting, HFrEF with severely reduced ejection fraction s/p BiV ICD, PAD, history of AAA repair/aortobifemoral bypass graft. Patient was last admitted here in October 2021 for decompensated heart failure. He presents this time with progressive swelling, especially in his bilateral lower legs. He also reports two falls. He fell forward when bending over to pick something off the floor. He got tripped up and hit his head; sustained a shallow laceration. Denies any lightheadedness/dizziness, palpitations, chest pain or other symptoms prior to fall. ED evaluation showed two negative troponins. BNP elevated at 23,100. CXR showing edema. Patient started on IV Lasix. Date of service 05/30/2022: No acute events overnight. Switched to Bumex. Still volume overloaded. Review of Systems Review of Systems: 12-point ROS obtained. Negative, unless stated in HPI. Exam Const: General: comfortable and no acute distress HENMT: Mouth: Yes moist mucous membranes Eyes: General: appearance normal, both eyes and all related structures Sclera: sclerae normal Neck: Neck: supple Resp: Effort & Inspection: normal respiratory effort Auscultation: crackles and diminished lung sounds Cardio: Rate: regular rate Rhythm: regular rhythm Heart sounds: no murmurs Other: 3+ bilateral edema GI: Inspection: distended GI Palp: Yes Soft to palpation and No Tenderness to palpation present (GI) Skin: General skin exam: normal color Neuro: Speech: normal speech Motor exam (neuro): 5/5 motor strength present throughout Psych: Mental Status: mental status grossly normal Affect: normal affect Objective Data Vital Signs Vital Signs: Vital Signs - 24 hr 05/29/22 12:00 05/29/22 13:10 05/29/22 16:00 Temperature 36.6 C Pulse Rate 71 70 72 Respiratory Rate 16 Blood Pressure 95/54 L Pulse Oximetry 95 Oxygen Delivery 05/29/22 21:04 05/29/22 21:27 05/29/22 20:00 Temperature 36.7 C Pulse Rate 64 69 69 Respiratory Rate 17 Blood Pressure 97/64 L Pulse Oximetry 96 Oxygen Delivery 05/30/22 00:00 05/30/22 04:00 05/30/22 05:00 Temperature 36.6 C Pulse Rate 69 71 76 Respirat
[2022-05-30] MEDS: ONDANSETRON INJ 4 MG/2 ML VIAL IV PUSH (11:40)
--- NOTE | 2022-05-30 12:23 | PM.IMPN ---
Progress Note: A&P Assessment and Plan (1) Acute on chronic systolic CHF (congestive heart failure), NYHA class 4: Code(s): I50.23 - Acute on chronic systolic (congestive) heart failure Status: Acute Assessment and Plan: Acute on chronic exacerbation HFrEF (EF<15% in October 2021). He presented to the emergency department with complaints of falls and increasing shortness of breath. Chest x-ray did show cardiomegaly with mild interstitial edema. His had a 20 lb weight gain since his prior admission. He has ICD/pacemaker He does were endorse taking Lasix 40 mg b.i.d. with occasional missed evening does, however discharge notes from October 2021 showed patient was discharged on 80 mg of p.o. once daily in the morning. Patient may need higher doses of oral Lasix or medication change to Bumex or torsemide if he is unable to tolerate this. Change Lasix to Bumex 1 g IV b.i.d. Continue coreg, entresto and spironolactone at home doses as BP allows. Daily weights and monitor strict I's and O's Aidan wraps and elevate bilateral lower extremities to assist with edema Monitor renal function daily and electrolytes while diuresing BNP >35,000 Cardiology following and appreciate recommendations He had an episode of orthostatic hypotension with SBP 64 standing. Hold evening Bumex. Monitor orthostatic vitals before am diuretic. Apply ELLIOTT hose. The patient is concerned about having a paracentesis. I discussed with the radiologist regarding this and he reported Plavix needs to be held 5 days prior to procedure as he is stable and this is non-emergent. He is scheduled for outpatient paracentesis 06/04/22 (2) Fall from ground level: Code(s): W18.30XA - Fall on same level, unspecified, initial encounter Status: Acute Assessment and Plan: He reports positional dizziness that may be contributing to falls. Check orthostatic BP Fall precautions PT OT evaluation (3) Thrombocytopenia: Code(s): D69.6 - Thrombocytopenia, unspecified Status: Acute Assessment and Plan: Platelets noted to be 148 on admission. Unknown etiology, may be reactive. Monitor CBC. patient is on plavix for CAD (4) Chronic kidney disease, stage 3: Qualifiers: Chronic kidney disease stage 3 subtype: stage 3a (GFR 45-59) Qualified Code(s): N18.31 - Chronic kidney disease, stage 3a Code(s): N18.30 - Chronic kidney disease, stage 3 unspecified Status: Chronic Assessment and Plan: Chronic, stable. BUN 49, creatinine 1.5, GFR 46, appears similar to prior hospitalization. Monitor on diuretics. Daily chemistry and electrolytes. Consider consulting Nephrology if worsening renal function with diuresis Renal function mildly increased. Continue diuresis, but monitor renal function daily (5) Chronic anemia: Code(s): D64.9 - Anemia, unspecified Status: Chronic Assessment and Plan: chronic, stable. H/H 12.4/36.4%, appears at baseline Iron panel, ferritin, B12, folate within normal limits No acute bleeding noted (6) Coronary artery disease: Qualifiers: Associated angina: without angina Coronary Disease-Associated Artery/Lesion type: bypass graft [place] vs. transplanted heart: [place] heart Qualified Code(s): I25.810 - Atherosclerosis of coronary artery bypass graft(s) without angina pectoris Code(s): I25.10 - Atherosclerotic heart disease of [place] coronary artery without angina pectoris Status: Chronic Assessment and Plan: Chronic, stable, no active chest pain. History of CABG Continue simvastatin, Plavix, Coreg at home doses (7) Ischemic cardiomyopathy: Code(s): I25.5 - Ischemic cardiomyopathy Status: Chronic Assessment and Plan: As above (8) Obstructive sleep apnea on CPAP: Code(s): G47.33 - Obstructive sleep apnea (adult) (pediatric); Z99.89 - Dependence on other enabling machines and devices Status: C
--- NOTE | 2022-05-30 13:37 | PC.NURSE ---
On 05/30/22, the student, [Telma Goldberg], provided care and completed [facility] documentation on this patient. I have reviewed the student's documentation and agree with the findings.
[2022-05-30] MEDS: SIMVASTATIN 20 MG TABLET PO (21:22)
[2022-05-30] MEDS: TIZANIDINE HCL 2 MG TABLET PO (21:22)
--- NOTE | 2022-05-30 23:02 | PCRCNOTE ---
PT STATES HE CANNOT WEAR HOSPITAL CPAP; WILL HAVE BRING HIS
[2022-05-31] VITALS (21 sets, daily range): BP systolic 87–106; BP diastolic 45–71; PULSE 67–87; RESP 16–24; TEMP 35.5–36.4; O2SAT 94–98
[2022-05-31 06:13] LABS: Anion Gap 8 mmol/L (8-16); Blood Urea Nitrogen 53 mg/dL (9-20); Calcium 8.6 mg/dL (8.4-10.2); Carbon Dioxide 28 mmol/L (22-30); Chloride 99 mmol/L (98-107); Estimated CRCL calculation 32 ml/min; Estimated Glomerular Filt Rate 35; Glucose 91 mg/dL (65-110); Magnesium 2.1 mg/dL (1.6-2.3); Potassium 5.1 mmol/L (3.4-5.0); Sodium 135 mmol/L (137-145)
--- NOTE | 2022-05-31 07:51 | P.PNIM_ITS ---
Progress Note: A&P Assessment and Plan (1) Acute on chronic systolic CHF (congestive heart failure), NYHA class 4: Code(s): I50.23 - Acute on chronic systolic (congestive) heart failure Status: Acute Assessment and Plan: Acute on chronic exacerbation HFrEF (EF<15% in October 2021). He presented to the emergency department with complaints of falls and increasing shortness of breath. Chest x-ray did show cardiomegaly with mild interstitial edema. His had a 20 lb weight gain since his prior admission. He has ICD/pacemaker * He does were endorse taking Lasix 40 mg b.i.d. with occasional missed evening does, however discharge notes from October 2021 showed patient was discharged on 80 mg of p.o. once daily in the morning. Patient may need higher doses of oral Lasix or medication change to Bumex or torsemide if he is unable to tolerate this. * Changed Lasix to Bumex IV 1 mg. * Continue coreg, entresto and spironolactone at home doses as BP allows. * Daily weights and monitor strict I's and O's * Aidan wraps and elevate bilateral lower extremities to assist with edema * Monitor renal function daily and electrolytes while diuresing * BNP >35,000 * Cardiology following and appreciate recommendations * He had an episode of orthostatic hypotension with SBP 64 standing. Hold evening Bumex. Monitor orthostatic vitals before am diuretic. Apply ELLIOTT hose. * The patient is concerned about having a paracentesis. I discussed with the radiologist regarding this and he reported Plavix needs to be held 5 days prior to procedure as he is stable and this is non-emergent. He is scheduled for outpatient paracentesis 06/04/22 * 05/31 - renal function increased since admission and patient with +orthostatic BP yesterday. Change Bumex 1 mg IV Q24 hours. Continue ELLIOTT hose/aidan wraps BLE. Hold Coreg. Discussed with Cardiology- Entresto and Aldactone continued. (2) Fall from ground level: Code(s): W18.30XA - Fall on same level, unspecified, initial encounter Status: Acute Assessment and Plan: He reports positional dizziness that may be contributing to falls. * Check orthostatic BP * Fall precautions * PT OT evaluation. Plan for discharge to rehab. (3) Thrombocytopenia: Code(s): D69.6 - Thrombocytopenia, unspecified Status: Acute Assessment and Plan: Platelets noted to be 148 on admission. Unknown etiology, may be reactive. * Monitor CBC. * patient is on plavix for CAD. * Monitor CBC. (4) Chronic kidney disease, stage 3: Qualifiers: Chronic kidney disease stage 3 subtype: stage 3a (GFR 45-59) Qualified Code(s): N18.31 - Chronic kidney disease, stage 3a Code(s): N18.30 - Chronic kidney disease, stage 3 unspecified Status: Chronic Assessment and Plan: Chronic, stable. BUN 49, creatinine 1.5, GFR 46, appears similar to prior hospitalization. * Monitor on diuretics. Daily chemistry and electrolytes. * Consider consulting Nephrology if worsening renal function with diuresis * Renal function mildly increased. Continue diuresis, but monitor renal function daily * 05/31/22 Consult Nephrology for assistance with diuretics (5) Chronic anemia: Code(s): D64.9 - Anemia, unspecified Status: Chronic Assessment and Plan: chronic, stable. H/H 12.4/36.4%, appears at baseline * Iron panel, ferritin, B12, folate within normal limits * No acute bleeding noted (6) Coronary artery disease: Qualifiers: Associated angina: without angina Coronary Disease-Associated Artery/Lesion type: bypass graft [place] vs. transplanted heart: [place] heart
--- NOTE | 2022-05-31 07:51 | PM.IMPN ---
Progress Note: A&P Assessment and Plan (1) Acute on chronic systolic CHF (congestive heart failure), NYHA class 4: Code(s): I50.23 - Acute on chronic systolic (congestive) heart failure Status: Acute Assessment and Plan: Acute on chronic exacerbation HFrEF (EF<15% in October 2021). He presented to the emergency department with complaints of falls and increasing shortness of breath. Chest x-ray did show cardiomegaly with mild interstitial edema. His had a 20 lb weight gain since his prior admission. He has ICD/pacemaker He does were endorse taking Lasix 40 mg b.i.d. with occasional missed evening does, however discharge notes from October 2021 showed patient was discharged on 80 mg of p.o. once daily in the morning. Patient may need higher doses of oral Lasix or medication change to Bumex or torsemide if he is unable to tolerate this. Changed Lasix to Bumex IV 1 mg. Continue coreg, entresto and spironolactone at home doses as BP allows. Daily weights and monitor strict I's and O's Aidan wraps and elevate bilateral lower extremities to assist with edema Monitor renal function daily and electrolytes while diuresing BNP >35,000 Cardiology following and appreciate recommendations He had an episode of orthostatic hypotension with SBP 64 standing. Hold evening Bumex. Monitor orthostatic vitals before am diuretic. Apply ELLIOTT hose. The patient is concerned about having a paracentesis. I discussed with the radiologist regarding this and he reported Plavix needs to be held 5 days prior to procedure as he is stable and this is non-emergent. He is scheduled for outpatient paracentesis 06/04/2205/31 - renal function increased since admission and patient with +orthostatic BP yesterday. Change Bumex 1 mg IV Q24 hours. Continue ELLIOTT hose/aidan wraps BLE. Hold Coreg. Discussed with Cardiology- Entresto and Aldactone continued. (2) Fall from ground level: Code(s): W18.30XA - Fall on same level, unspecified, initial encounter Status: Acute Assessment and Plan: He reports positional dizziness that may be contributing to falls. Check orthostatic BP Fall precautions PT OT evaluation. Plan for discharge to rehab. (3) Thrombocytopenia: Code(s): D69.6 - Thrombocytopenia, unspecified Status: Acute Assessment and Plan: Platelets noted to be 148 on admission. Unknown etiology, may be reactive. Monitor CBC. patient is on plavix for CAD. Monitor CBC. (4) Chronic kidney disease, stage 3: Qualifiers: Chronic kidney disease stage 3 subtype: stage 3a (GFR 45-59) Qualified Code(s): N18.31 - Chronic kidney disease, stage 3a Code(s): N18.30 - Chronic kidney disease, stage 3 unspecified Status: Chronic Assessment and Plan: Chronic, stable. BUN 49, creatinine 1.5, GFR 46, appears similar to prior hospitalization. Monitor on diuretics. Daily chemistry and electrolytes. Consider consulting Nephrology if worsening renal function with diuresis Renal function mildly increased. Continue diuresis, but monitor renal function daily 05/31/22 Consult Nephrology for assistance with diuretics (5) Chronic anemia: Code(s): D64.9 - Anemia, unspecified Status: Chronic Assessment and Plan: chronic, stable. H/H 12.4/36.4%, appears at baseline Iron panel, ferritin, B12, folate within normal limits No acute bleeding noted (6) Coronary artery disease: Qualifiers: Associated angina: without angina Coronary Disease-Associated Artery/Lesion type: bypass graft [place] vs. transplanted heart: [place] heart Qualified Code(s): I25.810 - Atherosclerosis of coronary artery bypass graft(s) without angina pectoris Code(s): I25.10 - Atherosclerotic heart disease of [place] coronary artery without angina pectoris Status: Chronic Assessment and Plan: Chronic, stable, no active chest pain. History of CABG Continue simvastatin, Plavix, Coreg at h
[2022-05-31] MEDS: carvediloL 3.125 MG TABLET PO (09:13)
[2022-05-31] MEDS: SACUBITRIL/VALSARTAN 24-26 MG TABLET 1 TAB PO ×2 (09:13→21:37)
--- NOTE | 2022-05-31 09:41 | PM.PNCARD ---
Progress Note: A&P Assessment and Plan (1) Acute on chronic systolic CHF (congestive heart failure), NYHA class 4: Code(s): I50.23 - Acute on chronic systolic (congestive) heart failure Status: Acute (2) Coronary artery disease: Qualifiers: Associated angina: without angina Coronary Disease-Associated Artery/Lesion type: bypass graft [place] vs. transplanted heart: [place] heart Qualified Code(s): I25.810 - Atherosclerosis of coronary artery bypass graft(s) without angina pectoris Code(s): I25.10 - Atherosclerotic heart disease of [place] coronary artery without angina pectoris Status: Chronic (3) Ischemic cardiomyopathy: Code(s): I25.5 - Ischemic cardiomyopathy Status: Chronic (4) Chronic kidney disease, stage 3: Qualifiers: Chronic kidney disease stage 3 subtype: stage 3a (GFR 45-59) Qualified Code(s): N18.31 - Chronic kidney disease, stage 3a Code(s): N18.30 - Chronic kidney disease, stage 3 unspecified Status: Chronic (5) Obstructive sleep apnea on CPAP: Code(s): G47.33 - Obstructive sleep apnea (adult) (pediatric); Z99.89 - Dependence on other enabling machines and devices Status: Chronic (6) Peripheral arterial disease with history of revascularization: Code(s): I73.9 - Peripheral vascular disease, unspecified; Z98.890 - Other specified postprocedural states Status: Chronic Plan Slow improvement with IV diuresis Continue with IV diuresis. Bumex decreased today (BUN/Cr increased today) Monitor strict I/Os. Daily weights Fluid restriction Continue with Entresto, Coreg, and Aldactone Subjective Date/time seen: 05/31/22 09:41 Cardiology follow up for CHF, cardiomyopathy He's feeling better today. Still has significant edema. No shortness of breath or chest pain. Review of Systems Review of Systems: All systems reviewed & are unremarkable except as noted in HPI and below Exam Const: General: comfortable and no acute distress HENMT: Mouth: Yes moist mucous membranes Other: Laceration noted on forehead. Eyes: General: appearance normal, both eyes and all related structures Sclera: sclerae normal Neck: Neck: supple Resp: Effort & Inspection: normal respiratory effort Auscultation: crackles and diminished lung sounds Cardio: Rate: regular rate Rhythm: regular rhythm Heart sounds: no murmurs Other: 2-3+ bilateral edema GI: Inspection: distended Skin: General skin exam: normal color Other: erythema on L forearm. Skin tear R forearm wrapped with gauze Neuro: Speech: normal speech Motor exam (neuro): 5/5 motor strength present throughout Psych: Mental Status: mental status grossly normal Affect: normal affect Objective Data Vital Signs Vital Signs: Vital Signs - 24 hr 05/30/22 16:52 05/30/22 12:00 05/30/22 20:27 Temperature 36.3 C L Pulse Rate 74 71 70 Respiratory Rate 16 18 Blood Pressure 64/24 L 93/63 L Pulse Oximetry 88 L 99 05/30/22 21:21 05/30/22 21:31 05/30/22 20:00 Temperature 36.7 C Pulse Rate 72 72 70 Respiratory Rate 18 Blood Pressure 99/63 L Pulse Oximetry 100 05/31/22 00:00 05/31/22 04:00 05/31/22 04:40 Temperature 36.3 C L Pulse Rate 70 71 72 Respiratory Rate 18 Blood Pressure 100/58 L Pulse Oximetry 94 05/31/22 04:43 05/31/22 04:46 05/31/22 05:15 Temperature 36.4 C 36.3 C L 36.3 C L Pulse Rate 87 85 72 Respiratory Rate 18 18 18 Blood Pressure 98/58 L 91/59 L 100/58 L Pulse Oximetry 94 95 94 05/31/22 09:13 05/31/22 09:20 05/31/22 09:21 Temperature Pulse Rate 70 Respiratory Rate Blood Pressure 93/55 L 103/71 Pulse Oximetry 05/31/22 09:21 Temperature Pulse Rate Respiratory Rate Blood Pressure 106/69 Pulse Oximetry Intake/Output Intake/Output: Intake & Output 05/28/22 05/29/22 05/30/22 05/31/22 23:59 23:59 23:59 23:59 Intake Total 240 1030 890 150 Output Total 450 700 400 500 B
--- NOTE | 2022-05-31 13:14 | PC.NURSE ---
On 05/31/22, the student, [April Carroll], provided care and completed [facility] documentation on this patient. I have reviewed the student's documentation and agree with the findings.
[2022-05-31] MEDS: SIMVASTATIN 20 MG TABLET PO (21:37)
[2022-05-31] MEDS: TIZANIDINE HCL 2 MG TABLET PO (23:11)
[2022-06-01] VITALS (14 sets, daily range): BP systolic 93–108; BP diastolic 64–71; PULSE 69–84; RESP 18–28; TEMP 35.4–36.4; O2SAT 95–99
[2022-06-01 06:21] LABS: Hematocrit 35.9 % (42.0-52.0); Hemoglobin 12.1 g/dL (14.0-18.0); Mean Corpuscular HGB Conc 33.7 g/dl (32-36); Mean Corpuscular Hemoglobin 35.5 pg (26-34); Mean Corpuscular Volume 105.3 fl (80-100); Mean Platelet Volume 11.2 fl (7.4-10.4); Platelet Count Result 117 k/mm3 (150-375); Red Blood Count 3.41 M/mm3 (4.6-6.20); Red Cell Distribution Width 17.2 % (11.5-14.5)
[2022-06-01 09:08] LABS: Anion Gap 8 mmol/L (8-16); Blood Urea Nitrogen 55 mg/dL (9-20); Calcium 8.7 mg/dL (8.4-10.2); Carbon Dioxide 24 mmol/L (22-30); Chloride 99 mmol/L (98-107); Estimated CRCL calculation 32 ml/min; Estimated Glomerular Filt Rate 35; Glucose 100 mg/dL (65-110); Magnesium 2.1 mg/dL (1.6-2.3); Potassium 5.7 mmol/L (3.4-5.0); Sodium 131 mmol/L (137-145)
--- NOTE | 2022-06-01 09:22 | PM.IMPN ---
Progress Note: A&P Assessment and Plan (1) Acute on chronic systolic CHF (congestive heart failure), NYHA class 4: Code(s): I50.23 - Acute on chronic systolic (congestive) heart failure Status: Acute Assessment and Plan: Acute on chronic exacerbation HFrEF (EF<15% in October 2021). He presented to the emergency department with complaints of falls and increasing shortness of breath. Chest x-ray did show cardiomegaly with mild interstitial edema. His had a 20 lb weight gain since his prior admission. He has ICD/pacemaker He does were endorse taking Lasix 40 mg b.i.d. with occasional missed evening does, however discharge notes from October 2021 showed patient was discharged on 80 mg of p.o. once daily in the morning. Patient may need higher doses of oral Lasix or medication change to Bumex or torsemide if he is unable to tolerate this. Changed Lasix to Bumex IV 1 mg. holding coreg, entresto and spironolactone for low BP Daily weights and monitor strict I's and O's - appear inaccurate, but net is positive. Aidan wraps and elevate bilateral lower extremities to assist with edema BNP >35,000 Cardiology following and appreciate recommendations 05/30/22 He had an episode of orthostatic hypotension with SBP 64 standing. Hold evening Bumex. Monitor orthostatic vitals before am diuretic. Apply ELLIOTT hose. The patient is concerned about having a paracentesis. I discussed with the radiologist regarding this and he reported Plavix needs to be held 5 days prior to procedure as he is stable and this is non-emergent. He is scheduled for outpatient paracentesis 06/04/2205/31 - renal function increased since admission and patient with +orthostatic BP yesterday. Change Bumex 1 mg IV Q24 hours. Continue ELLIOTT hose/aidan wraps BLE. Hold Coreg. Discussed with Cardiology- Entresto and Aldactone continued. 06/01/22 Renal function minimal change from yesterday. K 5.7. Hold Entresto and Spironolactone. Low potassium diet. Was treated with Bumex. Cardiology following and plans to transfer to IMU for dobutamine gtt. (2) Fall from ground level: Code(s): W18.30XA - Fall on same level, unspecified, initial encounter Status: Acute Assessment and Plan: He reports positional dizziness that may be contributing to falls. Monitor orthostatic BP and place ELLIOTT hose Fall precautions PT OT evaluation. Plan for discharge to rehab. (3) Thrombocytopenia: Code(s): D69.6 - Thrombocytopenia, unspecified Status: Acute Assessment and Plan: Platelets noted to be 148 on admission. Unknown etiology, may be reactive. Monitor CBC. patient is on plavix for CAD, but this is being held for paracentesis. Monitor CBC. (4) Chronic kidney disease, stage 3: Qualifiers: Chronic kidney disease stage 3 subtype: stage 3a (GFR 45-59) Qualified Code(s): N18.31 - Chronic kidney disease, stage 3a Code(s): N18.30 - Chronic kidney disease, stage 3 unspecified Status: Chronic Assessment and Plan: Chronic, stable. BUN 49, creatinine 1.5, GFR 46, appears similar to prior hospitalization. Monitor on diuretics. Daily chemistry and electrolytes. Consider consulting Nephrology if worsening renal function with diuresis Renal function mildly increased. Continue diuresis, but monitor renal function daily 05/31/22 Consult Nephrology for assistance with diuretics 06/01/22 sodium 131. Asymptomatic. Monitor BMP daily. (5) Chronic anemia: Code(s): D64.9 - Anemia, unspecified Status: Chronic Assessment and Plan: chronic, stable. H/H 12.4/36.4%, appears at baseline Iron panel, ferritin, B12, folate within normal limits No acute bleeding noted (6) Coronary artery disease: Qualifiers: Associated angina: without angina Coronary Disease-Associated Artery/Lesion type: bypass graft [place] vs. transplanted heart: [place] heart Qualified Code(s): I25.810 - Atherosclerosis of coronary artery
[2022-06-01] MEDS: BUMETANIDE INJ 1 MG/4 ML VIAL IV PUSH (09:25)
--- NOTE | 2022-06-01 12:51 | PM.CNNEP ---
Assessment and Plan Assessment and plan (1) MORAIMA (acute kidney injury): Code(s): N17.9 - Acute kidney failure, unspecified Status: Acute Assessment and Plan: likely worsened by diuretic therapy and CHF exacerbation concerning that urine output suboptimal with diuresis as well follow repeat labs and UOP (2) Stage 3b chronic kidney disease: Code(s): N18.32 - Chronic kidney disease, stage 3b Status: Chronic Assessment and Plan: creatinine has been running ~ 1.3 - 1.6mg/dl in the last 6 months (October 2021) likely due to his CAD, DEBBIE, vascular disease and cardiorenal syndrome (decreased perfusion to kidneys due to depressed EF leading to chronic prerenal azotemia worsened by the necessity of diuretic therapy to maintain/achieve euvolemia) (3) Acute on chronic systolic heart failure: Code(s): I50.23 - Acute on chronic systolic (congestive) heart failure Status: Acute Assessment and Plan: as evidenced by presentation and issues to date Cardiology following no improvement with conservative therapy complicated by worsening renal dysfunction as well benefit to use of dobutamine (?) -- this has helped the patient in past this might also improve renal function as well (better perfusion to his kidneys) would defer to Cardiology regarding this intervention (4) Hyperkalemia: Code(s): E87.5 - Hyperkalemia Status: Acute Assessment and Plan: due to MORAIMA, entresto, and spironolactone follow trend of K+ (5) Ascites: Code(s): R18.8 - Other ascites Status: Chronic Assessment and Plan: chronic issue scheduled for paracentesis next week (outpatient) may consider doing this as an inpatient if possible (6) Chronic anemia: Code(s): D64.9 - Anemia, unspecified Status: Chronic Assessment and Plan: likely due to MORAIMA, CKD, and acute illness no need for ESAs follow H/H Long extensive discussion (> 20 minures) with regard to the patient's renal dysfunction in conjunction with his acute on chronic systolic heart failure. The patient is well aware of the issues related to this as he has been in this situation before. Hopefully, with ongoing efforts to optimize his cardiac function, his renal function will eventually improve as well there by promoting optimization of his overall volume status. Will continue to follow. History of Present Illness Reason for Consult Consult date: 06/01/22 Reason for consult: acute renal failure (on chronic kidney disease) Chief Complaint Chief complaint: Fall History of Present Illness Narrative: The patient is a very pleasant 76-year-old male with extensive past medical history as outlined below who presented to [facility] Emergency room via EMS for further evaluation of shortness of breath and falling. According the patient, he has had two separate falls in the last 24 hr prior to his presentation to the ER. The night before admission, he fell forward while bending over to pick remover something and on the day of admission, he lost his balance and tripped over issues and fell forward striking his head on the ground. He denies any other significant in her dreams other than a small laceration on his right frontal forehead. No reported loss of consciousness, chest pain nausea vomiting both prior to or after his fall. Further complicating matters is that he reports a 20 lb weight gain over last several months which she is so CH with fluid retention given increasing lower extremity edema and abdominal bloating. He does also mention that he has noticed increasing shortness of breath with less and less exertional activities as well. Given all of these issues and the aforementioned falls, he presented to [facility] Emergency room via EMS for further assessment. Workup and evaluation the emergency room demonstrated the patient to be hemodynamically stable. His right forehead la
--- NOTE | 2022-06-01 12:58 | PM.PNCARD ---
Progress Note: A&P Assessment and Plan (1) Acute on chronic systolic CHF (congestive heart failure), NYHA class 4: Code(s): I50.23 - Acute on chronic systolic (congestive) heart failure Status: Acute Assessment and Plan: Patient clinically is not responding acceptably to a diuresis. Renal function slowly declining, inadequate urine output, symptomatic orthostatic hypotension necessitating hold with medical therapy. Bumex reduced due to renal function yet clinically he is worsening. Clinical exam and objective changes concerning for end-organ hypoperfusion. Discussed inotrope therapy with patient at length. Patient states he benefit in the past. Will initiate Dobutamine 2.5 microgram/kilogram per minute. Transfer to IMU. Patient verbalized understanding and agreed. He was very appreciative of this recommendation. Accurate input and output, daily weights. Prognosis is poor high risk for SCD due to VT/VF. He has a BiV ICD. Depending on response to treatment further discussion for palliative therapy options and/or referral to [facility] failure [facility] at [place] recommended. Continue telemetry. Attempts to resume Entresto, spironolactone as renal function stabilizes and BP permits. Hold carvedilol until such time dobutamine is discontinued. (2) Coronary artery disease: Qualifiers: Associated angina: without angina Coronary Disease-Associated Artery/Lesion type: bypass graft [place] vs. transplanted heart: [place] heart Qualified Code(s): I25.810 - Atherosclerosis of coronary artery bypass graft(s) without angina pectoris Code(s): I25.10 - Atherosclerotic heart disease of [place] coronary artery without angina pectoris Status: Chronic Assessment and Plan: No clear anginal symptoms. Continue medical therapy. Clopidogrel remains on hold for possible paracentesis. (3) Ischemic cardiomyopathy: Code(s): I25.5 - Ischemic cardiomyopathy Status: Chronic Assessment and Plan: Severe LV systolic dysfunction EF 15% end-stage cardiomyopathy. (4) Chronic kidney disease, stage 3: Qualifiers: Chronic kidney disease stage 3 subtype: stage 3a (GFR 45-59) Qualified Code(s): N18.31 - Chronic kidney disease, stage 3a Code(s): N18.30 - Chronic kidney disease, stage 3 unspecified Status: Chronic Assessment and Plan: Mild acute on chronic renal insufficiency secondary to hypoperfusion low cardiac output. (5) Obstructive sleep apnea on CPAP: Code(s): G47.33 - Obstructive sleep apnea (adult) (pediatric); Z99.89 - Dependence on other enabling machines and devices Status: Chronic Assessment and Plan: Continue compliance with therapy. (6) Peripheral arterial disease with history of revascularization: Code(s): I73.9 - Peripheral vascular disease, unspecified; Z98.890 - Other specified postprocedural states Status: Chronic Assessment and Plan: No new issues. Statin therapy. Subjective Date/time seen: Date of service:06/01/22 12:58 Interval history: Reason for visit: Decompensated heart failure HPI: This is patient of Dr. Stark's. He has a history of CAD s/p CABG x 2 in November 1998 at [facility], history of PCI/stenting, HFrEF with severely reduced ejection fraction s/p BiV ICD, PAD, history of AAA repair/aortobifemoral bypass graft. Patient was last admitted here in October 2021 for decompensated heart failure. He presents this time with progressive swelling, especially in his bilateral lower legs. He also reports two falls. He fell forward when bending over to pick something off the floor. He got tripped up and hit his head; sustained a shallow laceration. Denies any lightheadedness/dizziness, palpitations, chest pain or other symptoms prior to fall. ED evaluation showed two negative troponins. BNP elevated at 23,100. CXR showing edema. Patient started on IV Lasix. 05/30/2022: No acute events overnight. Switched to Bumex.
[2022-06-01] MEDS: DOBUTamine 250 MG/D5W 250 ML 250 MG/250 ML BAG 13.88 MG IV CONT (14:57)
[2022-06-01 15:05] LABS: Potassium 4.6 mmol/L (3.4-5.0)
[2022-06-01] MEDS: SIMVASTATIN 20 MG TABLET PO (21:26)
[2022-06-01] MEDS: HEPARIN SODIUM 5,000 UNITS/ML VIAL 5000 UNITS SUB-Q (21:27)
[2022-06-01] MEDS: TIZANIDINE HCL 2 MG TABLET PO (21:28)
[2022-06-02] VITALS (17 sets, daily range): BP systolic 100–119; BP diastolic 60–76; PULSE 70–89; RESP 20; TEMP 35.2–36.6; O2SAT 91–100
[2022-06-02 05:15] LABS: Hematocrit 38.2 % (42.0-52.0); Hemoglobin 12.7 g/dL (14.0-18.0); Immature Platelet Fraction Pct 6.9 % (0.9-11.2); Mean Corpuscular HGB Conc 33.2 g/dl (32-36); Mean Corpuscular Hemoglobin 35.6 pg (26-34); Mean Platelet Volume 11.2 fl (7.4-10.4); Platelet Count Result 111 k/mm3 (150-375); Red Blood Count 3.57 M/mm3 (4.6-6.20); Red Cell Distribution Width 17.2 % (11.5-14.5)
[2022-06-02 05:28] LABS: Anion Gap 6 mmol/L (8-16); Blood Urea Nitrogen 53 mg/dL (9-20); Calcium 8.5 mg/dL (8.4-10.2); Carbon Dioxide 25 mmol/L (22-30); Chloride 99 mmol/L (98-107); Estimated CRCL calculation 34 ml/min; Estimated Glomerular Filt Rate 37; Glucose 92 mg/dL (65-110); Magnesium 2.1 mg/dL (1.6-2.3); Potassium 4.5 mmol/L (3.4-5.0); Sodium 130 mmol/L (137-145)
--- NOTE | 2022-06-02 08:07 | PM.IMPN ---
Progress Note: A&P Assessment and Plan (1) Acute on chronic systolic CHF (congestive heart failure), NYHA class 4: Code(s): I50.23 - Acute on chronic systolic (congestive) heart failure Status: Acute Assessment and Plan: Acute on chronic exacerbation HFrEF (EF<15% in October 2021). He presented to the emergency department with complaints of falls and increasing shortness of breath. Chest x-ray did show cardiomegaly with mild interstitial edema. His had a 20 lb weight gain since his prior admission. He has ICD/pacemaker He does were endorse taking Lasix 40 mg b.i.d. with occasional missed evening does, however discharge notes from October 2021 showed patient was discharged on 80 mg of p.o. once daily in the morning. Patient may need higher doses of oral Lasix or medication change to Bumex or torsemide if he is unable to tolerate this. Changed Lasix to Bumex IV 1 mg. holding coreg, entresto and spironolactone for low BP Daily weights and monitor strict I's and O's - appear inaccurate, but net is positive. Aidan wraps and elevate bilateral lower extremities to assist with edema BNP >35,000 Cardiology following and appreciate recommendations 05/30/22 He had an episode of orthostatic hypotension with SBP 64 standing. Hold evening Bumex. Monitor orthostatic vitals before am diuretic. Apply ELLIOTT hose. The patient is concerned about having a paracentesis. I discussed with the radiologist regarding this and he reported Plavix needs to be held 5 days prior to procedure as he is stable and this is non-emergent. He is scheduled for outpatient paracentesis 06/04/2205/31 - renal function increased since admission and patient with +orthostatic BP yesterday. Change Bumex 1 mg IV Q24 hours. Continue ELLIOTT hose/aidan wraps BLE. Hold Coreg. Discussed with Cardiology- Entresto and Aldactone continued. 06/01/22 Renal function minimal change from yesterday. K 5.7. Hold Entresto and Spironolactone. Low potassium diet. Was treated with Bumex. Cardiology following and plans to transfer to IMU for dobutamine gtt. 06/02/22 Continued on dobutamine gtt and cardiology management. Entresto, spironolactone and coreg on hold. K 4.6 and improved with holding medications. (2) Fall from ground level: Code(s): W18.30XA - Fall on same level, unspecified, initial encounter Status: Acute Assessment and Plan: He reports positional dizziness that may be contributing to falls. vitals and BLE ELLIOTT hose Fall precautions PT OT evaluation. Plan for discharge to rehab. (3) Thrombocytopenia: Code(s): D69.6 - Thrombocytopenia, unspecified Status: Acute Assessment and Plan: Platelets noted to be 148 on admission. Unknown etiology, may be reactive. Monitor CBC. patient is on plavix for CAD, but this is being held for paracentesis. Monitor CBC. (4) Chronic kidney disease, stage 3: Qualifiers: Chronic kidney disease stage 3 subtype: stage 3a (GFR 45-59) Qualified Code(s): N18.31 - Chronic kidney disease, stage 3a Code(s): N18.30 - Chronic kidney disease, stage 3 unspecified Status: Chronic Assessment and Plan: Chronic, stable. BUN 49, creatinine 1.5, GFR 46, appears similar to prior hospitalization. Monitor on diuretics. Daily chemistry and electrolytes. Consider consulting Nephrology if worsening renal function with diuresis Renal function mildly increased. Continue diuresis, but monitor renal function daily 05/31/22 Consult Nephrology for assistance with diuretics 06/01/22 sodium 131. Asymptomatic. Monitor BMP daily. 06/02/22 sodium 130. secondary to diuresis. Nephrology following and will defer to them for further intervention. (5) Chronic anemia: Code(s): D64.9 - Anemia, unspecified Status: Chronic Assessment and Plan: chronic, stable. H/H 12.4/36.4%, appears at baseline Iron panel, ferritin, B12, folate within normal limits No acute bleeding noted (6) Coronar
--- NOTE | 2022-06-02 08:25 | PCPTNOTE ---
pt was moved from regular floor to IMU due to medicine change and required monitoring. Continue PT treatment as per plan of care.
[2022-06-02] MEDS: BUMETANIDE INJ 1 MG/4 ML VIAL IV PUSH (08:55)
[2022-06-02] MEDS: DOBUTamine 250 MG/D5W 250 ML 250 MG/250 ML BAG 13.88 MG IV CONT (08:59)
[2022-06-02] MEDS: HEPARIN SODIUM 5,000 UNITS/ML VIAL 5000 UNITS SUB-Q ×2 (08:59→21:03)
--- NOTE | 2022-06-02 11:16 | PM.PNNEP ---
Progress Note: A&P Assessment and Plan (1) MORAIMA (acute kidney injury): Code(s): N17.9 - Acute kidney failure, unspecified Status: Acute Assessment and Plan: likely worsened by diuretic therapy and acute CHF exacerbation stability if not improvement noted with initiation of dobutamine follow repeat labs and UOP (2) Stage 3b chronic kidney disease: Code(s): N18.32 - Chronic kidney disease, stage 3b Status: Chronic Assessment and Plan: creatinine has been running ~ 1.3 - 1.6mg/dl in the last 6 months (October 2021) likely due to his CAD, DEBBIE, vascular disease and cardiorenal syndrome (decreased perfusion to kidneys due to depressed EF leading to chronic prerenal azotemia worsened by the necessity of diuretic therapy to maintain/achieve euvolemia) (3) Acute on chronic systolic heart failure: Code(s): I50.23 - Acute on chronic systolic (congestive) heart failure Status: Acute Assessment and Plan: as evidenced by presentation and issues to date Cardiology following no improvement with conservative therapy further complicated by worsening renal dysfunction as well improvement noted with inotropic support (dobutamine) continue current therapy (4) Hyperkalemia: Code(s): E87.5 - Hyperkalemia Status: Acute Assessment and Plan: stable at this time due to MORAIMA, entresto, and spironolactone entresto and spironolactone on hold currently follow trend of K+ (5) Ascites: Code(s): R18.8 - Other ascites Status: Chronic Assessment and Plan: chronic issue scheduled for paracentesis next week (outpatient) may consider doing this as an inpatient if possible (6) Chronic anemia: Code(s): D64.9 - Anemia, unspecified Status: Chronic Assessment and Plan: likely due to MORAIMA, CKD, and acute illness no need for ESAs follow H/H Will continue to follow. Subjective Date/time seen: 06/02/22 11:16 Transferred to IMU and initiated on dobutamine gtt yesterday afternoon; overall, he states he feels significantly better with more energy in association with improvement in his breathing and increased urine output; no other acute issues/events overnight or earlier this morning. Exam Narrative: General: WD/WN male in NAD Heart: normal S1 and S2; no rub Lungs: decreased/diminished at the bases Abdomen: soft, nontender, nondistended, positive bowel sounds; + ascites Extremities: no cyanosis or clubbing; 2 - 3+ edema Skin: warm and dry Objective Data Vital Signs Vital Signs: Vital Signs Temp Pulse Resp BP Pulse Ox O2 Del Method 06/02/22 10:00 95.3 F L 84 20 100/62 91 06/02/22 08:00 77 06/02/22 08:58 77 06/02/22 04:00 70 06/02/22 02:54 97.8 F 75 20 105/68 99 06/02/22 00:00 70 06/02/22 00:36 97.7 F 83 20 101/76 98 06/01/22 20:00 73 06/01/22 20:00 Room Air 06/01/22 15:00 97.5 F L 71 20 97/71 L 99 06/01/22 17:00 77 28 H 97/71 L 99 06/01/22 16:00 77 06/01/22 14:57 73 97/71 L Intake/Output Intake/Output: Intake & Output 05/30/22 05/31/22 06/01/22 06/02/22 23:59 23:59 23:59 23:59 Intake Total 890 1430 1240 970 Output Total 613 822 1760 1000 Balance 490 630 90 -30 Meds/Results Medications: Active Medications Generic Name Dose Route Start Last Admin Trade Name Freq PRN Reason Stop Dose Admin Bumetanide 1 mg 06/01/22 09:00 06/02/22 08:55 Bumetanide Inj 1 Mg/4 Ml Vial IV PUSH 1 mg QAM ESDRAS Administration Carvedilol 3.125 mg 05/29/22 09:00 05/31/22 09:13 Carvedilol 3.125 Mg Tablet PO 3.125 mg Q12HR ESDRAS Administration Clopidogrel Bisulfate 75 mg 05/29/22 00:10 05/29/22 00:53 Clopidogrel Bisulfate 75 Mg Tablet PO 75 mg HS ESDRAS Administration Famotidine 10 mg 06/01/22 16:13 Famotidine 10 Mg Tablet PO Q12HR PRN Indigestion Guaifenesin/Dextromethorp
--- NOTE | 2022-06-02 11:16 | P.PNNP_ITS ---
Progress Note: A&P Assessment and Plan (1) MORAIMA (acute kidney injury): Code(s): N17.9 - Acute kidney failure, unspecified Status: Acute Assessment and Plan: * likely worsened by diuretic therapy and acute CHF exacerbation * stability if not improvement noted with initiation of dobutamine * follow repeat labs and UOP (2) Stage 3b chronic kidney disease: Code(s): N18.32 - Chronic kidney disease, stage 3b Status: Chronic Assessment and Plan: * creatinine has been running ~ 1.3 - 1.6mg/dl in the last 6 months (October 2021) * likely due to his CAD, DEBBIE, vascular disease and cardiorenal syndrome (decreased perfusion to kidneys due to depressed EF leading to chronic prerenal azotemia worsened by the necessity of diuretic therapy to maintain/achieve euvolemia) (3) Acute on chronic systolic heart failure: Code(s): I50.23 - Acute on chronic systolic (congestive) heart failure Status: Acute Assessment and Plan: * as evidenced by presentation and issues to date * Cardiology following * no improvement with conservative therapy * further complicated by worsening renal dysfunction as well * improvement noted with inotropic support (dobutamine) * continue current therapy (4) Hyperkalemia: Code(s): E87.5 - Hyperkalemia Status: Acute Assessment and Plan: * stable at this time * due to MORAIMA, entresto, and spironolactone * entresto and spironolactone on hold currently * follow trend of K+ (5) Ascites: Code(s): R18.8 - Other ascites Status: Chronic Assessment and Plan: * chronic issue * scheduled for paracentesis next week (outpatient) * may consider doing this as an inpatient if possible (6) Chronic anemia: Code(s): D64.9 - Anemia, unspecified Status: Chronic Assessment and Plan: * likely due to MORAIMA, CKD, and acute illness * no need for ESAs * follow H/H Will continue to follow. Subjective Date/time seen: 06/02/22 11:16 Transferred to IMU and initiated on dobutamine gtt yesterday afternoon; overall, he states he feels significantly better with more energy in association with improvement in his breathing and increased urine output; no other acute issues/events overnight or earlier this morning. Exam Narrative: General: WD/WN male in NAD Heart: normal S1 and S2; no rub Lungs: decreased/diminished at the bases Abdomen: soft, nontender, nondistended, positive bowel sounds; + ascites Extremities: no cyanosis or clubbing; 2 - 3+ edema Skin: warm and dry Objective Data Vital Signs Vital Signs: Vital Signs Temp Pulse Resp BP Pulse Ox O2 Del Method 06/02/22 10:00 95.3 F L 84 20 100/62 91 06/02/22 08:00 77 06/02/22 08:58 77 06/02/22 04:00 70 06/02/22 02:54 97.8 F 75 20 105/68 99 06/02/22 00:00 70 06/02/22 00:36 97.7 F 83 20 101/76 98 06/01/22 20:00 73 06/01/22 20:00 Room Air 06/01/22 15:00 97.5 F L 71 20 97/71 L 99 06/01/22 17:00 77 28 H 97/71 L 99 06/01/22 16:00 77 06/01/22 14:57 73 97/71 L Intake/Output Intake/Output: Intake & Output 05/30/22 05/31/22 06/01/22 06/02/22 23:59 23:59 23:59 23:59 Intake [place]
--- NOTE | 2022-06-02 12:29 | PM.PNCARD ---
Progress Note: A&P Assessment and Plan (1) Acute on chronic systolic CHF (congestive heart failure), NYHA class 4: Code(s): I50.23 - Acute on chronic systolic (congestive) heart failure Status: Acute Assessment and Plan: Acute on chronic heart failure with reduced ejection fraction EF 15%. NYHA class IV, stage D. Patient clinically is not responding acceptably to diuresis without inotropes with clinical exam and objective changes concerning for end-organ hypoperfusion. Prognosis is poor high risk for SCD due to VT/VF. He has a BiV ICD. Depending on response to treatment further discussion for palliative therapy options and/or referral to Heart failure Clinic at [facility]. -Continue accurate input and output, daily weights. -Continue telemetry. -Attempt to resume Entresto, spironolactone as renal function stabilizes and BP permits. Hold carvedilol until such time dobutamine is discontinued. -Continue dobutamine 2.5 microgram/kilogram per minute. Patient clinically improving. Monitor urine output, renal function, blood pressure. Monitor hyponatremia. (2) Coronary artery disease: Qualifiers: Coronary Disease-Associated Artery/Lesion type: bypass graft [place] vs. transplanted heart: [place] heart Associated angina: without angina Qualified Code(s): I25.810 - Atherosclerosis of coronary artery bypass graft(s) without angina pectoris Code(s): I25.10 - Atherosclerotic heart disease of [place] coronary artery without angina pectoris Status: Chronic Assessment and Plan: No clear anginal symptoms. Continue medical therapy. Clopidogrel remains on hold for possible paracentesis. (3) Ischemic cardiomyopathy: Code(s): I25.5 - Ischemic cardiomyopathy Status: Chronic Assessment and Plan: Severe LV systolic dysfunction EF 15% end-stage cardiomyopathy. (4) Chronic kidney disease, stage 3: Qualifiers: Chronic kidney disease stage 3 subtype: stage 3a (GFR 45-59) Qualified Code(s): N18.31 - Chronic kidney disease, stage 3a Code(s): N18.30 - Chronic kidney disease, stage 3 unspecified Status: Chronic Assessment and Plan: Mild acute on chronic renal insufficiency secondary to hypoperfusion low cardiac output. (5) Obstructive sleep apnea on CPAP: Code(s): G47.33 - Obstructive sleep apnea (adult) (pediatric); Z99.89 - Dependence on other enabling machines and devices Status: Chronic Assessment and Plan: Continue compliance with therapy. (6) Peripheral arterial disease with history of revascularization: Code(s): I73.9 - Peripheral vascular disease, unspecified; Z98.890 - Other specified postprocedural states Status: Chronic Assessment and Plan: No new issues. Statin therapy. Subjective Date/time seen: Date of service: 06/02/22 12:29 Interval history: Reason for visit: Decompensated heart failure HPI: This is patient of Dr. Stark's. He has a history of CAD s/p CABG x 2 in November 1998 at [facility], history of PCI/stenting, HFrEF with severely reduced ejection fraction s/p BiV ICD, PAD, history of AAA repair/aortobifemoral bypass graft. Patient was last admitted here in October 2021 for decompensated heart failure. He presents this time with progressive swelling, especially in his bilateral lower legs. He also reports two falls. He fell forward when bending over to pick something off the floor. He got tripped up and hit his head; sustained a shallow laceration. Denies any lightheadedness/dizziness, palpitations, chest pain or other symptoms prior to fall. ED evaluation showed two negative troponins. BNP elevated at 23,100. CXR showing edema. Patient started on IV Lasix. 05/30/2022: No acute events overnight. Switched to Bumex. Still volume overloaded. 06/01/2022: Patient states he is feeling worse today. Dizzy with any position change even sitting upright in bed. His more fatigued more amy
[2022-06-02] MEDS: SIMVASTATIN 20 MG TABLET PO (21:03)
[2022-06-02] MEDS: TIZANIDINE HCL 2 MG TABLET PO (21:04)
[2022-06-03] VITALS (21 sets, daily range): BP systolic 94–139; BP diastolic 61–87; PULSE 71–100; RESP 18–20; TEMP 36.1–36.7; O2SAT 93–100
[2022-06-03] MEDS: DOBUTamine 250 MG/D5W 250 ML 250 MG/250 ML BAG 13.88 MG IV CONT ×2 (03:32→20:41)
[2022-06-03 05:37] LABS: Hematocrit 34.7 % (42.0-52.0); Hemoglobin 11.6 g/dL (14.0-18.0); Mean Corpuscular HGB Conc 33.4 g/dl (32-36); Mean Corpuscular Hemoglobin 34.8 pg (26-34); Mean Corpuscular Volume 104.2 fl (80-100); Platelet Count Result 105 k/mm3 (150-375); Red Blood Count 3.33 M/mm3 (4.6-6.20); Red Cell Distribution Width 17.2 % (11.5-14.5); White Blood Count 3.4 K/mm3 (4.5-10.0)
[2022-06-03 05:46] LABS: Anion Gap 5 mmol/L (8-16); Blood Urea Nitrogen 48 mg/dL (9-20); Calcium 8.6 mg/dL (8.4-10.2); Carbon Dioxide 29 mmol/L (22-30); Chloride 100 mmol/L (98-107); Estimated CRCL calculation 38 ml/min; Estimated Glomerular Filt Rate 42; Glucose 116 mg/dL (65-110); Potassium 4.4 mmol/L (3.4-5.0); Sodium 134 mmol/L (137-145)
--- NOTE | 2022-06-03 10:13 | PM.IMPN ---
Progress Note: A&P Assessment and Plan (1) Acute on chronic systolic CHF (congestive heart failure), NYHA class 4: Code(s): I50.23 - Acute on chronic systolic (congestive) heart failure Status: Acute Assessment and Plan: Acute on chronic exacerbation HFrEF (EF<15% in October 2021). He presented to the emergency department with complaints of falls and increasing shortness of breath. Chest x-ray did show cardiomegaly with mild interstitial edema. His had a 20 lb weight gain since his prior admission. He has ICD/pacemaker He does were endorse taking Lasix 40 mg b.i.d. with occasional missed evening does, however discharge notes from October 2021 showed patient was discharged on 80 mg of p.o. once daily in the morning. Patient may need higher doses of oral Lasix or medication change to Bumex or torsemide if he is unable to tolerate this. Changed Lasix to Bumex IV 1 mg. holding coreg, entresto and spironolactone for low BP Daily weights and monitor strict I's and O's - appear inaccurate, but net is positive. Aidan wraps and elevate bilateral lower extremities to assist with edema BNP >35,000 Cardiology following and appreciate recommendations 05/30/22 He had an episode of orthostatic hypotension with SBP 64 standing. Hold evening Bumex. Monitor orthostatic vitals before am diuretic. Apply ELLIOTT hose. The patient is concerned about having a paracentesis. I discussed with the radiologist regarding this and he reported Plavix needs to be held 5 days prior to procedure as he is stable and this is non-emergent. He is scheduled for outpatient paracentesis 06/04/2205/31 - renal function increased since admission and patient with +orthostatic BP yesterday. Change Bumex 1 mg IV Q24 hours. Continue ELLIOTT hose/aidan wraps BLE. Hold Coreg. Discussed with Cardiology- Entresto and Aldactone continued. 06/01/22 Renal function minimal change from yesterday. K 5.7. Hold Entresto and Spironolactone. Low potassium diet. Was treated with Bumex. Cardiology following and plans to transfer to IMU for dobutamine gtt. 06/02/22 Continued on dobutamine gtt and cardiology management. Entresto, spironolactone and coreg on hold. K 4.6 and improved with holding medications. 06/03/22 ultrasound-guided paracenteses ordered. Was scheduled for paracentesis 06/04. Last Plavix given 05/29 0032. I&O shows at 640 mL. Weight unchanged from the previous Day (2) Fall from ground level: Code(s): W18.30XA - Fall on same level, unspecified, initial encounter Status: Acute Assessment and Plan: He reports positional dizziness that may be contributing to falls. vitals and BLE ELLIOTT hose Fall precautions PT OT evaluation. Plan for discharge to rehab. (3) Thrombocytopenia: Code(s): D69.6 - Thrombocytopenia, unspecified Status: Acute Assessment and Plan: Platelets noted to be 148 on admission. Unknown etiology, may be reactive. Monitor CBC. patient is on plavix for CAD, but this is being held for paracentesis. Monitor CBC. Holding heparin for paracentesis. (4) Chronic kidney disease, stage 3: Qualifiers: Chronic kidney disease stage 3 subtype: stage 3a (GFR 45-59) Qualified Code(s): N18.31 - Chronic kidney disease, stage 3a Code(s): N18.30 - Chronic kidney disease, stage 3 unspecified Status: Chronic Assessment and Plan: Chronic, stable. BUN 49, creatinine 1.5, GFR 46, appears similar to prior hospitalization. Monitor on diuretics. Daily chemistry and electrolytes. Consider consulting Nephrology if worsening renal function with diuresis Renal function mildly increased. Continue diuresis, but monitor renal function daily 05/31/22 Consult Nephrology for assistance with diuretics 06/01/22 sodium 131. Asymptomatic. Monitor BMP daily. 06/02/22 sodium 130. secondary to diuresis. Nephrology following and will defer to them for further intervention. (5) Chronic anemia: Code(s): D64.9 - Anem
[2022-06-03] MEDS: BUMETANIDE INJ 1 MG/4 ML VIAL IV PUSH ×2 (10:17→18:15)
[2022-06-03 11:15] LABS: INR 1.3; Prothrombin Time 15.4 Seconds (11.1-14.7)
[2022-06-03 11:16] LABS: Partial Thromboplastin Time 38.1 SECONDS (22.3-36.8)
--- NOTE | 2022-06-03 12:00 | PM.PNCARD ---
Progress Note: A&P Assessment and Plan (1) Acute on chronic systolic CHF (congestive heart failure), NYHA class 4: Code(s): I50.23 - Acute on chronic systolic (congestive) heart failure Status: Acute Assessment and Plan: Acute on chronic heart failure with reduced ejection fraction EF 15%. NYHA class IV, stage D. Patient clinically is not responding acceptably to diuresis without inotropes with clinical exam and objective changes concerning for end-organ hypoperfusion. Prognosis is poor high risk for SCD due to VT/VF. He has a BiV ICD. Depending on response to treatment further discussion for palliative therapy options and/or referral to Heart failure Clinic at [place] recommended. -Continue accurate input and output, daily weights. -Continue telemetry. -Attempt to resume Entresto, spironolactone as renal function stabilizes and BP permits. Hold carvedilol until such time dobutamine is discontinued. -Continue dobutamine 2.5 microgram/kilogram per minute. Patient clinically improving, but slowly. Monitor urine output accurately, renal function, blood pressure. Monitor hyponatremia. Increase Bumex to 1 mg b.i.d.. Caution if significant fluid removal with paracentesis to avoid fluid shifts and ensuing hypotension. Will monitor status closely in this regard. Discussed with the patient who verbalized understanding. Resume clopidogrel post paracentesis. As an outpatient, he is to follow-up with the [facility] for palliative care options given is his cardiomyopathy, repeat hospitalization for decompensated heart failure requiring inotrope support. (2) Coronary artery disease: Qualifiers: Coronary Disease-Associated Artery/Lesion type: bypass graft [place] vs. transplanted heart: [place] heart Associated angina: without angina Qualified Code(s): I25.810 - Atherosclerosis of coronary artery bypass graft(s) without angina pectoris Code(s): I25.10 - Atherosclerotic heart disease of [place] coronary artery without angina pectoris Status: Chronic Assessment and Plan: No clear anginal symptoms. Continue medical therapy. Clopidogrel remains on hold for possible paracentesis. Will resume postprocedure. (3) Ischemic cardiomyopathy: Code(s): I25.5 - Ischemic cardiomyopathy Status: Chronic Assessment and Plan: Severe LV systolic dysfunction EF 15% end-stage cardiomyopathy. (4) Chronic kidney disease, stage 3: Qualifiers: Chronic kidney disease stage 3 subtype: stage 3a (GFR 45-59) Qualified Code(s): N18.31 - Chronic kidney disease, stage 3a Code(s): N18.30 - Chronic kidney disease, stage 3 unspecified Status: Chronic Assessment and Plan: Mild acute on chronic renal insufficiency secondary to hypoperfusion low cardiac output. (5) Obstructive sleep apnea on CPAP: Code(s): G47.33 - Obstructive sleep apnea (adult) (pediatric); Z99.89 - Dependence on other enabling machines and devices Status: Chronic Assessment and Plan: Continue compliance with therapy. (6) Peripheral arterial disease with history of revascularization: Code(s): I73.9 - Peripheral vascular disease, unspecified; Z98.890 - Other specified postprocedural states Status: Chronic Assessment and Plan: No new issues. Statin therapy. Subjective Date/time seen: Date of service: 06/03/22 12:00 Interval history: Reason for visit: Decompensated heart failure, ischemic cardiomyopathy HPI: This is patient of Dr. Stark's. He has a history of CAD s/p CABG x 2 in November 1998 at [facility], history of PCI/stenting, HFrEF with severely reduced ejection fraction s/p BiV ICD, PAD, history of AAA repair/aortobifemoral bypass graft. Patient was last admitted here in October 2021 for decompensated heart failure. He presents this time with progressive swelling, especially in his bilateral lower legs. He also reports two falls. He fell forwa
--- NOTE | 2022-06-03 16:15 | P.PNNP_ITS ---
Progress Note: A&P Assessment and Plan (1) MORAIMA (acute kidney injury): Code(s): N17.9 - Acute kidney failure, unspecified Status: Acute Assessment and Plan: * likely worsened by diuretic therapy and acute CHF exacerbation * the patient may have renal venous hypertension * he is on dobutamine now. * Creatinine has improved and urine output has improved as well (2) Stage 3b chronic kidney disease: Code(s): N18.32 - Chronic kidney disease, stage 3b Status: Chronic Assessment and Plan: * creatinine has been running ~ 1.3 - 1.6mg/dl in the last 6 months (October 2021) * likely due to his CAD, DEBBIE, vascular disease and cardiorenal syndrome (decreased perfusion to kidneys due to depressed EF leading to chronic prerenal azotemia worsened by the necessity of diuretic therapy to maintain/achieve euvolemia) (3) Acute on chronic systolic heart failure: Code(s): I50.23 - Acute on chronic systolic (congestive) heart failure Status: Acute Assessment and Plan: * as evidenced by presentation and issues to date * Cardiology following * Improved symptoms with Dobutamine * continue this at 2.5. (4) Hyperkalemia: Code(s): E87.5 - Hyperkalemia Status: Acute Assessment and Plan: * stable at this time * due to MORAIMA, entresto, and spironolactone * entresto and spironolactone on hold currently * follow trend of K+ (5) Ascites: Code(s): R18.8 - Other ascites Status: Chronic Assessment and Plan: * chronic issue * Likely due to his heart issues * Patient had paracentesis today. (6) Chronic anemia: Code(s): D64.9 - Anemia, unspecified Status: Chronic Assessment and Plan: * likely due to MORAIMA, CKD, and acute illness * no need for ESAs * hemoglobin above 11 Subjective Date/time seen: 06/03/22 16:15 Interval history: Johny is feeling about the same. Lying flat in bed. Not short of breath. He does have some swelling. Exam Narrative: General: WD/WN male in NAD Heart: normal S1 and S2; no rub Lungs: decreased/diminished breath sounds at the bases Abdomen: soft, nontender, nondistended, positive bowel sounds; + ascites Extremities: no cyanosis or clubbing; 2 - 3+ edema Skin: no rash Objective Data Vital Signs Vital Signs: Vital Signs - 24 hr 06/02/22 16:47 06/02/22 17:00 06/02/22 18:57 Temperature 95.5 F L 95.5 F L Pulse Rate 80 80 Respiratory Rate 20 20 Blood Pressure 101/71 101/71 103/69 Pulse Oximetry 91 91 Oxygen Delivery 06/02/22 18:57 06/02/22 20:34 06/02/22 20:00 Temperature 97.2 F L Pulse Rate 84 84 Respiratory Rate 20 20 Blood Pressure 119/71 103/75 Pulse Oximetry 100 100 Oxygen Delivery Room Air 06/02/22 20:00 06/02/22 22:00 06/02/22 23:42 Temperature 97.5 F L Pulse Rate 89 86 80 Respiratory Rate 20 Blood Pressure 104/60 Pulse Oximetry 99 Oxygen Delivery 06/03/22 00:00 06/03/22 00:00 06/03/22 03:32 Temperature Pulse Rate 71 71 90 Respiratory Rate 20 Blood Pressure Pulse Oximetry 99 Oxygen Delivery Room Air 12
--- NOTE | 2022-06-03 16:15 | PM.PNNEP ---
Progress Note: A&P Assessment and Plan (1) MORAIMA (acute kidney injury): Code(s): N17.9 - Acute kidney failure, unspecified Status: Acute Assessment and Plan: likely worsened by diuretic therapy and acute CHF exacerbation the patient may have renal venous hypertension he is on dobutamine now. Creatinine has improved and urine output has improved as well (2) Stage 3b chronic kidney disease: Code(s): N18.32 - Chronic kidney disease, stage 3b Status: Chronic Assessment and Plan: creatinine has been running ~ 1.3 - 1.6mg/dl in the last 6 months (October 2021) likely due to his CAD, DEBBIE, vascular disease and cardiorenal syndrome (decreased perfusion to kidneys due to depressed EF leading to chronic prerenal azotemia worsened by the necessity of diuretic therapy to maintain/achieve euvolemia) (3) Acute on chronic systolic heart failure: Code(s): I50.23 - Acute on chronic systolic (congestive) heart failure Status: Acute Assessment and Plan: as evidenced by presentation and issues to date Cardiology following Improved symptoms with Dobutamine continue this at 2.5. (4) Hyperkalemia: Code(s): E87.5 - Hyperkalemia Status: Acute Assessment and Plan: stable at this time due to MORAIMA, entresto, and spironolactone entresto and spironolactone on hold currently follow trend of K+ (5) Ascites: Code(s): R18.8 - Other ascites Status: Chronic Assessment and Plan: chronic issue Likely due to his heart issues Patient had paracentesis today. (6) Chronic anemia: Code(s): D64.9 - Anemia, unspecified Status: Chronic Assessment and Plan: likely due to MORAIMA, CKD, and acute illness no need for ESAs hemoglobin above 11 Subjective Date/time seen: 06/03/22 16:15 Interval history: Johny is feeling about the same. Lying flat in bed. Not short of breath. He does have some swelling. Exam Narrative: General: WD/WN male in NAD Heart: normal S1 and S2; no rub Lungs: decreased/diminished breath sounds at the bases Abdomen: soft, nontender, nondistended, positive bowel sounds; + ascites Extremities: no cyanosis or clubbing; 2 - 3+ edema Skin: no rash Objective Data Vital Signs Vital Signs: Vital Signs - 24 hr 06/02/22 16:47 06/02/22 17:00 06/02/22 18:57 Temperature 95.5 F L 95.5 F L Pulse Rate 80 80 Respiratory Rate 20 20 Blood Pressure 101/71 101/71 103/69 Pulse Oximetry 91 91 Oxygen Delivery 06/02/22 18:57 06/02/22 20:34 06/02/22 20:00 Temperature 97.2 F L Pulse Rate 84 84 Respiratory Rate 20 20 Blood Pressure 119/71 103/75 Pulse Oximetry 100 100 Oxygen Delivery Room Air 06/02/22 20:00 06/02/22 22:00 06/02/22 23:42 Temperature 97.5 F L Pulse Rate 89 86 80 Respiratory Rate 20 Blood Pressure 104/60 Pulse Oximetry 99 Oxygen Delivery 06/03/22 00:00 06/03/22 00:00 06/03/22 03:32 Temperature Pulse Rate 71 71 90 Respiratory Rate 20 Blood Pressure Pulse Oximetry 99 Oxygen Delivery Room Air 06/03/22 04:00 06/03/22 04:00 06/03/22 04:36 Temperature 97.2 F L Pulse Rate 71 71 77 Respiratory Rate 20 20 Blood Pressure 118/76 Pulse Oximetry 99 99 Oxygen Delivery Room Air 06/03/22 06:00 06/03/22 08:00 06/03/22 08:00 Temperature 96.9 F L Pulse Rate 80 91 76 Respiratory Rate 20 Blood Pressure 119/77 Pulse Oximetry 95 Oxygen Delivery 06/03/22 08:00 06/03/22 12:00 06/03/22 12:30 Temperature 97.2 F L Pulse Rate 76 80 Respiratory Rate 20 18 Blood Pressure 101/65 Pulse Oximetry 95 93 Oxygen Delivery Room Air Room Air 06/03/22 15:04 Temperature Pulse Rate Respiratory Rate Blood Pressure Pulse Oximetry 95 Oxygen Delivery Room Air Intake/Output Intake/Output: Intake & Output 05/31/22 06/01/22 06/02/22 06/03/22 23:59 23:59 23:59 23:59 Intake Total 0990 1240 14
[2022-06-03] MEDS: TIZANIDINE HCL 2 MG TABLET PO (20:42)
[2022-06-03] MEDS: SIMVASTATIN 20 MG TABLET PO (20:42)
[2022-06-04] VITALS (18 sets, daily range): BP systolic 95–106; BP diastolic 54–77; PULSE 77–101; RESP 16–20; TEMP 36.2–36.6; O2SAT 84–100
[2022-06-04 06:57] LABS: Hematocrit 34.1 % (42.0-52.0); Hemoglobin 11.6 g/dL (14.0-18.0); Mean Corpuscular Hemoglobin 34.9 pg (26-34); Mean Corpuscular Volume 102.7 fl (80-100); Mean Platelet Volume 10.7 fl (7.4-10.4); Platelet Count Result 120 k/mm3 (150-375); Red Blood Count 3.32 M/mm3 (4.6-6.20); Red Cell Distribution Width 17.2 % (11.5-14.5); White Blood Count 3.3 K/mm3 (4.5-10.0)
[2022-06-04 07:12] LABS: Alanine Aminotransferase 22 U/L (6-50); Albumin Level 2.8 g/dL (3.5-5.1); Alkaline Phosphatase 105 U/L (38-126); Anion Gap 5 mmol/L (8-16); Aspartate Amino Transferase 34 U/L (17-59); Bilirubin,Total 1.5 mg/dL (0.2-1.3); Blood Urea Nitrogen 39 mg/dL (9-20); Calcium 8.4 mg/dL (8.4-10.2); Carbon Dioxide 28 mmol/L (22-30); Chloride 97 mmol/L (98-107); Estimated CRCL calculation 46 ml/min; Estimated Glomerular Filt Rate 54; Glucose 88 mg/dL (65-110); Potassium 3.8 mmol/L (3.4-5.0); Sodium 130 mmol/L (137-145)
[2022-06-04] MEDS: BUMETANIDE INJ 1 MG/4 ML VIAL IV PUSH ×2 (09:35→17:11)
--- NOTE | 2022-06-04 10:34 | PM.PNCARD ---
Progress Note: A&P Assessment and Plan (1) Acute on chronic systolic CHF (congestive heart failure), NYHA class 4: Code(s): I50.23 - Acute on chronic systolic (congestive) heart failure Status: Acute Assessment and Plan: Acute on chronic heart failure with reduced ejection fraction EF 15%. NYHA class IV, stage D. Diuresis improving with adition od dobutamine. Depending on response to treatment further discussion for palliative therapy options and/or referral to Heart failure Clinic at [facility]. -Continue accurate input and output, daily weights. -Continue telemetry. -Attempt to resume Entresto, spironolactone as renal function stabilizes and BP permits. Hold carvedilol until such time dobutamine is discontinued. -Continue dobutamine 2.5 microgram/kilogram per minute. Patient clinically improving, but slowly. Monitor urine output accurately, renal function, blood pressure. Monitor hyponatremia. -Continue Bumex to 1 mg b.i.d.. BP stable -ELLIOTT didi As an outpatient, he is to follow-up with the [facility] for palliative care options given is his cardiomyopathy, repeat hospitalization for decompensated heart failure requiring inotrope support. (2) Coronary artery disease: Qualifiers: Associated angina: without angina Coronary Disease-Associated Artery/Lesion type: bypass graft [place] vs. transplanted heart: [place] heart Qualified Code(s): I25.810 - Atherosclerosis of coronary artery bypass graft(s) without angina pectoris Code(s): I25.10 - Atherosclerotic heart disease of [place] coronary artery without angina pectoris Status: Chronic Assessment and Plan: No clear anginal symptoms. Continue medical therapy. Resume clopidogrel (3) Ischemic cardiomyopathy: Code(s): I25.5 - Ischemic cardiomyopathy Status: Chronic Assessment and Plan: Severe LV systolic dysfunction EF 15% end-stage cardiomyopathy. (4) Chronic kidney disease, stage 3: Qualifiers: Chronic kidney disease stage 3 subtype: stage 3a (GFR 45-59) Qualified Code(s): N18.31 - Chronic kidney disease, stage 3a Code(s): N18.30 - Chronic kidney disease, stage 3 unspecified Status: Chronic Assessment and Plan: Mild acute on chronic renal insufficiency secondary to hypoperfusion low cardiac output. (5) Obstructive sleep apnea on CPAP: Code(s): G47.33 - Obstructive sleep apnea (adult) (pediatric); Z99.89 - Dependence on other enabling machines and devices Status: Chronic Assessment and Plan: Continue compliance with therapy. (6) Peripheral arterial disease with history of revascularization: Code(s): I73.9 - Peripheral vascular disease, unspecified; Z98.890 - Other specified postprocedural states Status: Chronic Assessment and Plan: No new issues. Statin therapy. Subjective Date/time seen: 06/04/22 10:34 Cardiology follow up for cardiomyopathy, CHF Continues to improve with IV diuresis. Still has significant LE edema. No shortness of breath. Upper extremity edema is improving. S/p paracentesis yesterday with 2.1L fluid removed. Review of Systems Review of Systems: All systems reviewed & are unremarkable except as noted in HPI and below Constitutional: Constitutional: Reports as per HPI and Reports no additional constitutional complaints Eyes: Eyes: Reports as per HPI and Reports no additional eye complaints ENT: Reports system reviewed and no additional complaints, except as documented and Reports as per HPI Cardiovascular: Cardiovascular: Reports as per HPI and Reports no additional cardiovascular complaints Respiratory: Respiratory: Reports as per HPI and Reports no additional respiratory complaints Gastrointestinal: Gastrointestinal: Reports as per HPI and Reports no additional gastrointestinal complaints Genitourinary: Genitourinary: Reports no additional male genitourinary complaints and Reports as
--- NOTE | 2022-06-04 16:28 | PM.IMPN ---
Progress Note: A&P Assessment and Plan (1) Acute on chronic systolic CHF (congestive heart failure), NYHA class 4: Code(s): I50.23 - Acute on chronic systolic (congestive) heart failure Status: Acute Assessment and Plan: Acute on chronic exacerbation HFrEF (EF<15% in October 2021). He presented to the emergency department with complaints of falls and increasing shortness of breath. Chest x-ray did show cardiomegaly with mild interstitial edema. His had a 20 lb weight gain since his prior admission. He has ICD/pacemaker He does were endorse taking Lasix 40 mg b.i.d. with occasional missed evening does, however discharge notes from October 2021 showed patient was discharged on 80 mg of p.o. once daily in the morning. Patient may need higher doses of oral Lasix or medication change to Bumex or torsemide if he is unable to tolerate this. Changed Lasix to Bumex IV 1 mg. holding coreg, entresto and spironolactone for low BP Daily weights and monitor strict I's and O's - appear inaccurate, but net is positive. Aidan wraps and elevate bilateral lower extremities to assist with edema BNP >35,000 Cardiology following and appreciate recommendations 05/30/22 He had an episode of orthostatic hypotension with SBP 64 standing. Hold evening Bumex. Monitor orthostatic vitals before am diuretic. Apply ELLIOTT hose. The patient is concerned about having a paracentesis. I discussed with the radiologist regarding this and he reported Plavix needs to be held 5 days prior to procedure as he is stable and this is non-emergent. He is scheduled for outpatient paracentesis 06/04/2205/31 - renal function increased since admission and patient with +orthostatic BP yesterday. Change Bumex 1 mg IV Q24 hours. Continue ELLIOTT hose/aidan wraps BLE. Hold Coreg. Discussed with Cardiology- Entresto and Aldactone continued. 06/01/22 Renal function minimal change from yesterday. K 5.7. Hold Entresto and Spironolactone. Low potassium diet. Was treated with Bumex. Cardiology following and plans to transfer to IMU for dobutamine gtt. 06/02/22 Continued on dobutamine gtt and cardiology management. Entresto, spironolactone and coreg on hold. K 4.6 and improved with holding medications. 06/03/22 ultrasound-guided paracenteses ordered. Was scheduled for paracentesis 06/04. Last Plavix given 05/29 0032. I&O shows at 640 mL. Weight unchanged from the previous Day 06/04/22 weights fluctuant 92.8 kg today. I/O -2770 mL. continued on dobutamine drip per cardiology. Plavix renewed post-paracentesis today. His renal function is improved and Entresto was resumed. Repeat BMP and consider restarting spironolactone if still stable. (2) Fall from ground level: Code(s): W18.30XA - Fall on same level, unspecified, initial encounter Status: Acute Assessment and Plan: He reports positional dizziness that may be contributing to falls. vitals and BLE ELLIOTT hose Fall precautions PT OT evaluation. Plan for discharge to rehab at [facility]. His is currently hospitalized as well. (3) Thrombocytopenia: Code(s): D69.6 - Thrombocytopenia, unspecified Status: Acute Assessment and Plan: Platelets noted to be 148 on admission. Unknown etiology, may be reactive. Monitor CBC. patient is on plavix for CAD, but this is being held for paracentesis. Monitor CBC. Holding heparin post- paracentesis. Resume tomorrow if platelets stable. (4) Chronic kidney disease, stage 3: Qualifiers: Chronic kidney disease stage 3 subtype: stage 3a (GFR 45-59) Qualified Code(s): N18.31 - Chronic kidney disease, stage 3a Code(s): N18.30 - Chronic kidney disease, stage 3 unspecified Status: Chronic Assessment and Plan: Chronic, stable. BUN 49, creatinine 1.5, GFR 46, appears similar to prior hospitalization. Monitor on diuretics. Daily chemistry and electrolytes. Consider consulting Nephrology if worsening renal function with diuresis
--- NOTE | 2022-06-04 19:36 | P.PNNP_ITS ---
Progress Note: A&P Assessment and Plan (1) MORAIMA (acute kidney injury): Code(s): N17.9 - Acute kidney failure, unspecified Status: Acute Assessment and Plan: * likely due to renal venous hypertension * he is on dobutamine now. * better perfusion of kidneys and lower central venous pressures. * Creatinine has improved down to 1.3 * urine output up to 3500. (2) Stage 3b chronic kidney disease: Code(s): N18.32 - Chronic kidney disease, stage 3b Status: Chronic Assessment and Plan: * creatinine has been running ~ 1.3 - 1.6mg/dl in the last 6 months (October 2021) * parenchymal disease not as much to do with this as the hemodynamics. (3) Acute on chronic systolic heart failure: Code(s): I50.23 - Acute on chronic systolic (congestive) heart failure Status: Acute Assessment and Plan: * as evidenced by presentation and issues to date * Cardiology following * Improved symptoms with Dobutamine * continue this at 2.5. (4) Hyperkalemia: Code(s): E87.5 - Hyperkalemia Status: Acute Assessment and Plan: * stable at this time * due to MORAIMA, entresto, and spironolactone * entresto and spironolactone on hold currently * follow trend of K+ (5) Ascites: Code(s): R18.8 - Other ascites Status: Chronic Assessment and Plan: * chronic issue * Likely due to his heart issues * Patient had paracentesis and 2100 removed (6) Chronic anemia: Code(s): D64.9 - Anemia, unspecified Status: Chronic Assessment and Plan: * likely due to MORAIMA, CKD, and acute illness * no need for ESAs * hemoglobin above 11 Subjective Date/time seen: 06/04/22 19:36 Interval history: 06/03 Johny is feeling about the same. Lying flat in bed. Not short of breath. He does have some swelling. 06/04 Pt is alert. up in a chair. some swelling still breathing much better. Exam Narrative: General: WD/WN male in NAD Heart: normal S1 and S2; no rub Lungs: dfew crackles at the bases. Abdomen: soft, nontender, nondistended, positive bowel sounds; + ascites Extremities: no cyanosis or clubbing; 2 - 3+ edema Skin: no rash or sq nodules Objective Data Vital Signs Vital Signs: Vital Signs - 24 hr 06/03/22 20:31 06/03/22 20:41 06/03/22 20:00 Temperature 97.2 F L Pulse Rate 91 93 93 Respiratory Rate 20 20 Blood Pressure 139/87 Pulse Oximetry 97 97 Oxygen Delivery Room Air 06/03/22 20:00 06/03/22 22:00 06/03/22 23:30 Temperature 98.1 F Pulse Rate 100 96 89 Respiratory Rate 20 Blood Pressure 109/61 Pulse Oximetry 100 Oxygen Delivery 06/04/22 00:00 06/04/22 00:00 06/04/22 02:00 Temperature Pulse Rate 83 83 77 Respiratory Rate 20 Blood Pressure Pulse Oximetry 100 Oxygen Delivery Room Air 06/04/22 04:00 06/04/22 04:00 06/04/22 06:00 Temperature Pulse Rate 91 91 90 Respiratory Rate 20 Blood Pressure Pulse Oximetry 100 Oxygen Delivery Room Air 06/04/22 07:00 06/04/22 08:00 06/04/22 10:00 Temperature 97.8 F
--- NOTE | 2022-06-04 19:36 | PM.PNNEP ---
Progress Note: A&P Assessment and Plan (1) MORAIMA (acute kidney injury): Code(s): N17.9 - Acute kidney failure, unspecified Status: Acute Assessment and Plan: likely due to renal venous hypertension he is on dobutamine now. better perfusion of kidneys and lower central venous pressures. Creatinine has improved down to 1.3 urine output up to 3500. (2) Stage 3b chronic kidney disease: Code(s): N18.32 - Chronic kidney disease, stage 3b Status: Chronic Assessment and Plan: creatinine has been running ~ 1.3 - 1.6mg/dl in the last 6 months (October 2021) parenchymal disease not as much to do with this as the hemodynamics. (3) Acute on chronic systolic heart failure: Code(s): I50.23 - Acute on chronic systolic (congestive) heart failure Status: Acute Assessment and Plan: as evidenced by presentation and issues to date Cardiology following Improved symptoms with Dobutamine continue this at 2.5. (4) Hyperkalemia: Code(s): E87.5 - Hyperkalemia Status: Acute Assessment and Plan: stable at this time due to MORAIMA, entresto, and spironolactone entresto and spironolactone on hold currently follow trend of K+ (5) Ascites: Code(s): R18.8 - Other ascites Status: Chronic Assessment and Plan: chronic issue Likely due to his heart issues Patient had paracentesis and 2100 removed (6) Chronic anemia: Code(s): D64.9 - Anemia, unspecified Status: Chronic Assessment and Plan: likely due to MORAIMA, CKD, and acute illness no need for ESAs hemoglobin above 11 Subjective Date/time seen: 06/04/22 19:36 Interval history: 06/03 Johny is feeling about the same. Lying flat in bed. Not short of breath. He does have some swelling. 06/04 Pt is alert. up in a chair. some swelling still breathing much better. Exam Narrative: General: WD/WN male in NAD Heart: normal S1 and S2; no rub Lungs: dfew crackles at the bases. Abdomen: soft, nontender, nondistended, positive bowel sounds; + ascites Extremities: no cyanosis or clubbing; 2 - 3+ edema Skin: no rash or sq nodules Objective Data Vital Signs Vital Signs: Vital Signs - 24 hr 06/03/22 20:31 12/05/22 20:41 06/03/22 20:00 Temperature 97.2 F L Pulse Rate 91 93 93 Respiratory Rate 20 20 Blood Pressure 139/87 Pulse Oximetry 97 97 Oxygen Delivery Room Air 06/03/22 20:00 06/03/22 22:00 06/03/22 23:30 Temperature 98.1 F Pulse Rate 100 96 89 Respiratory Rate 20 Blood Pressure 109/61 Pulse Oximetry 100 Oxygen Delivery 06/04/22 00:00 06/04/22 00:00 06/04/22 02:00 Temperature Pulse Rate 83 83 77 Respiratory Rate 20 Blood Pressure Pulse Oximetry 100 Oxygen Delivery Room Air 06/04/22 04:00 06/04/22 04:00 06/04/22 06:00 Temperature Pulse Rate 91 91 90 Respiratory Rate 20 Blood Pressure Pulse Oximetry 100 Oxygen Delivery Room Air 06/04/22 07:00 06/04/22 08:00 06/04/22 10:00 Temperature 97.8 F Pulse Rate 94 85 95 Respiratory Rate 16 Blood Pressure 98/61 L Pulse Oximetry 91 Oxygen Delivery 06/04/22 08:00 06/04/22 12:39 06/04/22 12:40 Temperature 97.2 F L Pulse Rate 91 Respiratory Rate 20 Blood Pressure 98/64 L 96/68 L Pulse Oximetry 92 Oxygen Delivery Room Air 06/04/22 12:40 06/04/22 12:00 06/04/22 14:00 Temperature Pulse Rate 86 86 Respiratory Rate Blood Pressure 105/54 L Pulse Oximetry Oxygen Delivery 06/04/22 12:00 06/04/22 16:00 06/04/22 16:00 Temperature Pulse Rate 88 Respiratory Rate Blood Pressure Pulse Oximetry Oxygen Delivery Room Air Room Air 06/04/22 15:00 Temperature 97.5 F L Pulse Rate 99 Respiratory Rate 20 Blood Pressure 101/73 Pulse Oximetry 92 Oxygen Delivery Intake/Output Intake/Output: Intake & Output 06/01/22 06/02/22 06/03/22 06/04/22
[2022-06-04] MEDS: TIZANIDINE HCL 2 MG TABLET PO (21:07)
[2022-06-04] MEDS: SIMVASTATIN 20 MG TABLET PO (21:07)
[2022-06-04] MEDS: SACUBITRIL/VALSARTAN 24-26 MG TABLET 1 TAB PO (21:07)
[2022-06-04] MEDS: DOBUTamine 250 MG/D5W 250 ML 250 MG/250 ML BAG 13.88 MG IV CONT (21:08)
[2022-06-04] MEDS: CLOPIDOGREL BISULFATE 75 MG TABLET PO (21:14)
--- NOTE | 2022-06-04 21:21 | PC.NURSE ---
patient fingertips are more blue, patient is more sob at rest. placed on 3 l nc. will continue to monitor.
[2022-06-05] VITALS (16 sets, daily range): BP systolic 97–111; BP diastolic 56–77; PULSE 81–106; RESP 16–20; TEMP 36.2–36.7; O2SAT 84–100
[2022-06-05 04:50] LABS: Hematocrit 34.6 % (42.0-52.0); Hemoglobin 11.8 g/dL (14.0-18.0); Mean Corpuscular HGB Conc 34.1 g/dl (32-36); Mean Corpuscular Hemoglobin 35.2 pg (26-34); Mean Corpuscular Volume 103.3 fl (80-100); Platelet Count Result 118 k/mm3 (150-375); Red Blood Count 3.35 M/mm3 (4.6-6.20); White Blood Count 3.8 K/mm3 (4.5-10.0)
[2022-06-05 05:08] LABS: Alanine Aminotransferase 22 U/L (6-50); Albumin Level 2.8 g/dL (3.5-5.1); Alkaline Phosphatase 113 U/L (38-126); Aspartate Amino Transferase 32 U/L (17-59); Bilirubin,Total 1.5 mg/dL (0.2-1.3); Blood Urea Nitrogen 35 mg/dL (9-20); Calcium 8.3 mg/dL (8.4-10.2); Carbon Dioxide 35 mmol/L (22-30); Chloride 96 mmol/L (98-107); Estimated CRCL calculation 43 ml/min; Estimated Glomerular Filt Rate 50; Glucose 130 mg/dL (65-110); Potassium 3.7 mmol/L (3.4-5.0)
[2022-06-05 05:44] LABS: Anion Gap -4 mmol/L (8-16); Sodium 127 mmol/L (137-145)
[2022-06-05] MEDS: SACUBITRIL/VALSARTAN 24-26 MG TABLET 1 TAB PO ×2 (08:34→21:22)
[2022-06-05] MEDS: BUMETANIDE INJ 1 MG/4 ML VIAL IV PUSH ×2 (08:37→18:08)
--- NOTE | 2022-06-05 09:25 | PM.IMPN ---
Progress Note: A&P Assessment and Plan (1) Acute on chronic systolic CHF (congestive heart failure), NYHA class 4: Code(s): I50.23 - Acute on chronic systolic (congestive) heart failure Status: Acute Assessment and Plan: Acute on chronic exacerbation HFrEF (EF<15% in October 2021). He presented to the emergency department with complaints of falls and increasing shortness of breath. Chest x-ray did show cardiomegaly with mild interstitial edema. His had a 20 lb weight gain since his prior admission. He has ICD/pacemaker He does were endorse taking Lasix 40 mg b.i.d. with occasional missed evening does, however discharge notes from October 2021 showed patient was discharged on 80 mg of p.o. once daily in the morning. Patient may need higher doses of oral Lasix or medication change to Bumex or torsemide if he is unable to tolerate this. Changed Lasix to Bumex IV 1 mg. holding coreg, entresto and spironolactone for low BP Daily weights and monitor strict I's and O's - appear inaccurate, but net is positive. Aidan wraps and elevate bilateral lower extremities to assist with edema BNP >35,000 Cardiology following and appreciate recommendations 05/30/22 He had an episode of orthostatic hypotension with SBP 64 standing. Hold evening Bumex. Monitor orthostatic vitals before am diuretic. Apply ELLIOTT hose. The patient is concerned about having a paracentesis. I discussed with the radiologist regarding this and he reported Plavix needs to be held 5 days prior to procedure as he is stable and this is non-emergent. He is scheduled for outpatient paracentesis 06/04/2205/31 - renal function increased since admission and patient with +orthostatic BP yesterday. Change Bumex 1 mg IV Q24 hours. Continue ELLIOTT hose/aidan wraps BLE. Hold Coreg. Discussed with Cardiology- Entresto and Aldactone continued. 06/01/22 Renal function minimal change from yesterday. K 5.7. Hold Entresto and Spironolactone. Low potassium diet. Was treated with Bumex. Cardiology following and plans to transfer to IMU for dobutamine gtt. 06/02/22 Continued on dobutamine gtt and cardiology management. Entresto, spironolactone and coreg on hold. K 4.6 and improved with holding medications. 06/03/22 ultrasound-guided paracenteses ordered. Was scheduled for paracentesis 06/04. Last Plavix given 05/29 0032. I&O shows at 640 mL. Weight unchanged from the previous Day 06/04/22 weights fluctuant 92.8 kg today. I/O -2770 mL. continued on dobutamine drip per cardiology. Plavix renewed post-paracentesis today. His renal function is improved and Entresto was resumed. Repeat BMP and consider restarting spironolactone if still stable. 06/05/22: I/O -205mL today. Continue dobutamine drip per cardiology. Continue Plavix and Entresto. Spironolactone resumed per Cardiology. Hold carvedilol and so dobutamine is discontinued. Continue to work with cardiology to plan patient's discharge. (2) Fall from ground level: Code(s): W18.30XA - Fall on same level, unspecified, initial encounter Status: Acute Assessment and Plan: He reports positional dizziness that may be contributing to falls. vitals and BLE ELLIOTT hose Fall precautions PT OT evaluation. Plan for discharge to rehab at [facility]. His is currently hospitalized as well. (3) Thrombocytopenia: Code(s): D69.6 - Thrombocytopenia, unspecified Status: Acute Assessment and Plan: Platelets noted to be 148 on admission. Unknown etiology, may be reactive. Monitor CBC. Plavix continued post paracentesis. Holding heparin post- paracentesis. Resume tomorrow if platelets stable. (4) Chronic kidney disease, stage 3: Qualifiers: Chronic kidney disease stage 3 subtype: stage 3a (GFR 45-59) Qualified Code(s): N18.31 - Chronic kidney disease, stage 3a Code(s): N18.30 - Chronic kidney disease, stage 3 unspecified Status: Chronic Assessment and Plan: Chronic
--- NOTE | 2022-06-05 14:31 | PM.PNCARD ---
Progress Note: A&P Assessment and Plan (1) Acute on chronic systolic CHF (congestive heart failure), NYHA class 4: Code(s): I50.23 - Acute on chronic systolic (congestive) heart failure Status: Acute Assessment and Plan: Acute on chronic heart failure with reduced ejection fraction EF 15%. NYHA class IV, stage D. -Continue accurate input and output, daily weights. -Continue telemetry. -Continue Entresto, Bumex to 1 mg BID. -Difficult timing with discontinuation of Dobutamine. Continue today, anticipate will stop in AM and observe at least 24 hours in the hospital his tolerance off Dobutamine. Discussed with patient and more extensively with his son addressing concerns for end-stage cardiomyopathy/heart failure and concerns a he may be inotrope dependent. Will need to monitor closely. We discussed concept hospice care versus palliative therapy, patient's poor prognosis and trajectory. Explained concerns with regards repeat hospitalization for decompensated heart failure requiring inotrope support benefit with regards to quality of life and stabilization decompensation but not for prolonging life. he has limited options. - will resume spironolactone 12.5 mg daily tomorrow and carvedilol 3.125 mg twice daily (likely tomorrow evening) when off dobutamine. all questions answered to the patient's son. He verbalized understanding and appreciated my explanations to he can help plan care of his father at discharge. As an outpatient, he is to follow-up with the [facility] for palliative care options given is his cardiomyopathy, repeat hospitalization for decompensated heart failure requiring inotrope support. (2) Coronary artery disease: Qualifiers: Associated angina: without angina Coronary Disease-Associated Artery/Lesion type: bypass graft [place] vs. transplanted heart: [place] heart Qualified Code(s): I25.810 - Atherosclerosis of coronary artery bypass graft(s) without angina pectoris Code(s): I25.10 - Atherosclerotic heart disease of [place] coronary artery without angina pectoris Status: Chronic Assessment and Plan: No clear anginal symptoms. Continue medical therapy. Resume clopidogrel (3) Ischemic cardiomyopathy: Code(s): I25.5 - Ischemic cardiomyopathy Status: Chronic Assessment and Plan: Severe LV systolic dysfunction EF 15% end-stage cardiomyopathy. (4) Chronic kidney disease, stage 3: Qualifiers: Chronic kidney disease stage 3 subtype: stage 3a (GFR 45-59) Qualified Code(s): N18.31 - Chronic kidney disease, stage 3a Code(s): N18.30 - Chronic kidney disease, stage 3 unspecified Status: Chronic Assessment and Plan: Mild acute on chronic renal insufficiency secondary to hypoperfusion low cardiac output. (5) Obstructive sleep apnea on CPAP: Code(s): G47.33 - Obstructive sleep apnea (adult) (pediatric); Z99.89 - Dependence on other enabling machines and devices Status: Chronic Assessment and Plan: Continue compliance with therapy. (6) Peripheral arterial disease with history of revascularization: Code(s): I73.9 - Peripheral vascular disease, unspecified; Z98.890 - Other specified postprocedural states Status: Chronic Assessment and Plan: No new issues. Statin therapy. Subjective Date/time seen: Date of service: 06/05/22 14:31 Interval history: Reason for visit: Decompensated heart failure, ischemic cardiomyopathy HPI: This is patient of Dr. Galindo. He has a history of CAD s/p CABG x 2 in November 1998 at [facility], history of PCI/stenting, HFrEF with severely reduced ejection fraction s/p BiV ICD, PAD, history of AAA repair/aortobifemoral bypass graft. Patient was last admitted here in October 2021 for decompensated heart failure. He presents this time with progressive swelling, especially in his bilateral lower legs. He also reports two falls. He fell forward when
--- NOTE | 2022-06-05 15:07 | PCPTNOTE ---
Attempted to see patient for PT, however patient declined. Patient reported he had some bills to write out and he has family here now to go mail them, patient asked therapy to wait.
--- NOTE | 2022-06-05 17:52 | P.PNNP_ITS ---
Progress Note: A&P Assessment and Plan (1) MORAIMA (acute kidney injury): Code(s): N17.9 - Acute kidney failure, unspecified Status: Acute Assessment and Plan: * likely due to renal venous hypertension * he is on dobutamine now. * better perfusion of kidneys and lower central venous pressures. * Creatinine seems to have plateaued at about 1.3-1.4. * He has probably gotten all we can out of the Dobutamine from the renal standpoint. * Discussed with Dr. Duffy. not sure how long he should be on the Dobutamine and whether there will be a rebound of poor LV function once off of it. He wants to continue it 1 more night and reassess in the morning. * urine output was not quite as good yesterday. (2) Stage 3b chronic kidney disease: Code(s): N18.32 - Chronic kidney disease, stage 3b Status: Chronic Assessment and Plan: * creatinine has been running ~ 1.3 - 1.6mg/dl in the last 6 months (October 2021) * parenchymal disease not as much to do with this as the hemodynamics. (3) Acute on chronic systolic heart failure: Code(s): I50.23 - Acute on chronic systolic (congestive) heart failure Status: Acute Assessment and Plan: * as evidenced by presentation and issues to date * Cardiology following * Improved symptoms with Dobutamine * continue this at 2.5. * He is on entresto now. He will restart spironolactone and carvedilol eventually. (4) Hyperkalemia: Code(s): E87.5 - Hyperkalemia Status: Acute Assessment and Plan: * stable at this time * due to MORAIMA, entresto, and spironolactone * entresto and spironolactone on hold currently * Potassium 3.7 today. (5) Ascites: Code(s): R18.8 - Other ascites Status: Chronic Assessment and Plan: * chronic issue * Likely due to his heart issues * Patient had paracentesis and 2100 removed (6) Chronic anemia: Code(s): D64.9 - Anemia, unspecified Status: Chronic Assessment and Plan: * likely due to MORAIMA, CKD, and acute illness * no need for ESAs * hemoglobin above 11 Subjective Date/time seen: 06/05/22 17:52 Interval history: 12/5 Johny is feeling about the same. Lying flat in bed. Not short of breath. He does have some swelling. 06/04 Pt is alert. up in a chair. some swelling still breathing much better. 06/05 patient is up in a chair eating supper. Swelling is still there. He says he has been up and around a lot and has not elevate his legs much today. not much shortness of breath at rest. Some cough. Exam Narrative: General: WD/WN male in NAD Heart: normal S1 and S2; no rub or gallop Lungs: dfew crackles at the bases. Abdomen: soft, nontender, nondistended, positive bowel sounds; + ascites Extremities: 2 - 3+ edema Skin: no rash or sq nodules Objective Data Vital Signs Vital Signs: Vital Signs - 24 hr 06/04/22 21:08 06/04/22 20:00 06/04/22 20:00 Temperature Pulse Rate 94 94 Respiratory Rate 20 Blood Pressure 106/77 Pulse Oximetry 92 Oxygen Delivery Nasal Cannula Oxygen Flow Rate 3 06/04/22 20:00 06/04/22 20:03 06/04/22 20:05 Temperature 97.1 F L Pulse Rate 98 Respiratory Rate 18 Blood Pressure 106/77 98/61 L 95/70 L Pulse Oximetry 8
--- NOTE | 2022-06-05 17:52 | PM.PNNEP ---
Progress Note: A&P Assessment and Plan (1) MORAIMA (acute kidney injury): Code(s): N17.9 - Acute kidney failure, unspecified Status: Acute Assessment and Plan: likely due to renal venous hypertension he is on dobutamine now. better perfusion of kidneys and lower central venous pressures. Creatinine seems to have plateaued at about 1.3-1.4. He has probably gotten all we can out of the Dobutamine from the renal standpoint. Discussed with Dr. Duffy. not sure how long he should be on the Dobutamine and whether there will be a rebound of poor LV function once off of it. He wants to continue it 1 more night and reassess in the morning. urine output was not quite as good yesterday. (2) Stage 3b chronic kidney disease: Code(s): N18.32 - Chronic kidney disease, stage 3b Status: Chronic Assessment and Plan: creatinine has been running ~ 1.3 - 1.6mg/dl in the last 6 months (October 2021) parenchymal disease not as much to do with this as the hemodynamics. (3) Acute on chronic systolic heart failure: Code(s): I50.23 - Acute on chronic systolic (congestive) heart failure Status: Acute Assessment and Plan: as evidenced by presentation and issues to date Cardiology following Improved symptoms with Dobutamine continue this at 2.5. He is on entresto now. He will restart spironolactone and carvedilol eventually. (4) Hyperkalemia: Code(s): E87.5 - Hyperkalemia Status: Acute Assessment and Plan: stable at this time due to MORAIMA, entresto, and spironolactone entresto and spironolactone on hold currently Potassium 3.7 today. (5) Ascites: Code(s): R18.8 - Other ascites Status: Chronic Assessment and Plan: chronic issue Likely due to his heart issues Patient had paracentesis and 2100 removed (6) Chronic anemia: Code(s): D64.9 - Anemia, unspecified Status: Chronic Assessment and Plan: likely due to MORAIMA, CKD, and acute illness no need for ESAs hemoglobin above 11 Subjective Date/time seen: 06/05/22 17:52 Interval history: 06/03 Johny is feeling about the same. Lying flat in bed. Not short of breath. He does have some swelling. 06/04 Pt is alert. up in a chair. some swelling still breathing much better. 06/05 patient is up in a chair eating supper. Swelling is still there. He says he has been up and around a lot and has not elevate his legs much today. not much shortness of breath at rest. Some cough. Exam Narrative: General: WD/WN male in NAD Heart: normal S1 and S2; no rub or gallop Lungs: dfew crackles at the bases. Abdomen: soft, nontender, nondistended, positive bowel sounds; + ascites Extremities: 2 - 3+ edema Skin: no rash or sq nodules Objective Data Vital Signs Vital Signs: Vital Signs - 24 hr 06/04/22 21:08 06/04/22 20:00 06/04/22 20:00 Temperature Pulse Rate 94 94 Respiratory Rate 20 Blood Pressure 106/77 Pulse Oximetry 92 Oxygen Delivery Nasal Cannula Oxygen Flow Rate 3 06/04/22 20:00 06/04/22 20:03 06/04/22 20:05 Temperature 97.1 F L Pulse Rate 98 Respiratory Rate 18 Blood Pressure 106/77 98/61 L 95/70 L Pulse Oximetry 84 L Oxygen Delivery Oxygen Flow Rate 06/04/22 20:00 06/04/22 22:00 06/05/22 00:00 Temperature Pulse Rate 99 101 H 86 Respiratory Rate Blood Pressure Pulse Oximetry Oxygen Delivery Oxygen Flow Rate 06/05/22 00:00 06/05/22 02:00 06/05/22 04:00 Temperature Pulse Rate 86 86 91 Respiratory Rate 18 Blood Pressure Pulse Oximetry 84 L Oxygen Delivery Nasal Cannula Oxygen Flow Rate 3 06/05/22 04:00 06/05/22 04:00 06/05/22 06:00 Temperature 97.3 F L Pulse Rate 91 88 81 Respiratory Rate 18 20 Blood Pressure 103/73 Pulse Oximetry 84 L 100 Oxygen Delivery Nasal Cannula Oxygen Flow Rate 3 06/05/22 09:
[2022-06-05] MEDS: DOBUTamine 250 MG/D5W 250 ML 250 MG/250 ML BAG 13.88 MG IV CONT (18:09)
[2022-06-05] MEDS: TIZANIDINE HCL 2 MG TABLET PO (21:22)
[2022-06-05] MEDS: CLOPIDOGREL BISULFATE 75 MG TABLET PO (21:22)
[2022-06-05] MEDS: SIMVASTATIN 20 MG TABLET PO (21:23)
[2022-06-06] VITALS (16 sets, daily range): BP systolic 96–108; BP diastolic 62–75; PULSE 77–111; RESP 16–20; TEMP 35.6–36.6; O2SAT 90–100
[2022-06-06 03:24] LABS: Phosphorus 2.6 mg/dL (2.5-4.5)
[2022-06-06 05:13] LABS: Hematocrit 34.6 % (42.0-52.0); Hemoglobin 11.7 g/dL (14.0-18.0); Immature Platelet Fraction Pct 5.4 % (0.9-11.2); Mean Corpuscular HGB Conc 33.8 g/dl (32-36); Mean Corpuscular Hemoglobin 35.2 pg (26-34); Mean Corpuscular Volume 104.2 fl (80-100); Mean Platelet Volume 10.7 fl (7.4-10.4); Platelet Count Result 138 k/mm3 (150-375); Red Blood Count 3.32 M/mm3 (4.6-6.20); White Blood Count 3.9 K/mm3 (4.5-10.0)
[2022-06-06 05:18] LABS: Albumin Level 2.9 g/dL (3.5-5.1); Anion Gap 3 mmol/L (8-16); Blood Urea Nitrogen 33 mg/dL (9-20); Calcium 8.4 mg/dL (8.4-10.2); Carbon Dioxide 34 mmol/L (22-30); Chloride 96 mmol/L (98-107); Estimated CRCL calculation 46 ml/min; Estimated Glomerular Filt Rate 54; Glucose 92 mg/dL (65-110); Phosphorus 2.6 mg/dL (2.5-4.5); Potassium 3.6 mmol/L (3.4-5.0); Sodium 133 mmol/L (137-145)
--- NOTE | 2022-06-06 08:20 | PCNWS ---
Weekly nutritional screen. Patient is tolerating current diet with adequate intake. No weight loss reported. No nutritional needs at this time.
[2022-06-06] MEDS: SPIRONOLACTONE 12.5 MG TABLET PO (09:55)
[2022-06-06] MEDS: SACUBITRIL/VALSARTAN 24-26 MG TABLET 1 TAB PO ×2 (09:55→20:20)
[2022-06-06] MEDS: BUMETANIDE INJ 1 MG/4 ML VIAL IV PUSH ×2 (09:56→17:12)
--- NOTE | 2022-06-06 10:56 | PM.PNCARD ---
Progress Note: A&P Assessment and Plan (1) Acute on chronic systolic CHF (congestive heart failure), NYHA class 4: Code(s): I50.23 - Acute on chronic systolic (congestive) heart failure <CHRIS Romano - Last Filed: 06/06/22 11:02> Status: Acute <CHRIS Romano - Last Filed: 06/06/22 11:02> Assessment and Plan: Acute on chronic heart failure with reduced ejection fraction EF 15%. NYHA class IV, stage D. -Continue accurate input and output, daily weights. -Continue telemetry. -Continue Entresto -Continue Bumex 1mg IV b.i.d -HEAD OF DRAMA discontinued this morning. Will observe for tolerance off inotrope - spironolactone 12.5 mg daily carvedilol 3.125 mg twice daily to be resumed this evening. Monitor for hypotension especially orthostatic hypotension which has been problematic for the patient in the past. As an outpatient, he is to follow-up with the [facility] for palliative care options given is his cardiomyopathy, repeat hospitalization for decompensated heart failure requiring inotrope support. <CHRIS Romano - Last Filed: 06/06/22 11:02> (2) Coronary artery disease: Qualifiers: Associated angina: without angina Coronary Disease-Associated Artery/Lesion type: bypass graft [place] vs. transplanted heart: [place] heart Qualified Code(s): I25.810 - Atherosclerosis of coronary artery bypass graft(s) without angina pectoris <CHRIS Romano - Last Filed: 06/06/22 11:02> Code(s): I25.10 - Atherosclerotic heart disease of [place] coronary artery without angina pectoris <CHRIS Romano - Last Filed: 06/06/22 11:02> Status: Chronic <CHRIS Romano - Last Filed: 06/06/22 11:02> Assessment and Plan: No clear anginal symptoms. Continue medical therapy. Resume clopidogrel <CHRIS Romano - Last Filed: 06/06/22 11:02> (3) Ischemic cardiomyopathy: Code(s): I25.5 - Ischemic cardiomyopathy <CHRIS Romano - Last Filed: 06/06/22 11:02> Status: Chronic <CHRIS Romano - Last Filed: 06/06/22 11:02> Assessment and Plan: Severe LV systolic dysfunction EF 15% end-stage cardiomyopathy. <CHRIS Romano - Last Filed: 06/06/22 11:02> (4) Chronic kidney disease, stage 3: Qualifiers: Chronic kidney disease stage 3 subtype: stage 3a (GFR 45-59) Qualified Code(s): N18.31 - Chronic kidney disease, stage 3a <CHRIS Romano - Last Filed: 06/06/22 11:02> Code(s): N18.30 - Chronic kidney disease, stage 3 unspecified <CHRIS Romano - Last Filed: 06/06/22 11:02> Status: Chronic <CHRIS Romano - Last Filed: 06/06/22 11:02> Assessment and Plan: Mild acute on chronic renal insufficiency secondary to hypoperfusion low cardiac output. Improved on HEAD OF DRAMA. Monitor closely. <CHRIS Romano - Last Filed: 06/06/22 11:02> (5) Obstructive sleep apnea on CPAP: Code(s): G47.33 - Obstructive sleep apnea (adult) (pediatric); Z99.89 - Dependence on other enabling machines and devices <CHRIS Romano - Last Filed: 06/06/22 11:02> Status: Chronic <CHRIS Romano - Last Filed: 06/06/22 11:02> Assessment and Plan: Continue compliance with therapy. <CHRIS Romano - Last Filed: 06/06/22 11:02> (6) Peripheral arterial disease with history of revascularization: Code(s): I73.9 - Peripheral vascular disease, unspecified; Z98.890 - Other specified postprocedural states <CHRIS Romano - Last Filed: 06/06/22 11:02> Status: Chronic <CHRIS Romano - Last Filed: 06/06/22 11:02> Assessment and Plan: No new issues. Statin therapy. <CHRIS Romano - Last Filed: 06/06/22 11:02> Assessment and Plan: Attending addendum: I agree with the above documentation and plan of care as outlined. <Eleuterio Gaspar MD - Last Filed: 1
--- NOTE | 2022-06-06 15:22 | PM.IMPN ---
Progress Note: A&P Assessment and Plan (1) Acute on chronic systolic CHF (congestive heart failure), NYHA class 4: Code(s): I50.23 - Acute on chronic systolic (congestive) heart failure Status: Acute Assessment and Plan: Acute on chronic exacerbation HFrEF (EF<15% in October 2021). He presented to the emergency department with complaints of falls and increasing shortness of breath. Chest x-ray did show cardiomegaly with mild interstitial edema. His had a 20 lb weight gain since his prior admission. He has ICD/pacemaker He does were endorse taking Lasix 40 mg b.i.d. with occasional missed evening does, however discharge notes from October 2021 showed patient was discharged on 80 mg of p.o. once daily in the morning. Patient may need higher doses of oral Lasix or medication change to Bumex or torsemide if he is unable to tolerate this. Changed Lasix to Bumex IV 1 mg. holding coreg, entresto and spironolactone for low BP Daily weights and monitor strict I's and O's - appear inaccurate, but net is positive. Aidan wraps and elevate bilateral lower extremities to assist with edema BNP >35,000 Cardiology following and appreciate recommendations 05/30/22 He had an episode of orthostatic hypotension with SBP 64 standing. Hold evening Bumex. Monitor orthostatic vitals before am diuretic. Apply ELLIOTT hose. The patient is concerned about having a paracentesis. I discussed with the radiologist regarding this and he reported Plavix needs to be held 5 days prior to procedure as he is stable and this is non-emergent. He is scheduled for outpatient paracentesis 06/04/2205/31 - renal function increased since admission and patient with +orthostatic BP yesterday. Change Bumex 1 mg IV Q24 hours. Continue ELLIOTT hose/aidan wraps BLE. Hold Coreg. Discussed with Cardiology- Entresto and Aldactone continued. 06/01/22 Renal function minimal change from yesterday. K 5.7. Hold Entresto and Spironolactone. Low potassium diet. Was treated with Bumex. Cardiology following and plans to transfer to IMU for dobutamine gtt. 06/02/22 Continued on dobutamine gtt and cardiology management. Entresto, spironolactone and coreg on hold. K 4.6 and improved with holding medications. 06/03/22 ultrasound-guided paracenteses ordered. Was scheduled for paracentesis 06/04. Last Plavix given 05/29 0032. I&O shows at 640 mL. Weight unchanged from the previous Day 06/04/22 weights fluctuant 92.8 kg today. I/O -2770 mL. continued on dobutamine drip per cardiology. Plavix renewed post-paracentesis today. His renal function is improved and Entresto was resumed. Repeat BMP and consider restarting spironolactone if still stable. 06/05/22: I/O -205mL today. Continue dobutamine drip per cardiology. Continue Plavix and Entresto. Spironolactone resumed per Cardiology. Hold carvedilol and so dobutamine is discontinued. 06/06/22: Patient dobutamine being discontinued this morning. Patient is being observed for his tolerance off of the medication. Spironolactone and carvedilol resumed. Per cardiology monitoring hypotension and initiating fall precautions is necessary. Plan to discharge patient tomorrow pending how he does off of the dobutamine today. Per discharge patient will need advanced heart failure clinic for palliative care options. Patient's blood pressure has remained stable throughout the morning and early afternoon. Continue to work with cardiology to plan patient's discharge. (2) Fall from ground level: Code(s): W18.30XA - Fall on same level, unspecified, initial encounter Status: Acute Assessment and Plan: He reports positional dizziness that may be contributing to falls. vitals and BLE ELLIOTT hose Fall precautions PT OT evaluation. Plan for discharge to rehab at [facility]. His is currently hospitalized as well. (3) Thrombocytopenia: Code(s): D69.6 - Thrombocytopenia, unspecified Status: Acute Assessment and Plan: Kiar[place]
--- NOTE | 2022-06-06 16:15 | PCPTNOTE ---
The patient treatment was not able to be completed this date. Will plan to continue treatment per plan of care.
--- NOTE | 2022-06-06 18:08 | P.PNNP_ITS ---
Progress Note: A&P Assessment and Plan (1) MORAIMA (acute kidney injury): Code(s): N17.9 - Acute kidney failure, unspecified Status: Acute Assessment and Plan: * likely due to renal venous hypertension * he is off dobutamine now. * Still making some urine. * Will see how he does overnight and see with a creatinine is tomorrow. (2) Stage 3b chronic kidney disease: Code(s): N18.32 - Chronic kidney disease, stage 3b Status: Chronic Assessment and Plan: * creatinine has been running ~ 1.3 - 1.6mg/dl in the last 6 months (October 2021) * parenchymal disease not as much to do with this as the hemodynamics. (3) Acute on chronic systolic heart failure: Code(s): I50.23 - Acute on chronic systolic (congestive) heart failure Status: Acute Assessment and Plan: * as evidenced by presentation and issues to date * Cardiology following * Improved symptoms with Dobutamine * Off dobutamine now. * Restarting spironolactone and carvedilol (4) Hyperkalemia: Code(s): E87.5 - Hyperkalemia Status: Acute Assessment and Plan: * stable at this time * due to MORAIMA, entresto, and spironolactone * entresto and spironolactone on hold currently * Potassium 3.6 today. (5) Ascites: Code(s): R18.8 - Other ascites Status: Chronic Assessment and Plan: * chronic issue * Likely due to his heart issues * Patient had paracentesis and 2100 removed (6) Chronic anemia: Code(s): D64.9 - Anemia, unspecified Status: Chronic Assessment and Plan: * likely due to MORAIMA, CKD, and acute illness * no need for ESAs * hemoglobin above 11 Subjective Date/time seen: 06/06/22 18:08 Interval history: 06/03 Johny is feeling about the same. Lying flat in bed. Not short of breath. He does have some swelling. 06/04 Pt is alert. up in a chair. some swelling still breathing much better. 06/05 patient is up in a chair eating supper. Swelling is still there. He says he has been up and around a lot and has not elevate his legs much today. not much shortness of breath at rest. Some cough. 06/06 Patient feels okay. Lying flat in bed. He is not short of breath. Is still making lots of urine. Exam Narrative: General: WD/WN male in NAD Heart: normal S1 and S2; no rub or gallop Lungs: a few crackles at the bases. Abdomen: soft, nontender, nondistended, positive bowel sounds; + ascites Extremities: 2 - 3+ edema Skin: no rash or sq nodules Objective Data Vital Signs Vital Signs: Vital Signs - 24 hr 06/05/22 20:00 06/05/22 20:00 06/05/22 20:00 Temperature 97.8 F Pulse Rate 94 Respiratory Rate 16 Blood Pressure 106/75 103/67 109/77 Pulse Oximetry 100 Oxygen Delivery Oxygen Flow Rate 06/05/22 20:00 06/05/22 20:00 06/05/22 20:00 Temperature Pulse Rate 94 106 H Respiratory Rate 16 Blood Pressure 103/67 Pulse Oximetry 100 Oxygen Delivery Nasal Cannula Oxygen Flow Rate 1 06/05/22 22:00 06/05/22 23:49 06/06/22 00:00 Temperature 97.2 F L Pulse Rate 101 H 96 95 Respiratory Rate 18 Blood Pressure 111/73 Pulse Oximetry 10
--- NOTE | 2022-06-06 18:08 | PM.PNNEP ---
Progress Note: A&P Assessment and Plan (1) MORAIMA (acute kidney injury): Code(s): N17.9 - Acute kidney failure, unspecified Status: Acute Assessment and Plan: likely due to renal venous hypertension he is off dobutamine now. Still making some urine. Will see how he does overnight and see with a creatinine is tomorrow. (2) Stage 3b chronic kidney disease: Code(s): N18.32 - Chronic kidney disease, stage 3b Status: Chronic Assessment and Plan: creatinine has been running ~ 1.3 - 1.6mg/dl in the last 6 months (October 2021) parenchymal disease not as much to do with this as the hemodynamics. (3) Acute on chronic systolic heart failure: Code(s): I50.23 - Acute on chronic systolic (congestive) heart failure Status: Acute Assessment and Plan: as evidenced by presentation and issues to date Cardiology following Improved symptoms with Dobutamine Off dobutamine now. Restarting spironolactone and carvedilol (4) Hyperkalemia: Code(s): E87.5 - Hyperkalemia Status: Acute Assessment and Plan: stable at this time due to MORAIMA, entresto, and spironolactone entresto and spironolactone on hold currently Potassium 3.6 today. (5) Ascites: Code(s): R18.8 - Other ascites Status: Chronic Assessment and Plan: chronic issue Likely due to his heart issues Patient had paracentesis and 2100 removed (6) Chronic anemia: Code(s): D64.9 - Anemia, unspecified Status: Chronic Assessment and Plan: likely due to MORAIMA, CKD, and acute illness no need for ESAs hemoglobin above 11 Subjective Date/time seen: 06/06/22 18:08 Interval history: 06/03 Johny is feeling about the same. Lying flat in bed. Not short of breath. He does have some swelling. 06/04 Pt is alert. up in a chair. some swelling still breathing much better. 06/05 patient is up in a chair eating supper. Swelling is still there. He says he has been up and around a lot and has not elevate his legs much today. not much shortness of breath at rest. Some cough. 06/06 Patient feels okay. Lying flat in bed. He is not short of breath. Is still making lots of urine. Exam Narrative: General: WD/WN male in NAD Heart: normal S1 and S2; no rub or gallop Lungs: a few crackles at the bases. Abdomen: soft, nontender, nondistended, positive bowel sounds; + ascites Extremities: 2 - 3+ edema Skin: no rash or sq nodules Objective Data Vital Signs Vital Signs: Vital Signs - 24 hr 06/05/22 20:00 06/05/22 20:00 06/05/22 20:00 Temperature 97.8 F Pulse Rate 94 Respiratory Rate 16 Blood Pressure 106/75 103/67 109/77 Pulse Oximetry 100 Oxygen Delivery Oxygen Flow Rate 06/05/22 20:00 06/05/22 20:00 06/05/22 20:00 Temperature Pulse Rate 94 106 H Respiratory Rate 16 Blood Pressure 103/67 Pulse Oximetry 100 Oxygen Delivery Nasal Cannula Oxygen Flow Rate 1 06/05/22 22:00 06/05/22 23:49 06/06/22 00:00 Temperature 97.2 F L Pulse Rate 101 H 96 95 Respiratory Rate 18 Blood Pressure 111/73 Pulse Oximetry 100 Oxygen Delivery Oxygen Flow Rate 06/06/22 00:00 06/06/22 02:00 06/06/22 04:00 Temperature Pulse Rate 95 97 95 Respiratory Rate 18 Blood Pressure Pulse Oximetry 100 Oxygen Delivery Nasal Cannula Oxygen Flow Rate 1 06/06/22 04:00 06/06/22 04:00 06/06/22 06:00 Temperature 97.5 F L Pulse Rate 95 77 88 Respiratory Rate 18 20 Blood Pressure 97/68 L Pulse Oximetry 100 90 Oxygen Delivery Nasal Cannula Oxygen Flow Rate 1 06/06/22 08:00 06/06/22 08:00 06/06/22 08:00 Temperature 96.1 F L 96.3 F L Pulse Rate 91 92 Respiratory Rate 20 16 Blood Pressure 107/75 96/74 L Pulse Oximetry 99 98 91 Oxygen Delivery Room Air Oxygen Flow Rate 06/06/22 12:00 06/06/22 13:00 06/06/22 13:01 Temperature 96.3 F L
[2022-06-06] MEDS: CLOPIDOGREL BISULFATE 75 MG TABLET PO (20:20)
[2022-06-06] MEDS: SIMVASTATIN 20 MG TABLET PO (20:20)
[2022-06-06] MEDS: carvediloL 3.125 MG TABLET PO (21:39)
[2022-06-06] MEDS: TIZANIDINE HCL 2 MG TABLET PO (21:40)
[2022-06-07] VITALS (16 sets, daily range): BP systolic 84–110; BP diastolic 57–84; PULSE 75–100; RESP 12–18; TEMP 35.7–36.9; O2SAT 86–100
[2022-06-07 05:33] LABS: Albumin Level 2.9 g/dL (3.5-5.1); Anion Gap 5 mmol/L (8-16); Blood Urea Nitrogen 31 mg/dL (9-20); Calcium 8.3 mg/dL (8.4-10.2); Carbon Dioxide 33 mmol/L (22-30); Chloride 94 mmol/L (98-107); Estimated CRCL calculation 46 ml/min; Estimated Glomerular Filt Rate 54; Glucose 93 mg/dL (65-110); Phosphorus 2.9 mg/dL (2.5-4.5); Potassium 3.5 mmol/L (3.4-5.0); Sodium 132 mmol/L (137-145)
[2022-06-07] MEDS: SPIRONOLACTONE 12.5 MG TABLET PO (10:41)
[2022-06-07] MEDS: carvediloL 3.125 MG TABLET PO (10:41)
[2022-06-07] MEDS: SACUBITRIL/VALSARTAN 24-26 MG TABLET 1 TAB PO (10:41)
[2022-06-07] MEDS: BUMETANIDE INJ 1 MG/4 ML VIAL IV PUSH (10:42)
--- NOTE | 2022-06-07 11:48 | PM.PNCARD ---
Progress Note: A&P Assessment and Plan (1) Acute on chronic systolic heart failure: Code(s): I50.23 - Acute on chronic systolic (congestive) heart failure Status: Acute Plan 76-year-old man who clearly has and severe essentially end-stage ischemic cardiomyopathy. He has had recurrent hospitalizations and at this time has required ionotropic support to affect a diuresis. Despite all this he still has moderate edema which probably will not be able to be resolved in the hospital. He has received what appears to be optimal or maximal hospital benefit at this time. He would potentially benefit from ventricular assist device but is firm in his decision that he should not wish to consider this. We have nothing else to offer him here at [facility] in terms of improving this in my opinion. He can be discharged to a rehab facility but it will be important to let them know about his suboptimal/frail condition so he is not repeatedly sent back to [facility] where there is nothing else that can be offered to him in terms of treatment to alter the natural history of this. Despite all this he still wishes full code status. Elmer Stark MD [facility] Time Spent With Patient Time with patient: 25 - 35 minutes Subjective Date/time seen: Date of service: 06/07/22 11:48 Interval history: Reason for visit: Decompensated heart failure, ischemic cardiomyopathy HPI: This is patient of Dr. Stark's. He has a history of CAD s/p CABG x 2 in November 1998 at [facility], history of PCI/stenting, HFrEF with severely reduced ejection fraction s/p BiV ICD, PAD, history of AAA repair/aortobifemoral bypass graft. Patient was last admitted here in October 2021 for decompensated heart failure. He presents this time with progressive swelling, especially in his bilateral lower legs. He also reports two falls. He fell forward when bending over to pick something off the floor. He got tripped up and hit his head; sustained a shallow laceration. Denies any lightheadedness/dizziness, palpitations, chest pain or other symptoms prior to fall. ED evaluation showed two negative troponins. BNP elevated at 23,100. CXR showing edema. Patient started on IV Lasix. 05/30/2022: No acute events overnight. Switched to Bumex. Still volume overloaded. 06/01/2022: Patient states he is feeling worse today. Dizzy with any position change even sitting upright in bed. His more fatigued more short of breath just weaker in general. Just states he does not feel well. Urine output suggests he is fluid positive min patient states he is urinating a little bit. 06/02/2022: Started on dobutamine yesterday afternoon. Patient states he feels much better. More awake, less short of breath. Urine output has increased. Abdomen less tight. Energy improved. No chest pain or palpitations. Still with significant lower extremity edema but feels this may be improving somewhat. 06/03/22: Patient feels tired, about the same today overall. Feels more comfortable his breathing at rest but short vessel lying back and tired fairly quickly working with physical therapy. Feels his abdomen is still tight. He overall feels slight forward progress but still not feeling all that great. It is reported he urinated approximately 4 times overnight which was not recorded and is not reflected in his input output balance. No chest pain or palpitations. Planning for paracentesis this afternoon. Date of service 06/05/2022:Patient feels okay. Denies shortness of breath at rest. Breathing better with activity ambulating better as well. Denies chest pain or significant dizziness. Still has lower extremity edema abdomen soft. No new issues overnight. Date of service 06/06/2022: Feeling good this morning. Denies any shortness of breath. Still with significant LE edema. BLOCK SAWYER turned off right before my visit with the patient. Date of service 06/07/2022: Patient is stable still has moderat
--- NOTE | 2022-06-07 13:42 | PM.PNNEP ---
Progress Note: A&P Assessment and Plan (1) MORAIMA (acute kidney injury): Code(s): N17.9 - Acute kidney failure, unspecified Status: Acute Assessment and Plan: likely due to renal venous hypertension he is off dobutamine now. Still making some urine. his creatinine is stable. Exam looks stable. (2) Stage 3b chronic kidney disease: Code(s): N18.32 - Chronic kidney disease, stage 3b Status: Chronic Assessment and Plan: creatinine has been running ~ 1.3 - 1.6mg/dl in the last 6 months (October 2021) parenchymal disease not as much to do with this as the hemodynamics. (3) Acute on chronic systolic heart failure: Code(s): I50.23 - Acute on chronic systolic (congestive) heart failure Status: Acute Assessment and Plan: as evidenced by presentation and issues to date Cardiology following Improved symptoms with Dobutamine Off dobutamine now. Restarted spironolactone and carvedilol (4) Hyperkalemia: Code(s): E87.5 - Hyperkalemia Status: Acute Assessment and Plan: stable at this time due to MORAIMA, entresto, and spironolactone entresto and spironolactone on hold currently Potassium 3.5 today. (5) Ascites: Code(s): R18.8 - Other ascites Status: Chronic Assessment and Plan: chronic issue Likely due to his heart issues Patient had paracentesis and 2100 removed (6) Chronic anemia: Code(s): D64.9 - Anemia, unspecified Status: Chronic Assessment and Plan: likely due to MORAIMA, CKD, and acute illness no need for ESAs hemoglobin has been above 11 Subjective Date/time seen: 06/07/22 13:42 Interval history: 06/03 Johny is feeling about the same. Lying flat in bed. Not short of breath. He does have some swelling. 06/04 Pt is alert. up in a chair. some swelling still breathing much better. 06/05 patient is up in a chair eating supper. Swelling is still there. He says he has been up and around a lot and has not elevate his legs much today. not much shortness of breath at rest. Some cough. 06/06 Patient feels okay. Lying flat in bed. He is not short of breath. Is still making lots of urine. 06/07 The patient feels okay. He sitting up in a chair. He is eager to go to rehab. He did make quite as much urine overnight as he did during the day yesterday. He is not swollen anymore than usual. His breathing is about the same Exam Narrative: General: WD/WN male in NAD Heart: normal S1 and S2; no rub or gallop Lungs: a few crackles at the bases. Abdomen: soft, nontender, nondistended, positive bowel sounds; + ascites Extremities: 2 - 3+ edema Skin: no rash or sq nodules Objective Data Vital Signs Vital Signs: Vital Signs - 24 hr 06/06/22 14:00 06/06/22 15:40 06/06/22 16:00 Temperature Pulse Rate 89 103 H Respiratory Rate Blood Pressure Pulse Oximetry 94 Oxygen Delivery Room Air Oxygen Flow Rate 06/06/22 16:00 06/06/22 17:59 06/06/22 20:00 Temperature 96.5 F L Pulse Rate 93 97 Respiratory Rate 20 Blood Pressure 98/75 L 108/69 Pulse Oximetry 98 Oxygen Delivery Oxygen Flow Rate 06/06/22 20:00 06/06/22 20:00 06/06/22 20:00 Temperature 97.9 F Pulse Rate 98 Respiratory Rate 16 Blood Pressure 108/69 108/62 99/73 L Pulse Oximetry 95 Oxygen Delivery Oxygen Flow Rate 06/06/22 21:39 06/06/22 20:00 06/06/22 22:00 Temperature Pulse Rate 102 H 111 H 82 Respiratory Rate Blood Pressure Pulse Oximetry Oxygen Delivery Oxygen Flow Rate 06/07/22 00:00 06/07/22 00:00 06/07/22 00:00 Temperature 97.2 F L Pulse Rate 78 84 Respiratory Rate 18 Blood Pressure 92/57 L Pulse Oximetry 100 Oxygen Delivery Room Air Oxygen Flow Rate 06/07/22 02:00 06/07/22 04:00 06/07/22 04:00 Temperature Pulse Rate 79 83 Respiratory Rate Bloo
--- NOTE | 2022-06-07 15:00 | PM.DS ---
DS: Admitting Diagnosis Discharge Date 06/07/2022 Admitting Diagnosis Fall, severe CHF, CKD DS: Discharge Diagnosis Discharge Diagnosis (1) Acute on chronic systolic CHF (congestive heart failure), NYHA class 4: Code(s): I50.23 - Acute on chronic systolic (congestive) heart failure Status: Acute (2) Fall from ground level: Code(s): W18.30XA - Fall on same level, unspecified, initial encounter Status: Acute (3) Thrombocytopenia: Code(s): D69.6 - Thrombocytopenia, unspecified Status: Acute (4) Chronic kidney disease, stage 3: Qualifiers: Chronic kidney disease stage 3 subtype: stage 3a (GFR 45-59) Qualified Code(s): N18.31 - Chronic kidney disease, stage 3a Code(s): N18.30 - Chronic kidney disease, stage 3 unspecified Status: Chronic (5) Chronic anemia: Code(s): D64.9 - Anemia, unspecified Status: Chronic (6) Coronary artery disease: Qualifiers: Associated angina: without angina Coronary Disease-Associated Artery/Lesion type: bypass graft [place] vs. transplanted heart: [place] heart Qualified Code(s): I25.810 - Atherosclerosis of coronary artery bypass graft(s) without angina pectoris Code(s): I25.10 - Atherosclerotic heart disease of [place] coronary artery without angina pectoris Status: Chronic (7) Ischemic cardiomyopathy: Code(s): I25.5 - Ischemic cardiomyopathy Status: Chronic (8) Obstructive sleep apnea on CPAP: Code(s): G47.33 - Obstructive sleep apnea (adult) (pediatric); Z99.89 - Dependence on other enabling machines and devices Status: Chronic (9) Elevated TSH: Code(s): R79.89 - Other specified abnormal findings of blood chemistry Status: Acute (10) Hyperkalemia: Code(s): E87.5 - Hyperkalemia Status: Acute Plan Code status: Full code Disposition: plans to discharge to rehab. DVT: platelets 120, but patient is high risk for DVT. Holding heparin SQ post-paracentesis. Resume in am if still stable. SCDs and ELLIOTT hose already placed. DS: Summary Hospital Course Reason for hospitalization: Fall, weakness, severe CHF, CKD Hospital Course: 76-year-old patient with a history of severe CHF and CKD presented to the hospital following a fall. Patient had bent over to tie his shoe and lost his balance falling forward and striking his head. Patient did not lose consciousness but did have skin tears over right forehead, right forearm and left arm. Patient does have a history of falls and is had a couple falls over the past month. Patient did have a 20 lb weight gain over the last several months with pitting edema up to his abdomen. Patient has experience chronic orthopnea and increasing dyspnea on exertion. In the ER laceration was cleaned and covered with Steri-Strips. CT of the head and neck revealed no acute findings. Chest x-ray showed cardiomegaly with mild interstitial edema. Patient given high-dose IV Lasix in the emergency department. Cardiology consulted. Strict I's and O's and daily weight monitored. Defibrillator device interrogated. Patient's Lasix was changed to Bumex 1 g IV b.i.d. patient continued Coreg, Entresto and spironolactone. Bandages were put on lower extremities to assist with edema. Patient's BNP > 35,000. Patient experienced orthostatic hypertension as well as increased renal function during diuresis. Due to this patient's Coreg was held. Patient experience hyperkalemia during diuresis the us patient's Entresto and spironolactone were held. Patient was put on low-potassium diet. Potassium improved with these changes. Patient was transferred to IMU for dobutamine gtt due to other diuretic therapies failing. Patient improved on dobutamine. Patient has EF of 15%. NYHA class 4, stage D. district branch manager concern for and organ hypoperfusion due to needing ionotropic to diurese. Patient prognosis poor due to high risk for SCD. Patient has a Bi V IC
--- NOTE | 2022-06-07 16:41 | HOMEO2EVAL ---
Evaluation was performed at [facility] Home Oxygen Evaluation RC: Home Oxygen (O2) Evaluation Start: 06/07/22 15:57 Freq: ONCE Status: Active Protocol: RPE Activity Type Activity Date Activity User E-sign Co-sign Detail Recorded Client Recorded Date Recorded By Document 06/07/22 16:00 [email or web address] 06/07/22 16:41 SARA Document 06/07/22 16:01 [email or web address] [email or web address] 06/07/22 16:41 SARA Document 06/07/22 16:02 [email or web address] [email or web address] 06/07/22 16:41 SARA Document 06/07/22 16:10 [email or web address] [email or web address] 06/07/22 16:41 SARA Document 06/07/22 16:15 [email or web address] [email or web address] 06/07/22 16:41 SARA 06/07/22 06/07/22 06/07/22 16:00 16:01 16:02 Home O2 Evaluation [Oxygen] -Test Phase Resting Resting Resting -Oxygen Delivery Room Air Nasal Cannula Nasal Cannula -Oxygen Flow Rate (L/min) 1 2 [Pulse Oximetry] -Pulse Oximetry (90-100 %) 86 L 87 L 93 [Comments] -Home Oxygen Evaluation Comments [Charges] -Treatment Charges O2 Evaluation - Inpatient 06/07/22 06/07/22 16:10 16:15 Home O2 Evaluation [Oxygen] -Test Phase Exercise Resting -Oxygen Delivery Nasal Cannula Nasal Cannula -Oxygen Flow Rate (L/min) 2 2 [Pulse Oximetry] -Pulse Oximetry (90-100 %) 95 95 [Comments] -Home Oxygen Evaluation Comments Pt requires 2 L home O2 rest and with exertion. Requesting POC if possible [Charges] -Treatment Charges
== END 2022-06-07 19:01 | disposition home health service (06) | DRG 291 ==
LOC: ANHED 13:36 → ANH3MEDSUR 15:34 → ANH2MED 16:30 → ANHIMU 06-03 18:22 → ANH2MED 06-10 12:49 → ANHIMU 06-10 12:49
PROVIDERS: Internal Medicine Nephrology; Nurse Practitioner Family; Physician Assistant; Admitting Provider Family Medicine; Emergency Provider Emergency Medicine; PCP Family Medicine; Visit Provider Internal Medicine Critical Care Medicine
DX: I13.0 Hypertensive heart and chronic kidney disease with heart failure and stage 1 through stage 4 chronic kidney disease, or unspecified chronic kidney disease (principal); I50.23 Acute on chronic systolic (congestive) heart failure; N17.9 Acute kidney failure, unspecified; R18.8 Other ascites; D63.1 Anemia in chronic kidney disease; D64.9 Anemia, unspecified; D69.6 Thrombocytopenia, unspecified; G47.33 Obstructive sleep apnea (adult) (pediatric); I25.5 Ischemic cardiomyopathy; I25.10 Atherosclerotic heart disease of native coronary artery without angina pectoris; I71.40 Abdominal aortic aneurysm, without rupture, unspecified; I73.9 Peripheral vascular disease, unspecified; I95.9 Hypotension, unspecified; E87.5 Hyperkalemia; N18.32 Chronic kidney disease, stage 3b; R79.89 Other specified abnormal findings of blood chemistry; S50.812A Abrasion of left forearm, initial encounter; S01.81XA Laceration without foreign body of other part of head, initial encounter; S50.811A Abrasion of right forearm, initial encounter; W19.XXXA Unspecified fall, initial encounter; Z20.822 Contact with and (suspected) exposure to COVID-19; Z23 Encounter for immunization; Z87.891 Personal history of nicotine dependence; Z95.1 Presence of aortocoronary bypass graft; Z79.02 Long term (current) use of antithrombotics/antiplatelets; Z85.828 Personal history of other malignant neoplasm of skin; Z95.5 Presence of coronary angioplasty implant and graft; Z99.89 Dependence on other enabling machines and devices; Z95.810 Presence of automatic (implantable) cardiac defibrillator; Z91.81 History of falling
CPT/HCPCS: 36415; 49083; 70450; 71045; 72125; 76705; 80048; 80053; 80069; 82607; 82728; 82746; 82948; 83540; 83550; 83690; 83735; 83880; 84100; 84132; 84439; 84443; 84480; 84484; 85025; 85027; 85055; 85610; 85730; 87636; 90471; 90694; 90715; 93005; 93970; 94618; 96374; 96375; 96376; 97110; 97116; 97162; 97165; 97530; 97535; 99285; A9270; G0008; G0378; J1250; J1644; J1940; J2405

== ENCOUNTER 2022-06-24 22:51 | Inpatient (IN) | payer MEDICARE, SELFPAY ==
--- NOTE | ~2022-06-24 | CT_ITS ---
Non-contrast Head CT History: Syncope COMPARISON: 05/28/2022 Technique: Axial non-contrast imaging of the brain was performed. Dose reduction technique was used on this scan by utilizing automated exposure control and iterative reconstruction technique. The dose -length product (DLP) was 1362.00 mGy-cm. Findings: There is no evidence of intracranial hemorrhage, mass lesion, or acute infarct. Brain par enchyma appears normal. The ventricles and subarachnoid spaces are normal in size. The calvarium ap pears normal. The visualized paranasal sinuses and mastoid air cells are clear. Impression: No significant abnormality seen. Reviewed, dictated and finalized at location . GER OF INFORMATION Impression: No significant abnormality seen.
--- NOTE | ~2022-06-24 | US_ITS ---
EXAMINATION: US paracentesis abd w/image DATE: 06/29/2022 09:35 INDICATION: Ascites. TECHNIQUE: The procedure and its risks, benefits, and alternatives were discussed with the patient. P otential risks discussed included bleeding and infection. The skin was prepped and draped in sterile fashion. 1% lidocaine was used for local anesthesia. Under ultrasound guidance, a 5 Fr catheter with trochar was advanced into the ascites in the inferior abdomen. Fluid was aspirated. The catheter was removed, and a dressing was applied. There were no immediate complications. FINDINGS: Ultrasound images demonstrate ascites and the catheter within the fluid. IMPRESSION: 1. Successful ultrasound-guided paracentesis yielding 1300 mL of yellow fluid. Reviewed, dictated and finalized at location A. ANY ACCOUNTANT
--- NOTE | ~2022-06-24 | XR_ITS ---
Portable chest x-ray Comparison: 05/28/2022 Clinical History: Syncope Findings: Small right pleural effusion is unchanged. There is probable mild bibasilar pulmonary rex a/atelectasis. Cardiomediastinal silhouette is stable, status post probable CABG with pacemaker harika ce. Bones and soft tissues are unremarkable. Impression: Stable small right pleural effusion with probable mild bibasilar pulmonary edema/atelectasis. Status post CABG with pacemaker device. Reviewed, dictated and finalized at location . ARCH INTERN Impression: Stable small right pleural effusion with probable mild bibasilar pulmonary rex a/atelectasis. Status post CABG with pacemaker device.
--- NOTE | ~2022-06-24 | CT_ITS ---
Report cancelled because it is a duplicate dictation. Same as report [id number]. This report was recreated on 06/25/2022 by [facility]. Original report was TERINTELLIGENCE ANALYST. Non-contrast Head CT History: Syncope COMPARISON: 05/28/2022 Technique: Axial non-contrast imaging of the brain was performed. Dose reduction technique was used on this scan by utilizing automated exposure control and iterative reconstruction technique. The dose-length product (DLP) was 681.00 mGy-cm. Findings: There is no evidence of intracranial hemorrhage, mass lesion, or acute infarct. Brain parenchyma appears normal. The ventricles and subarachnoid spaces are normal in size. The calvarium appears normal. The visualized paranasal sinuses and mastoid air cells are clear. Impression: No significant abnormality seen. Reviewed, dictated and finalized at location . TERINTELLIGENCE ANALYST [facility]
[2022-06-24 22:51] VITALS: BP 105/83; PULSE 83; RESP 21; O2SAT 92
[2022-06-24 23:08] VITALS: PULSE 77
--- NOTE | 2022-06-24 23:21 | ED.AMS ---
HPI - Altered Mental Status General Chief Complaint: Altered Mental Status Stated Complaint: NEW ONSET SZ ACTIVITY Time Seen by Provider: 06/24/22 23:03 History of Present Illness HPI narrative: This is a 76-year-old male with past medical history of CHF, CAD, hypertension, brought in by EMS for altered mental status. Per EMS, the patient had an episode of unresponsiveness, followed by confusion. He is reported to be ANO x4 at baseline. In route the patient initially appeared confused though became oriented to time and self. Vital signs reported within normal limits, though patient was hypoxic to 84% on his home 2 L (EMS states that his fingers were cyanotic). Patient is unsure what occurred, but he has no complaints. Related Data Home Medications Medication Instructions Recorded Confirmed nitroglycerin 0.4 mg sublingual 0.4 mg sublingual PRN PRN Chest 11/19/21 05/28/22 tablet Pain pantoprazole 40 mg tablet,delayed 40 mg PO DAILY 11/19/21 05/28/22 release simvastatin 20 mg tablet 20 mg PO HS 11/19/21 05/28/22 tizanidine 4 mg tablet 4 mg PO HS PRN Muscle Spasm 11/19/21 05/28/22 Allergies Allergy/AdvReac Type Severity Reaction Status Date / Time No Known Allergies Allergy Unknown Verified 11/19/21 13:34 Review of Systems Review of Systems: CONSTITUTIONAL: Denies fever, chills, or sweats. EYES: Denies visual changes, redness, or discharge. ENT: Denies rhinorrhea, congestion, sore throat, or otalgia. CARDIOVASCULAR: Denies chest pain, palpitations, or edema. RESPIRATORY: Denies cough or dyspnea. GASTROINTESTINAL: Denies abdominal pain, nausea, vomiting, or diarrhea. GENITOURINARY: Denies dysuria or hematuria. SKIN: Denies rash or itching. MUSCULOSKELETAL: Denies back pain, joint pain, or myalgia. NEUROLOGIC: Denies headache, numbness, dizziness, or weakness. PSYCHIATRIC: Denies anxiety or depression. [facility] Past Medical History Medical History Abdominal aortic aneurysm (07/1998) Basal cell carcinoma (BCC) of skin of nose Chronic anemia Chronic kidney disease, stage 3 Congestive heart failure Coronary artery disease GI bleed Secondary to colonic angiodysplasias. Heart failure with reduced ejection fraction Ischemic cardiomyopathy Obstructive sleep apnea on CPAP Peripheral arterial disease with history of revascularization Surgical History Surgical History History of abdominal aortic aneurysm repair History of coronary artery bypass graft (1998) History of endarterectomy History of vascular surgery Bilateral lower extremity stents. Status post biventricular cardiac pacemaker insertion Family History Family History Other Acute myocardial infarction Cerebrovascular accident Peripheral vascular disease Social History Social History Social History: Surrogate medical decision maker: Code status: Full code. Smoking packs per day: 2 Smoking cigarettes per day: 40.0 Years smoked: 30 Smoking pack-years: 60.00 Smoking status: Former smoker Alcohol intake: current Drinks per week: 7 Substance use: never Substance use type: does not use Lack of Transportation: No Lack of Food: Never True Current Housing: I Have Housing Concerned About Future Housing: No Difficulty Paying Gas/Electric Bills: No Difficulty Paying for Meds: No Currently Unemployed: No Education: Associate Degree Difficulty w/ Childcare or Family Care: No Additional living arrangements comments: The patient lives with his of 55 years. 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 Spiritual care concerns: No Exam Narrative: GENERAL: Well-developed, well-nourished, and in no acute distress. HEAD: Normocephalic, atraumatic. EYES: PER
[2022-06-24 23:48] LABS: Alveolar/Arterial O2 Gradient 96.6 mmHg; Base Excess ABG -1.5 mEq/l (+/-2.0); Device NASAL CANNULA; Fractional Inspired Oxygen 32 %; HCO3 ABG 22.6 mEq/l (22.0-26.0); Modified Allen's Test Pass; Oxygen Content ABG 16.6 %vol (16.0-22.0); Oxyhemoglobin 94.2 % THb (90.0-100.0); PCO2 ABG 36.1 mmHg (35.0-45.0); PO2 ABG 89.3 mmHg (80.0-100.0); PO2 FiO2 Ratio Arterial Blood 2.79 %; Site Drawn RIGHT BRACHIAL; Total Hemoglobin 12.5 g/dL (12.0-18.0); pH ABG 7.414 (7.350-7.450)
[2022-06-25] VITALS (26 sets, daily range): BP systolic 90–119; BP diastolic 57–77; PULSE 70–96; RESP 12–29; TEMP 35.6–36.2; O2SAT 75–100; BMI 24.7
--- NOTE | 2022-06-25 | ECG_ITS ---
Measurements Intervals [place] Rate: 69 P: 201 [place]: 80 QRS: 4 QRSD: 113 T: 134 QT: 416 QTc: 448 Interpretive Statements ELECTRONIC VENTRICULAR PACEMAKER NO FURTHER INTERPRETATION POSSIBLE COMPARED TO ECG 05/28/2022 13:17:51 QRS MORPHOLOGY HAS CHANGED Electronically Signed On 06-25-2022 17:46:25 TELECOM FIELD TECHNICIAN by Eleuterio Gaspar M.D.
[2022-06-25 00:03] LABS: Basophils Percent Auto 0.3 % (0.2-1.2); Eosinophils Percent Auto 0.3 % (0-4.4); Hematocrit 35.6 % (42.0-52.0); Hemoglobin 11.9 g/dL (14.0-18.0); Immature Granulocyte Absolute 0.02 K/mm3 (0.00-0.031); Immature Granulocyte Percent A 0.5 % (0-0.5); Lymphocytes Absolute Auto 0.23 K/mm3 (0.9-3.2); Mean Corpuscular HGB Conc 33.4 g/dl (32-36); Mean Corpuscular Hemoglobin 34.7 pg (26-34); Mean Corpuscular Volume 103.8 fl (80-100); Mean Platelet Volume 12.1 fl (7.4-10.4); Monocytes Absolute Auto 0.6 K/mm3 (0.1-0.6); Monocytes Percent Auto 14.3 % (2.6-8.5); Neutrophils Percent Auto 78.6 % (45.5-73.1); Platelet Count Result 110 k/mm3 (150-375); Red Blood Count 3.43 M/mm3 (4.6-6.20); Red Cell Distribution Width 16.5 % (11.5-14.5); White Blood Count 3.9 K/mm3 (4.5-10.0)
[2022-06-25 00:16] LABS: Alanine Aminotransferase 24 U/L (6-50); Albumin Level 3.4 g/dL (3.5-5.1); Alkaline Phosphatase 142 U/L (38-126); Anion Gap 8 mmol/L (8-16); Aspartate Amino Transferase 40 U/L (17-59); Bilirubin,Total 1.6 mg/dL (0.2-1.3); Blood Urea Nitrogen 42 mg/dL (9-20); Calcium 8.8 mg/dL (8.4-10.2); Carbon Dioxide 27 mmol/L (22-30); Chloride 100 mmol/L (98-107); Estimated Glomerular Filt Rate 42; Glucose 119 mg/dL (65-110); Potassium 4.2 mmol/L (3.4-5.0); Sodium 135 mmol/L (137-145)
[2022-06-25 00:39] LABS: Influenza A QL RT-PCR Negative (Negative); Influenza B QL RT-PCR Negative (Negative); RSV RNA, RT-PCR Negative (Negative); SARS-CoV-2 RNA PCR Negative
[2022-06-25] MEDS: levETIRAcetam 1000MG/NACL100ML 1,000 MG/100 ML BAG 400 MG IVPB (00:48)
[2022-06-25 01:20] LABS: Add Urine Microscopic? NO; Appearance Urine Clear (Clear); Bilirubin Urine Negative (Negative); Blood Urine Negative (Negative); Color Urine Yellow (Yellow); Glucose Urine UA Negative (Negative); Ketones Urine Negative (Negative); Leukocyte Esterase Ur Negative LEU/UL (Negative); Nitrate Urine Negative (Negative); Protein Urine Negative (Negative); Specific Grav Ur 1.015 (1.001-1.035); Urobilinogen Urine 0.2 mg/dL (<2.0)
[2022-06-25 01:27] LABS: Barbiturate Screen Urine Negative (Negative); Benzodiazepines Screen Urine Negative (Negative)
[2022-06-25 01:30] LABS: Amphetamine Screen Urine Negative (Negative); Cannabinoid Screen Urine Negative (Negative); Cocaine Screen Urine Negative (Negative); Methadone Screen Urine Negative (Negative); Opiate Screen Urine Negative (Negative); Phencyclidine Screen Urine Negative (Negative)
[2022-06-25 02:15] LABS: Hyaline Casts Urine 15-19 /lpf; Mucus Urine Rare /lpf; Squamous Epithelial Cell Urine Rare /hpf (Few); WBC Urine 0-3 /hpf
[2022-06-25] MEDS: FUROSEMIDE INJ 40 MG/4 ML VIAL IV PUSH (02:40)
--- NOTE | 2022-06-25 03:20 | PC.NURSE ---
Assumed care of pt at this time.
--- NOTE | 2022-06-25 03:33 | PC.NURSE ---
Per verbal order read back EDP Emerson give 2mg of Midazolam (Versed)
[2022-06-25] MEDS: MIDAZOLAM HCL (*CRX) 2 MG/2 ML VIAL (03:35)
[2022-06-25] MEDS: levETIRAcetam IV 3,000 MG in DEXTROSE 5% 100 ML 460 MG IVPB (04:01)
--- NOTE | 2022-06-25 08:23 | ADMGEN ---
This patient, Bairon Rodas, was admitted to IMU Room 207-01 at 0805. Patient/family oriented to hospital policies and general routines including ID bracelet, bed and alarms, visiting hours, pain management, procedures, bathroom and other care routines, personal items, smoking policy, room service/diet, and visiting hours. Information on how to activate the Rapid Response Team has been discussed. Patient/Family are encouraged to report perceived risks to care and to ask questions if they do not understand what they are told or what they should do.
--- NOTE | 2022-06-25 12:18 | PM.IMHP ---
H&P: HPI History of Present Illness Date/Time: 06/25/22 12:18 Chief Complaint: Altered mental status Narrative: 76-year-old male with recent 10 day admission, discharged on June 07, from this facility for shortness of breath and a few falls. He had an extensive stay requiring significant IV diuresis and Nephrology consultation, paracentesis, ICU stay for dobutamine drip and Cardiology consultation due to severe end-stage heart failure (LVAD and heart failure clinic at [place] were recommended to the patient who refused) with other past medical history significant for heart failure with an EF of 15%, heart disease, hypertension is presenting with altered mental status. EMS brought him in any an episode of unresponsiveness which is baseline is alert and oriented x4. He had some intermittent confusion noted and route. He does wear 2 L of oxygen at baseline and pulse ox showed 84% at the time. Family describes 2 separate episodes were patient appeared to stare off into the distance and became unresponsive. They lasted about 2-3 minutes. This is why they called EMS. In the ambulance, there is an episode of unresponsiveness as well as contraction of the right upper extremity. During this episode, they thought they recognize some agonal breathing although he was satting 96% on 2 L at that time. He was given 1 g of Keppra and Neurology was consulted from the ER. Few hours later, the patient had what appeared to be a seizure with right eye deviation for approximately 2 minutes that was aborted with 2 mg of Versed. Patient is now back to baseline mentation. Review of Systems Review of Systems: 12 point review of systems was assessed and was negative except as noted in the HPI [facility] Past Medical History Medical History Abdominal aortic aneurysm (07/1998) Basal cell carcinoma (BCC) of skin of nose Chronic anemia Chronic kidney disease, stage 3 Congestive heart failure Coronary artery disease GI bleed Secondary to colonic angiodysplasias. Heart failure with reduced ejection fraction Ischemic cardiomyopathy Obstructive sleep apnea on CPAP Peripheral arterial disease with history of revascularization Surgical History Surgical History History of abdominal aortic aneurysm repair History of coronary artery bypass graft (1998) History of endarterectomy History of vascular surgery Bilateral lower extremity stents. Status post biventricular cardiac pacemaker insertion Family History Family History Other Acute myocardial infarction Cerebrovascular accident Peripheral vascular disease Social History Social History Social History: Surrogate medical decision maker: Code status: Full code. Smoking packs per day: 1 Smoking cigarettes per day: 20.0 Years smoked: 30 Smoking pack-years: 30.00 Smoking status: Former smoker Tobacco type: cigarettes Alcohol intake: former Drinks per week: 7 Substance use: never Substance use type: does not use Lack of Transportation: No Lack of Food: Never True Current Housing: I Have Housing Concerned About Future Housing: No Difficulty Paying Gas/Electric Bills: No Difficulty Paying for Meds: No Currently Unemployed: No Education: Trade/Vocational Certificate Difficulty w/ Childcare or Family Care: No Additional living arrangements comments: The patient lives with his of 55 years. 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 Spiritual care concerns: No Meds Home Medications and Allergies Home Medications Medication Instructions Recorded Confirmed Type nitroglycerin 0.4 mg sublingual 0.4 mg sublingual PRN PRN Chest 11/19/21 06/25/22 History tablet Pain pantoprazole 40 mg tablet,delay
--- NOTE | 2022-06-25 13:01 | WPDNEURCNPN ---
Assessment and Plan Assessment and plan (1) Seizure: Code(s): R56.9 - Unspecified convulsions Status: Acute Plan 1. 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 Other problems as mentioned above. Patient has already been loaded with IV Keppra in the emergency room in addition he also received the other medication as documented. Will need an EEG and MRI of the brain Consult date: 06/25/22 HPI: Bairon Rodas is a 76 year old male admitted to the hospital for the complaints of new onset seizure activity with description like unresponsiveness followed by confusion and route to the hospital appeared to be confused but became oriented to time and self. Outpatient medications included simvastatin 20 mg daily, tizanidine 4 mg at night, nitroglycerin and pantoprazole 40 mg daily, past history consistent with abdominal aortic aneurysmal surgery in July 1998, chronic renal disease stage III, congestive heart failure with underlying coronary artery disease, obstructive sleep apnea with CPAP on, peripheral arterial disease with history of [place] vascularization, is smoking 2 packs per day 2 with years smoked 30 and smoking pack years of 60 though former smoker and currently alcohol intake or 7 drinks per week initial examination in the Emergency Room nonfocal as per the family patient had 2 episodes in which he appeared to stare and unresponsive though no fall lasted for 2 to 3 minutes and the 2nd episode prompted the EMS call vital signs otherwise stable routine labs with BUN of 42 negative for influenza AB RSV and stars also negative for drug screen, head CT scan negative for the bleed or major stroke. Review of Systems Review of Systems: All systems reviewed & are unremarkable except as noted in HPI and below [facility] Past Medical History Medical History Abdominal aortic aneurysm (07/1998) Basal cell carcinoma (BCC) of skin of nose Chronic anemia Chronic kidney disease, stage 3 Congestive heart failure Coronary artery disease GI bleed Secondary to colonic angiodysplasias. Heart failure with reduced ejection fraction Ischemic cardiomyopathy Obstructive sleep apnea on CPAP Peripheral arterial disease with history of revascularization Surgical History Surgical History History of abdominal aortic aneurysm repair History of coronary artery bypass graft (1998) History of endarterectomy History of vascular surgery Bilateral lower extremity stents. Status post biventricular cardiac pacemaker insertion Family History Family History Other Acute myocardial infarction Cerebrovascular accident Peripheral vascular disease Social History Social History Social History: Surrogate medical decision maker: Code status: Full code. Smoking packs per day: 1 Smoking cigarettes per day: 20.0 Years smoked: 30 Smoking pack-years: 30.00 Smoking status: Former smoker Tobacco type: cigarettes Alcohol intake: former Drinks per week: 7 Substance use: never Substance use type: does not use Lack of Transportation: No Lack of Food: Never True Current Housing: I Have Housing Concerned About Future Housing: No Difficulty Paying Gas/Electric Bills: No Difficulty Paying for Meds: No Currently Unemployed: No Education: Trade/Vocational Certificate Difficulty w/ Childcare or Family Care: No Additional living arrangements comments: The patient lives with his of 55 years. 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 Spiritual care concerns: No Meds Home Medications and Allergies Home Medications Medication Instructions Recorded Confirmed Type nitroglycerin
[2022-06-25] MEDS: ENOXAPARIN 40 MG/0.4 ML SYRINGE SUB-Q (17:59)
[2022-06-25] MEDS: carvediloL 3.125 MG TABLET PO (21:39)
[2022-06-25] MEDS: CLOPIDOGREL BISULFATE 75 MG TABLET PO (21:40)
[2022-06-25] MEDS: SIMVASTATIN 20 MG TABLET PO (21:40)
[2022-06-25] MEDS: SACUBITRIL/VALSARTAN 24-26 MG TABLET 1 TAB PO (21:40)
[2022-06-26] VITALS (17 sets, daily range): BP systolic 91–111; BP diastolic 61–68; PULSE 65–95; RESP 20; TEMP 36–36.7; O2SAT 91–100; BMI 24.7
[2022-06-26 05:09] LABS: Basophils Percent Auto 0.2 % (0.2-1.2); Eosinophils Percent Auto 0.2 % (0-4.4); Hematocrit 35.4 % (42.0-52.0); Hemoglobin 11.9 g/dL (14.0-18.0); Immature Granulocyte Absolute 0.02 K/mm3 (0.00-0.031); Immature Granulocyte Percent A 0.4 % (0-0.5); Immature Platelet Fraction Pct 10.2 % (0.9-11.2); Lymphocytes Absolute Auto 0.25 K/mm3 (0.9-3.2); Lymphocytes Percent Auto 4.9 % (18.3-44.2); Mean Corpuscular HGB Conc 33.6 g/dl (32-36); Mean Corpuscular Hemoglobin 34.7 pg (26-34); Mean Corpuscular Volume 103.2 fl (80-100); Mean Platelet Volume 11.7 fl (7.4-10.4); Monocytes Absolute Auto 0.5 K/mm3 (0.1-0.6); Monocytes Percent Auto 9.4 % (2.6-8.5); Neutrophils Absolute Auto 4.3 K/mm3 (1.3-6.7); Neutrophils Percent Auto 84.9 % (45.5-73.1); Platelet Count Result 132 k/mm3 (150-375); Red Blood Count 3.43 M/mm3 (4.6-6.20); Red Cell Distribution Width 16.5 % (11.5-14.5); White Blood Count 5.1 K/mm3 (4.5-10.0)
[2022-06-26 05:29] LABS: Alanine Aminotransferase 25 U/L (6-50); Albumin Level 3.1 g/dL (3.5-5.1); Alkaline Phosphatase 111 U/L (38-126); Anion Gap 9 mmol/L (8-16); Aspartate Amino Transferase 39 U/L (17-59); Bilirubin,Total 2.2 mg/dL (0.2-1.3); Blood Urea Nitrogen 44 mg/dL (9-20); Calcium 8.7 mg/dL (8.4-10.2); Carbon Dioxide 26 mmol/L (22-30); Chloride 99 mmol/L (98-107); Estimated CRCL calculation 38 ml/min; Estimated Glomerular Filt Rate 42; Glucose 93 mg/dL (65-110); Potassium 4.2 mmol/L (3.4-5.0); Sodium 134 mmol/L (137-145)
[2022-06-26 06:09] LABS: Vitamin D 25 Hydroxy 51.7 ng/mL
[2022-06-26 06:33] LABS: Folic Acid 10.4 ng/mL (2.76->20)
[2022-06-26] MEDS: PANTOPRAZOLE 40 MG TABLET PO (09:20)
[2022-06-26] MEDS: carvediloL 3.125 MG TABLET PO ×2 (09:20→21:32)
[2022-06-26] MEDS: ENOXAPARIN 40 MG/0.4 ML SYRINGE SUB-Q (09:20)
[2022-06-26] MEDS: SACUBITRIL/VALSARTAN 24-26 MG TABLET 1 TAB PO ×2 (09:20→21:32)
--- NOTE | 2022-06-26 10:43 | PM.IMPN ---
Progress Note: A&P Assessment and Plan (1) Altered mental status: Code(s): R41.82 - Altered mental status, unspecified Status: Acute Assessment and Plan: Resolved, likely secondary to postictal state seizure of unknown etiology No history of seizure disorder Given Keppra 1 g as well as 2 mg of Versed H&P reviewed with reported history recurrent with deviation right last for few minutes. EEG and MRI planned Will order Keppra 500 b.i.d. ABG was good (2) Seizure: Code(s): R56.9 - Unspecified convulsions Status: Acute Assessment and Plan: As above Neurology consultation plan for MRI and EEG. MRI could not be done due to pacemaker Seizure precautions CT with no abnormality (3) Acute on chronic systolic heart failure: Code(s): I50.23 - Acute on chronic systolic (congestive) heart failure Status: Acute Assessment and Plan: Appears to be euvolemic at this time, EF 15%, continue home meds monitor closely Cardiology consultation pending Resume home medication (4) MORAIMA (acute kidney injury): Code(s): N17.9 - Acute kidney failure, unspecified Status: Acute Assessment and Plan: Mild, likely prerenal, monitor Mild CKD stage 3 at baseline (5) Obstructive sleep apnea on CPAP: Code(s): G47.33 - Obstructive sleep apnea (adult) (pediatric); Z99.89 - Dependence on other enabling machines and devices Status: Chronic Assessment and Plan: CPAP at night (6) CHF (congestive heart failure): Code(s): I50.9 - Heart failure, unspecified Status: Acute Assessment and Plan: As above, continue home meds Plan DVT prophylaxis with Lovenox GI prophylaxis not indicated Code status DNR Subjective Date/time seen: 06/26/22 10:43 Interval history: No overnight events. Legs are swollen. Plan for paracentesis as an outpatient. Abdomen is not as much distended. He states shaking episode while he was getting to the kitchen the he did pass out. He is admitted for possible seizure. He denies any prior history of seizure in the past. Review of Systems Review of Systems: All systems reviewed & are unremarkable except as noted in HPI and below Exam Narrative: General: No acute distress, alert and oriented per baseline HEENT: Atraumatic, normocephalic, mucous membranes moist CV: Regular rate and rhythm, S1, S2 Lungs: Clear to auscultation bilaterally, no rales or crackles noted, no wheezes, good air entry Abdomen: Soft, nontender, nondistended Extremities: Normal to inspection bilateral 2+ pitting edema lower extremities Skin: No rashes noted, no lesions or wounds seen Psych: Euthymic, normal affect Neuro: Cranial nerves 2-12 grossly intact, strength +5/5 upper and lower extremities bilaterally Objective Data Vital Signs Vital Signs: Vital Signs - 24 hr 06/25/22 12:00 06/25/22 12:00 06/25/22 16:00 Temperature 96.1 F L 96.4 F L Pulse Rate 76 75 96 Respiratory Rate 12 18 Blood Pressure 96/57 L 119/69 Pulse Oximetry 100 90 Oxygen Delivery Oxygen Flow Rate 06/25/22 14:00 06/25/22 16:00 06/25/22 18:00 Temperature Pulse Rate 77 71 76 Respiratory Rate Blood Pressure Pulse Oximetry Oxygen Delivery Oxygen Flow Rate 06/25/22 12:00 06/25/22 16:00 06/25/22 20:00 Temperature 97.1 F L Pulse Rate 78 Respiratory Rate 20 Blood Pressure 99/66 L Pulse Oximetry 98 98 98 Oxygen Delivery Nasal Cannula Room Air Oxygen Flow Rate 2 06/25/22 21:39 06/25/22 20:00 06/25/22 20:00 Temperature Pulse Rate 71 71 71 Respiratory Rate 20 Blood Pressure Pulse Oximetry 98 Oxygen Delivery Nasal Cannula Oxygen Flow Rate 2 06/25/22 22:00 06/26/22 00:00 06/26/22 00:00 Temperature 98.1 F Pulse Rate 76 74 79 Respiratory Rate 20 Blood Pressure 101/61 Pulse Oximetry 91 Oxygen Delivery Oxygen Flow Rate 06/26/22 00:00 06/26/22 02:00 06/26/22 03:49 Te
[2022-06-26] MEDS: SIMVASTATIN 20 MG TABLET PO (21:32)
[2022-06-26] MEDS: CLOPIDOGREL BISULFATE 75 MG TABLET PO (21:32)
[2022-06-26] MEDS: levETIRAcetam 500MG/NACL 100ML 500 MG/100 ML BAG 400 MG IVPB (21:55)
[2022-06-27] VITALS (18 sets, daily range): BP systolic 87–105; BP diastolic 55–76; PULSE 58–101; RESP 16–22; TEMP 35.8–36.8; O2SAT 94–99
[2022-06-27 05:02] LABS: Basophils Percent Auto 0.5 % (0.2-1.2); Hematocrit 39.6 % (42.0-52.0); Hemoglobin 13.2 g/dL (14.0-18.0); Immature Granulocyte Absolute 0.08 K/mm3 (0.00-0.031); Lymphocytes Absolute Auto 0.09 K/mm3 (0.9-3.2); Lymphocytes Percent Auto 1.2 % (18.3-44.2); Mean Corpuscular HGB Conc 33.3 g/dl (32-36); Mean Corpuscular Hemoglobin 34.5 pg (26-34); Mean Corpuscular Volume 103.4 fl (80-100); Mean Platelet Volume 11.5 fl (7.4-10.4); Monocytes Absolute Auto 0.3 K/mm3 (0.1-0.6); Monocytes Percent Auto 3.9 % (2.6-8.5); Neutrophils Absolute Auto 7.3 K/mm3 (1.3-6.7); Neutrophils Percent Auto 93.4 % (45.5-73.1); Nucleated Red Blood Cells Perc 0.3 % (0.0-0.2); Platelet Count Result 147 k/mm3 (150-375); Red Blood Count 3.83 M/mm3 (4.6-6.20); Red Cell Distribution Width 16.5 % (11.5-14.5); White Blood Count 7.8 K/mm3 (4.5-10.0)
[2022-06-27 05:15] LABS: Alanine Aminotransferase 25 U/L (6-50); Albumin Level 3.2 g/dL (3.5-5.1); Alkaline Phosphatase 124 U/L (38-126); Anion Gap 5 mmol/L (8-16); Aspartate Amino Transferase 37 U/L (17-59); Bilirubin,Total 1.7 mg/dL (0.2-1.3); Blood Urea Nitrogen 43 mg/dL (9-20); Calcium 8.8 mg/dL (8.4-10.2); Carbon Dioxide 27 mmol/L (22-30); Chloride 97 mmol/L (98-107); Estimated CRCL calculation 40 ml/min; Estimated Glomerular Filt Rate 46; Glucose 99 mg/dL (65-110); Magnesium 2.1 mg/dL (1.6-2.3); Sodium 129 mmol/L (137-145)
--- NOTE | 2022-06-27 07:13 | PC.NURSE ---
This RN noticed around 0655 that the patient had pulled off his monitor technician. RN in to see patient and he was walking around the room naked and thought he was at home. Reoriented patient and helped back to bed with bed alarm now on. He quickly became completely oriented.
--- NOTE | 2022-06-27 10:16 | WPDNEUROLOGY ---
Neurology EEG Report General Information Date of Study: 06/27/22 TEST EEG DIAGNOSIS seizures CONDITION OF RECORDING drowsy and sleep EEG NUMBER [id number] CLINICAL HISTORY patient reportedly was at home and had an episode of slurred speech with confusion EEG DESCRIPTION background rhythm consists of low-voltage 15 to 21 hertz per 2nd beta activity with poor anterior-posterior gradient. Bihemispheric 6 to 7 hertz per 2nd theta activity seen intermittently during wakefulness. Bilateral symmetrical sleep activity seen during sleep. Hyperventilation not done. Photic stimulation not done. Non paroxysmal. Nonfocal. Nonlateralizing. IMPRESSION Abnormal record due to the presence of bihemispheric theta activity and absence of the normal background rhythm. There is no evidence of paroxysmal activity throughout the tracing. Clinical correlation recommended these abnormalities could be suggestive of underlying organic or metabolic encephalopathy or postictal state.
[2022-06-27] MEDS: carvediloL 3.125 MG TABLET PO ×2 (10:28→20:35)
[2022-06-27] MEDS: ENOXAPARIN 40 MG/0.4 ML SYRINGE SUB-Q (10:29)
[2022-06-27] MEDS: SACUBITRIL/VALSARTAN 24-26 MG TABLET 1 TAB PO ×2 (10:29→20:35)
[2022-06-27] MEDS: levETIRAcetam 500MG/NACL 100ML 500 MG/100 ML BAG 400 MG IVPB (10:29)
[2022-06-27] MEDS: PANTOPRAZOLE 40 MG TABLET PO (10:29)
[2022-06-27] MEDS: SPIRONOLACTONE 25 MG TABLET PO (14:02)
[2022-06-27] MEDS: FUROSEMIDE 80 MG TABLET PO (16:29)
--- NOTE | 2022-06-27 17:37 | PC.NURSE ---
This patient, Bairon Rodas, was transferred to [[id number] ] on 06/27/22 at 1738. Personal belongings sent with patient. Report given to [ LINDA Santillan]. Appropriate documentation sent with patient.
--- NOTE | 2022-06-27 17:50 | PM.IMPN ---
Progress Note: A&P Assessment and Plan (1) Altered mental status: Code(s): R41.82 - Altered mental status, unspecified Status: Acute Assessment and Plan: Resolved, likely secondary to postictal state seizure of unknown etiology No history of seizure disorder Given Keppra 1 g as well as 2 mg of Versed H&P reviewed with reported history recurrent with deviation right last for few minutes. EEG and MRI planned MRI could not be done due to pacemaker. EEG with no seizure activity but background with slowing. Will order Keppra 500 b.i.d. will increase to 750 mg b.i.d. as suggested by Neurology ABG was good (2) Seizure: Code(s): R56.9 - Unspecified convulsions Status: Acute Assessment and Plan: As above Neurology consultation plan for MRI and EEG. MRI could not be done due to pacemaker Seizure precautions CT with no abnormality (3) Acute on chronic systolic heart failure: Code(s): I50.23 - Acute on chronic systolic (congestive) heart failure Status: Acute Assessment and Plan: Appears to be euvolemic at this time, EF 15%, continue home meds monitor closely Cardiology consultation pending Resume home medication (4) MORAIMA (acute kidney injury): Code(s): N17.9 - Acute kidney failure, unspecified Status: Acute Assessment and Plan: Mild, likely prerenal, monitor Mild CKD stage 3 at baseline (5) Obstructive sleep apnea on CPAP: Code(s): G47.33 - Obstructive sleep apnea (adult) (pediatric); Z99.89 - Dependence on other enabling machines and devices Status: Chronic Assessment and Plan: CPAP at night (6) CHF (congestive heart failure): Code(s): I50.9 - Heart failure, unspecified Status: Acute Assessment and Plan: As above, continue home meds Plan DVT prophylaxis with Lovenox GI prophylaxis not indicated Code status DNR Subjective Date/time seen: 06/27/22 17:50 Interval history: No overnight events. Feels okay. Discussed with the family. Generalized weakness. History reviewed with the family discussed with neurologist Review of Systems Review of Systems: All systems reviewed & are unremarkable except as noted in HPI and below Exam Narrative: General: No acute distress, alert and oriented per baseline HEENT: Atraumatic, normocephalic, mucous membranes moist CV: Regular rate and rhythm, S1, S2 Lungs: Clear to auscultation bilaterally, no rales or crackles noted, no wheezes, good air entry Abdomen: Soft, nontender, nondistended Extremities: Normal to inspection bilateral 2+ pitting edema lower extremities Skin: No rashes noted, no lesions or wounds seen Psych: Euthymic, normal affect Neuro: Cranial nerves 2-12 grossly intact, strength +5/5 upper and lower extremities bilaterally Objective Data Vital Signs Vital Signs: Vital Signs - 24 hr 06/26/22 20:00 06/26/22 21:32 06/26/22 22:08 Temperature 97.7 F Pulse Rate 76 76 73 Respiratory Rate 20 Blood Pressure 96/68 L Pulse Oximetry 92 94 Oxygen Delivery CPAP Oxygen Flow Rate 06/26/22 22:09 06/26/22 20:00 06/26/22 22:00 Temperature Pulse Rate 73 79 Respiratory Rate 20 Blood Pressure Pulse Oximetry 94 94 Oxygen Delivery Nasal Cannula Nasal Cannula Oxygen Flow Rate 2 2 06/26/22 23:52 06/27/22 00:00 06/27/22 00:00 Temperature 97.8 F Pulse Rate 73 73 Respiratory Rate 20 Blood Pressure 100/61 Pulse Oximetry 96 94 Oxygen Delivery Nasal Cannula Oxygen Flow Rate 2 06/27/22 02:00 06/27/22 02:31 06/27/22 03:23 Temperature 97.9 F Pulse Rate 92 82 101 H Respiratory Rate 20 Blood Pressure 104/68 Pulse Oximetry 95 98 Oxygen Delivery CPAP Oxygen Flow Rate 06/27/22 04:00 06/27/22 04:00 06/27/22 06:00 Temperature Pulse Rate 84 85 Respiratory Rate Blood Pressure Pulse Oximetry 94 Oxygen Delivery Nasal Cannula Oxygen Flow Rate 2 06/27/22 08:38 06/27/22 08:00
[2022-06-27] MEDS: CLOPIDOGREL BISULFATE 75 MG TABLET PO (20:35)
[2022-06-27] MEDS: levETIRAcetam Tablet 250 MG, levETIRAcetam Tablet 500 MG 750 MG PO (20:35)
[2022-06-27] MEDS: SIMVASTATIN 20 MG TABLET PO (20:35)
[2022-06-28] VITALS (11 sets, daily range): BP systolic 81–111; BP diastolic 52–67; PULSE 70–87; RESP 16–20; TEMP 35.3–36.6; O2SAT 94–99
[2022-06-28 06:32] LABS: Basophils Absolute Auto 0.1 K/mm3 (0.0-0.1); Basophils Percent Auto 0.7 % (0.2-1.2); Hematocrit 34.8 % (42.0-52.0); Hemoglobin 11.4 g/dL (14.0-18.0); Immature Granulocyte Percent A 1.8 % (0-0.5); Immature Platelet Fraction Pct 8.5 % (0.9-11.2); Lymphocytes Absolute Auto 0.07 K/mm3 (0.9-3.2); Lymphocytes Percent Auto 0.6 % (18.3-44.2); Mean Corpuscular HGB Conc 32.8 g/dl (32-36); Mean Corpuscular Hemoglobin 34.4 pg (26-34); Mean Corpuscular Volume 105.1 fl (80-100); Mean Platelet Volume 10.9 fl (7.4-10.4); Monocytes Absolute Auto 0.7 K/mm3 (0.1-0.6); Monocytes Percent Auto 6.6 % (2.6-8.5); Neutrophils Absolute Auto 10.2 K/mm3 (1.3-6.7); Neutrophils Percent Auto 90.3 % (45.5-73.1); Platelet Count Result 119 k/mm3 (150-375); Red Blood Count 3.31 M/mm3 (4.6-6.20); Red Cell Distribution Width 16.4 % (11.5-14.5); White Blood Count 11.2 K/mm3 (4.5-10.0)
[2022-06-28] MEDS: MIDODRINE HCL 10 MG TABLET PO ×2 (06:43→21:55)
[2022-06-28] MEDS: MIDODRINE HCL 2.5 MG TABLET 5 MG PO (06:44)
[2022-06-28 06:46] LABS: Alanine Aminotransferase 21 U/L (6-50); Albumin Level 2.7 g/dL (3.5-5.1); Alkaline Phosphatase 110 U/L (38-126); Anion Gap 8 mmol/L (8-16); Aspartate Amino Transferase 32 U/L (17-59); Bilirubin,Total 2.1 mg/dL (0.2-1.3); Blood Urea Nitrogen 44 mg/dL (9-20); Calcium 8.5 mg/dL (8.4-10.2); Carbon Dioxide 22 mmol/L (22-30); Chloride 97 mmol/L (98-107); Estimated CRCL calculation 40 ml/min; Estimated Glomerular Filt Rate 46; Glucose 61 mg/dL (65-110); Magnesium 2.1 mg/dL (1.6-2.3); Potassium 3.9 mmol/L (3.4-5.0); Sodium 127 mmol/L (137-145)
[2022-06-28 07:52] LABS: Burr Cells 1+ (NORMAL); Macrocytosis 2+ (NORMAL)
[2022-06-28 07:53] LABS: Schistocytes None Seen (NORMAL)
[2022-06-28 09:37] LABS: Hemoglobin A1C 6.3 % (<5.7)
[2022-06-28] MEDS: levETIRAcetam Tablet 250 MG, levETIRAcetam Tablet 500 MG 750 MG PO ×2 (10:27→21:55)
[2022-06-28] MEDS: PANTOPRAZOLE 40 MG TABLET PO (10:27)
[2022-06-28] MEDS: carvediloL 3.125 MG TABLET PO (10:27)
[2022-06-28] MEDS: SPIRONOLACTONE 25 MG TABLET PO (10:27)
[2022-06-28] MEDS: SACUBITRIL/VALSARTAN 24-26 MG TABLET 1 TAB PO ×2 (10:27→21:55)
[2022-06-28] MEDS: FUROSEMIDE 80 MG TABLET PO (10:28)
[2022-06-28] MEDS: ENOXAPARIN 40 MG/0.4 ML SYRINGE SUB-Q (10:28)
--- NOTE | 2022-06-28 18:38 | PM.IMPN ---
Progress Note: A&P Assessment and Plan (1) Altered mental status: Code(s): R41.82 - Altered mental status, unspecified Status: Acute Assessment and Plan: Resolved, likely secondary to postictal state seizure of unknown etiology No history of seizure disorder Given Keppra 1 g as well as 2 mg of Versed H&P reviewed with reported history recurrent with deviation right last for few minutes. EEG and MRI planned MRI could not be done due to pacemaker. EEG with no seizure activity but background with slowing. Will order Keppra 500 b.i.d. will increase to 750 mg b.i.d. as suggested by Neurology ABG was good (2) Seizure: Code(s): R56.9 - Unspecified convulsions Status: Acute Assessment and Plan: As above Neurology consultation plan for MRI and EEG. MRI could not be done due to pacemaker Seizure precautions CT with no abnormality (3) Acute on chronic systolic heart failure: Code(s): I50.23 - Acute on chronic systolic (congestive) heart failure Status: Acute Assessment and Plan: Appears to be euvolemic at this time, EF 15%, continue home meds monitor closely Cardiology consultation pending Resume home medication (4) MORAIMA (acute kidney injury): Code(s): N17.9 - Acute kidney failure, unspecified Status: Acute Assessment and Plan: Mild, likely prerenal, monitor Mild CKD stage 3 at baseline (5) Obstructive sleep apnea on CPAP: Code(s): G47.33 - Obstructive sleep apnea (adult) (pediatric); Z99.89 - Dependence on other enabling machines and devices Status: Chronic Assessment and Plan: CPAP at night (6) CHF (congestive heart failure): Code(s): I50.9 - Heart failure, unspecified Status: Acute Assessment and Plan: As above, continue home meds The diuresis limited due to hypotension Add midodrine Patient gets a paracentesis scheduled missed his last appointment Will order 1 to get done while he is here Plan DVT prophylaxis with Lovenox GI prophylaxis not indicated Code status DNR Subjective Date/time seen: 06/28/22 18:38 Interval history: No new complaints. Feels a bit short of breath. Family at bedside. Wants to get paracentesis done. Review of Systems Review of Systems: All systems reviewed & are unremarkable except as noted in HPI and below Exam Narrative: General: No acute distress, alert and oriented per baseline HEENT: Atraumatic, normocephalic, mucous membranes moist CV: Regular rate and rhythm, S1, S2 Lungs: Clear to auscultation bilaterally, no rales or crackles noted, no wheezes, good air entry Abdomen: Soft, nontender, mildly distended Extremities: Normal to inspection bilateral 2+ pitting edema lower extremities Skin: No rashes noted, no lesions or wounds seen Psych: Euthymic, normal affect Neuro: Cranial nerves 2-12 grossly intact, strength +5/5 upper and lower extremities bilaterally Objective Data Vital Signs Vital Signs: Vital Signs - 24 hr 06/27/22 20:35 06/27/22 20:00 06/27/22 20:00 Temperature 98.3 F Pulse Rate 80 80 Respiratory Rate 16 Blood Pressure 105/76 Pulse Oximetry 99 99 Oxygen Delivery Nasal Cannula Oxygen Flow Rate 2 06/28/22 00:00 06/28/22 00:00 06/27/22 20:00 Temperature 98 F Pulse Rate 78 87 90 Respiratory Rate 18 Blood Pressure 111/62 Pulse Oximetry 99 Oxygen Delivery Oxygen Flow Rate 06/28/22 04:00 06/27/22 23:30 06/28/22 05:02 Temperature Pulse Rate 86 86 Respiratory Rate Blood Pressure Pulse Oximetry 99 99 Oxygen Delivery CPAP Nasal Cannula Oxygen Flow Rate 2 06/28/22 04:00 06/28/22 10:00 06/28/22 14:02 Temperature 97.6 F 96.3 F L Pulse Rate 78 75 Respiratory Rate 20 16 Blood Pressure 84/52 L 92/58 L Pulse Oximetry 94 97 Oxygen Delivery Nasal Cannula Oxygen Flow Rate 2 06/28/22 14:00 06/28/22 10:27 06/28/22 08:00 Temperature 95.6 F L Pulse Rate 71 77 Respiratory
[2022-06-28] MEDS: SIMVASTATIN 20 MG TABLET PO (21:55)
[2022-06-28] MEDS: CLOPIDOGREL BISULFATE 75 MG TABLET PO (21:55)
[2022-06-29] VITALS (7 sets, daily range): BP systolic 92–100; BP diastolic 58–64; PULSE 70–85; RESP 18; TEMP 36.4–36.5; O2SAT 98–100
[2022-06-29 09:07] LABS: Hematocrit 33.2 % (42.0-52.0); Hemoglobin 11.6 g/dL (14.0-18.0); Immature Platelet Fraction Pct 8.7 % (0.9-11.2); Mean Corpuscular HGB Conc 34.9 g/dl (32-36); Mean Corpuscular Hemoglobin 34.6 pg (26-34); Mean Corpuscular Volume 99.1 fl (80-100); Platelet Count Result 119 k/mm3 (150-375); Red Blood Count 3.35 M/mm3 (4.6-6.20); Red Cell Distribution Width 16.6 % (11.5-14.5); White Blood Count 12.2 K/mm3 (4.5-10.0)
[2022-06-29 09:44] LABS: Band Neutrophils Percent 14 % (0-6); Lymphocytes Absolute Manual 0.24 K/mm3 (1.1-4.5); Monocytes Absolute Manual 0.85 K/mm3 (0.1-0.90); Monocytes Percent Manual 7 % (3-9); Myelocytes Percent 1 %; Neutrophils Absolute Manual 10.98 K/mm3 (1.3-6.7); Neutrophils Percent Manual 76 % (46-73); Total Cells Counted 100
[2022-06-29 09:45] LABS: Schistocytes None Seen (NORMAL)
[2022-06-29] MEDS: levETIRAcetam Tablet 250 MG, levETIRAcetam Tablet 500 MG 750 MG PO (09:49)
[2022-06-29] MEDS: PANTOPRAZOLE 40 MG TABLET PO (09:49)
[2022-06-29] MEDS: FUROSEMIDE 80 MG TABLET PO (09:49)
[2022-06-29] MEDS: ENOXAPARIN 40 MG/0.4 ML SYRINGE SUB-Q (09:49)
[2022-06-29] MEDS: SACUBITRIL/VALSARTAN 24-26 MG TABLET 1 TAB PO (09:50)
[2022-06-29] MEDS: SPIRONOLACTONE 25 MG TABLET PO (09:50)
[2022-06-29] MEDS: MIDODRINE HCL 10 MG TABLET PO ×2 (09:50→12:18)
[2022-06-29 09:58] LABS: Alanine Aminotransferase 21 U/L (6-50); Albumin Level 2.8 g/dL (3.5-5.1); Alkaline Phosphatase 103 U/L (38-126); Anion Gap 7 mmol/L (8-16); Aspartate Amino Transferase 29 U/L (17-59); Bilirubin,Total 2.6 mg/dL (0.2-1.3); Blood Urea Nitrogen 48 mg/dL (9-20); Calcium 8.9 mg/dL (8.4-10.2); Carbon Dioxide 26 mmol/L (22-30); Chloride 98 mmol/L (98-107); Estimated CRCL calculation 38 ml/min; Estimated Glomerular Filt Rate 42; Glucose 71 mg/dL (65-110); Sodium 131 mmol/L (137-145)
--- NOTE | 2022-06-29 11:48 | PM.DS ---
DS: Admitting Diagnosis Discharge Date 06/29/2022 Admitting Diagnosis Seizure DS: Discharge Diagnosis Discharge Diagnosis (1) Altered mental status: Code(s): R41.82 - Altered mental status, unspecified Status: Acute (2) Seizure: Code(s): R56.9 - Unspecified convulsions Status: Acute (3) Acute on chronic systolic heart failure: Code(s): I50.23 - Acute on chronic systolic (congestive) heart failure Status: Acute (4) MORAIMA (acute kidney injury): Code(s): N17.9 - Acute kidney failure, unspecified Status: Acute (5) Obstructive sleep apnea on CPAP: Code(s): G47.33 - Obstructive sleep apnea (adult) (pediatric); Z99.89 - Dependence on other enabling machines and devices Status: Chronic (6) CHF (congestive heart failure): Code(s): I50.9 - Heart failure, unspecified Status: Acute DS: Summary Hospital Course Hospital Course: # Altered mental status: Resolved, likely secondary to postictal state seizure of unknown etiology No history of seizure disorder He was Given Keppra 1 g as well as 2 mg of Versed in the ED H&P reviewed with reported history recurrent with deviation right last for few minutes.? EEG and MRI planned MRI could not be done due to pacemaker.? EEG with no seizure activity but background with slowing. Started on Keppra 500 b.i.d. which was increased to 750 mg b.i.d. as suggested by Neurology ABG was good He will continue Keppra no further seizure during the hospital stay Follow-up with Neurology as an outpatient basis # new onset seizures: Unclear etiology As above Neurology consultation plan for MRI and EEG.? MRI could not be done due to pacemaker Seizure precautions CT with no abnormality # acute on chronic systolic heart failure: Appears to be euvolemic at this time, EF 15%, continue home meds monitor closely Resume home medication # acute kidney injury: Mild, likely prerenal, monitor Mild CKD stage 3 at baseline # Obstructive sleep apnea on CPAP: CPAP at night # hypotension: Admitting diuresis. Midodrine added which he tolerated well. Will continue at discharge to follow-up with PCP/dynamotor repairer # Ascites: Needing intermittent paracentesis. He states he missed last appointment. Ultrasound-guided paracentesis was performed with removal of 1300 cc of fluid on 06/29/2022. # DVT prophylaxis: Lovenox # Code status switched to DNR during the hospital stay Time Spent with Patient Time attestation: Total time spent providing and/or coordinating discharge services: 40 minutes Exam Narrative: General: No acute distress, alert and oriented per baseline HEENT: Atraumatic, normocephalic, mucous membranes moist CV: Regular rate and rhythm, S1, S2 Lungs: Clear to auscultation bilaterally, no rales or crackles noted, no wheezes, good air entry Abdomen: Soft, nontender, mildly distended Extremities: Normal to inspection bilateral 2+ pitting edema lower extremities Skin: No rashes noted, no lesions or wounds seen Psych: Euthymic, normal affect Neuro: Cranial nerves 2-12 grossly intact, strength +5/5 upper and lower extremities bilaterally DS: Data Data Completed and Pending Labs on day of discharge: Labs from last 24 hours 06/29/22 06/29/22 08:51 08:51 WBC 12.2 H RBC 3.35 L Hgb 11.6 L Hct 33.2 L MCV 99.1 D MCH 34.6 H MCHC 34.9 RDW 16.6 H Plt Count 119 L MPV 12.0 H Immature Gran % (Auto) Not Reportable Neut % (Auto) Not Reportable Lymph % (Auto) Not Reportable [place] % (Auto) Not Reportable Eos % (Auto) Not Reportable Baso % (Auto) Not Reportable Lymph # (Auto) Not Reportable [place] # (Auto) Not Reportable Eos # (Auto) Not Reportable Baso # (Auto) Not Reportable Abs Immat Gran (auto) Not Reportable Absolute Neuts (auto) Not Reportable Absolute Nucleated RBC Not Reportable Total Counted 100 Neutrophils % (Manual) 76 H Band Neutrophils % 14 H Lymphocyt
--- NOTE | 2022-06-29 15:55 | PC.NURSE ---
[facility]charging pharmacy called to clarify Midodrine since there is a past medical history of cardiovascular disease. Dr. Madison aware. Per Dr. Madison patient is to continue Midodrine since it is helping his hypotension. Pharmacy made aware. Son made aware.
[2022-07-01 14:12] LABS: C-Peptide 4.47 ng/mL (0.80-3.85)
[2022-07-02 12:50] LABS: Insulin Level Total <1.0 uIU/mL (<=19.6)
== END 2022-06-29 14:55 | disposition home health service (06) | DRG 101 ==
LOC: ANHED 06-25 01:53 → ANHIMU 06-25 07:00 → ANH3MEDSUR 06-27 17:06
PROVIDERS: Student in an Organized Health Care Education/Training Program; Admitting Provider Internal Medicine; Emergency Provider Preventive Medicine Aerospace Medicine; PCP Family Medicine; Visit Provider Internal Medicine
DX: G40.89 Other seizures (principal); I13.0 Hypertensive heart and chronic kidney disease with heart failure and stage 1 through stage 4 chronic kidney disease, or unspecified chronic kidney disease; I50.22 Chronic systolic (congestive) heart failure; N17.9 Acute kidney failure, unspecified; R18.8 Other ascites; Z95.0 Presence of cardiac pacemaker; N18.30 Chronic kidney disease, stage 3 unspecified; I25.10 Atherosclerotic heart disease of native coronary artery without angina pectoris; D63.1 Anemia in chronic kidney disease; I95.9 Hypotension, unspecified; G47.33 Obstructive sleep apnea (adult) (pediatric); Z66 Do not resuscitate; Z20.822 Contact with and (suspected) exposure to COVID-19; Z95.1 Presence of aortocoronary bypass graft; Z82.49 Family history of ischemic heart disease and other diseases of the circulatory system; Z87.891 Personal history of nicotine dependence; Z79.899 Other long term (current) drug therapy
CPT/HCPCS: 36415; 36600; 49083; 51701; 70450; 71045; 80053; 80307; 81003; 82306; 82607; 82746; 82805; 83036; 83525; 83735; 84443; 84484; 84681; 85025; 85055; 87637; 93005; 95816; 96365; 96367; 96372; 96375; 97110; 97116; 97161; 97166; 97530; 99285; A9270; G0378; J1650; J1940; J1953; J2250